=== PATIENT | female | born 1970 | race Caucasian/White ===

== ENCOUNTER 2025-05-15 13:24 | Outpatient (OUT) | payer MEDICARE, SELFPAY ==
--- OUTSIDE RECORDS SUMMARY | 2024-09-03 11:30 | XMS_ITS ---
Author Organization [facility] Servic es Address [address] [facility] [place] [address] Care Team Providers Care Crepe Sole Scourer Name Role Phone MISS Isabel Johansen Primary Care Provider REASON FOR VISIT BH F/U Encounters Encounter Location Date Provider Diagnosis [facility] [address] [facility] [place] [address] 09/03/2024 Isabel Johansen Plan Of Treatment No Information Progress Notes * CLEVELAND HOLMANADOB: 0 (54 yo F)Acc No.[id number]:09/03/2024 BH F/U - Patient Patient: ANKUR LUINDA :?RASHEED Simons LISW-SDOB:1970 ???Age:53 Y???Sex:FemaleDate:09/03/2024Phone:[phone]:[address] [place] [phone] Subjective: * Chief Complaints: * B H F/U Care Plan Details* * Electronic signature of Isabel NELIDA Johansen on 05/15/2025 at 01:28 PM EDT Sign off status: Pending * Provider: RASHEED Presley LISW-Rivka Date: 0 09/03/2024 Generated for Printing/Faxing/eTransmitting on:?05/15/2025 01:28 PM EDT
--- OUTSIDE RECORDS SUMMARY | 2024-09-16 06:00 | XMS_ITS ---
Author Organization [facility] Servic es Address [address] [facility] [place] [address] Care Team Providers Care Streetcar Motorman Name Role Phone MISS Isabel Johansen Primary Care Provider REASON FOR VISIT BH F/U Encounters Encounter Location Date Provider Diagnosis [facility] [address] [facility] [place] [address] 09/16/2024 Isabel Johansen Plan Of Treatment No Information Progress Notes * CLEVELAND HOLMANADOB: 0 (54 yo F)Acc No.[id number]:09/16/2024 BH F/U - Patient Patient: Mary VALENTINE ADI :?RASHEED Simons LISW-SDOB:1970 ???Age:53 Y???Sex:FemaleDate:09/16/2024Phone:[phone]:[address] [place] [phone] Subjective: * Chief Complaints: * B H F/U Billing Information: * Procedure Codes: Care Plan Details* * Electronic signature of NELIDA Ingram on 05/15/2025 at 01:28 PM EDT Sign off status: Pending * Provider: RASHEED Presley LISW-S Date: 0 09/16/2024 Generated for Printing/Faxing/eTransmitting on:?05/15/2025 01:28 PM EDT
--- OUTSIDE RECORDS SUMMARY | 2024-11-04 11:00 | XMS_ITS ---
Author Organization [facility] Servic es Address [address] [facility] [place] [place] [address] Care Team Providers Care Hereditary Cancer Program Coordinator Name Role Phone MISS Isabel Johansen Primary Care Provider [phone] REASON FOR VISIT BH F/U Encounters Encounter Location Date Provider Diagnosis [facility] Services [address] [facility] [place] [address] 11/04/2024 Isabel Johansen Plan Of Treatment No Information Progress Notes * CLEVELAND HOLMANADOB: 0 (54 yo F)Acc No.[id number]:11/04/2024 BH F/U - Patient Patient: Mary VALENTINE ADI :?RASHEED Simons LISW-SDOB:1970 ???Age:54 Y???Sex:FemaleDate:11/04/2024Phone:[phone]:[address] [place] [phone] Subjective: * Chief Complaints: * B H F/U Billing Information: * Procedure Codes: Care Plan Details* * Electronic signature of NELIDA Ingram on 05/15/2025 at 01:28 PM EDT Sign off status: Pending * Provider: RASHEED Presley LISW-S Date: 0 11/04/2024 Generated for Printing/Faxing/eTransmitting on:?05/15/2025 01:28 PM EDT
--- OUTSIDE RECORDS SUMMARY | 2024-12-05 12:00 | XMS_ITS ---
Author Organization [facility] Servic es Address [address] [facility] [place] [address] Care Team Providers Care Intermediate Project Manager Name Role Phone MISS Isabel Johansen Primary Care Provider [phone] REASON FOR VISIT BH F/U Encounters Encounter Location Date Provider Diagnosis [facility] [address] [facility] [place] [address] 12/05/2024 Isabel Johansen Plan Of Treatment No Information Progress Notes * CLEVELAND HOLMANADOB: 0 (54 yo F)Acc No.[id number]:12/05/2024 BH F/U - Patient Patient: Mray VALENTINE ADI :?RASHEED Simons LISW-SDOB:1970 ???Age:54 Y???Sex:FemaleDate:12/05/2024Phone:[phone]:[address] [place] [phone] Subjective: * Chief Complaints: * B H F/U Billing Information: * Procedure Codes: Care Plan Details* * Electronic signature of NELIDA Ingram on 05/15/2025 at 01:28 PM EDT Sign off status: Pending * Provider: RASHEED Presley LISW-S Date: 0 12/05/2024 Generated for Printing/Faxing/eTransmitting on:?05/15/2025 01:28 PM EDT
--- OUTSIDE RECORDS SUMMARY | 2025-05-06 11:00 | XMS_ITS | Encounter Summary ---
Author Organization [facility] Address [address] [place] [address] Care Team Providers Care Route Deliverer Name Role Phone Jus Sprague DO Primary Care Provider [phone] Jesus Green Unavailable Guillermina Martínez DO Unavailable [phone] Reason for Referral * Imaging (Routine) - ClosedSpecialtyDiagnoses / ProceduresReferred By Contact Referred To ContactRadiology Diagnoses Pain and swelling of left lower leg Procedures Vascular US lower extremity venous duplex right Jesus Green PA [address] [place] [address] Phone: tel: fax: [facility] [address] [place] [address] Phone: tel: fax: Referral IDStatusReasonStart DateExpiration DateVisits RequestedVisits [id number]/21/20254/ Reason for Visit * ReasonCommentsLeg Pain Encounter Details DateTypeDepartmentCare Team (Latest Contact Info)Guobsmtjffl17/21/2025 11:00 AM EDTOffice Visit [facility] [address] [place] [address] Jesus Green PA [address] [place] [address] Type 2 diabetes mellitus with Charcot joint [...] relatives?Once a week05/01/2023How often do you attend lutheran or alevism services?Never3Do you belong to any clubs or organizations such as lutheran groups, unions, fraternal or athletic groups, or school groups?No05/01/2023How often do you attend meetings of the clubs or organizations you belong to?Never05/01/2023re you , , , , never , or living with a partner?Living with zzkbesl1605/01/2023 AUDIT-CAnswerDate RecordedQ1: How often do you have [...] steady place to sleep or slept in [place] (including now)?No05/01/2023CommentsUnknownSex and Gender InformationValueDate RecordedSex Assigned at DedujNksevl16/19/2023 2:19 PM EDT Legal QmjLkoqlz00/15/2023 6:45 PM EDTGender NvqxilbqLphtiq15/19/2023 2:19 PM EDT Sexual OrientationNot on filedocumented as of this encounter Last Filed Vital Signs Vital SignReadingTime TakenCommentsBlood Ujfpzbwl562/8805/06/2025 11:12 AM EDT Esfjk672705/06/2025 11:12 AM UNLDhqfcdbzuuq46.5 ??C (95.9 ??F)05/06/2025 11:12 AM EDTRespiratory Rate--Oxygen Xnyxiphyqj04%05/06/2025 11:12 AM EDTInhaled Oxygen Concentration--Cmneky240 kg (226 lb 12.8 oz)05/06/2025 11:12 AM GLZJogbjl890.2 cm (5' 7 )05/06/2025 11:12 AM EDTBody [...] 11:17 AM Bela Padilla MAPatient Health Questionnaire-2 Knoxx107 11:17 AM EDT Bela Sanabria MA documented as of this encounter Progress Notes * CATHY Alamguer - 05/06/2025 11:00 AM EDT Images from [...] Plan of Treatment DateTypeDepartmentCare Team (Latest Contact Info)Ycyoxsuznyg71/30/2025 2:15 PM ESTOffice Visit [facility] [address] [place] [address] Judith Garnett, [address] [place] [address] documented as of this encounter Goals GoalPatient [...] MD Narrative 05/06/2025 3:33 PM EDT EXAM: [facility] US LOWER EXTREMITY VENOUS DUPLEX RIGHT [...] Note Alcides Lincoln MD - 05/06/2025 EXAM: [facility] US LOWER EXTREMITY VENOUS DUPLEX RIGHT [...] Lincoln MD Authorizing ProviderResult TypeResult StatusJesus Green [facility] US PROCEDURES Final Result documented [...] DO [address] [place] [address] PCP - GeneralFamily Medicine11/22/22 Jesus Green PA [address] [place] [address] Physician AssistantFamily Medicine03/20/24 Guillermina Martínez DO [address] [place] [address] Pulmonary Disease03/20/24documented as of this encounter
--- OUTSIDE RECORDS SUMMARY | 2025-05-06 11:30 | XMS_ITS | Encounter Summary ---
Author Organization [facility] Address [address] [place] [address] Care Team Providers Care Demolition Crane Operator Name Role Phone Jus Sprague DO Primary Care Provider [phone] Jesus Green Unavailable Guillermina Martínez DO Unavailable [phone] Reason for Visit * Imaging (Routine) - ClosedSpecialtyDiagnoses / ProceduresReferred By Contact Referred To ContactRadiology Diagnoses Pain and swelling of left lower leg Procedures Vascular US lower extremity venous duplex right Jesus Green, CATHY [address] [place] [address] Phone: tel: fax: [facility] [address] [place] [address] Phone: tel: fax: Referral IDStatusReasonStart DateExpiration DateVisits RequestedVisits [id number]/21/20254/ Encounter Details DateTypeDepartmentCare Team (Latest Contact Info)Omavntupptb27/21/2025 11:30 AM EDTAncillary Procedure [facility] [address] [place] [address] Pain and swelling of left [...] relatives?Once a week05/01/2023How often do you attend sikhism or jain services?Never05/01/2023o you belong to any clubs or organizations such as sikhism groups, unions, fraternal or athletic groups, or school groups?No05/01/2023How often do you attend meetings of the clubs or organizations you belong to?Never05/01/2023re you , , , , never , or living with a partner?Living with gehiggy4105/01/2023 AUDIT-CAnswerDate RecordedQ1: How often do you have [...] steady place to sleep or slept in [facility] (including now)?No05/01/2023CommentsUnknownSex and Gender InformationValueDate RecordedSex Assigned at TpuacFlpuln64/19/2023 2:19 PM EDT Legal EgoCjaeyy79/15/2023 6:45 PM EDTGender ThneihhnIdwelv69/19/2023 2:19 PM EDT Sexual OrientationNot on filedocumented as of this encounter Functional Status * Over the past 2 weeks, how often have you been bothered by any of the following problems?QuestionAnswerDate of AssessmentAuthorLittle interest or pleasure in doing thingsNot at all05/06/2025 11:17 AM Bela Padilla MA Feeling down, depressed, or hopelessNot at all05/06/2025 11:17 AM Bela Padilla MAPatient Health Questionnaire-2 Evghb549 11:17 AM EDT Bela Sanabria MA documented as of this encounter Plan of Treatment DateTypeDepartmentCare Team (Latest Contact Info)Mahzhkoziqa85/30/2025 2:15 PM ESTOffice Visit [facility][1] [address] [place] [address] Juan Miguel Garnettison Vanessa, DO [address] [place] [address] documented as of this encounter Goals GoalPatient Goal TypeAssociated ProblemsRecent ProgressPatient-Stated?Author Help patient manage antidepressant medication Care PlanPatient on antidepressant monitoring Jesus Machado, PAdocumented as of this encounter Procedures Procedure NamePriorityDate/TimeAssociated DiagnosisComments[facility] LOWER EX[facility]REM[facility]ENOUS DUPLEX WAGWLPgoxxvz05/21/2025 12:01 PM EDT Pain and swelling of [...] MD Narrative 05/06/2025 3:33 PM EDT EXAM: [facility] US LOWER EXTREMITY VENOUS DUPLEX RIGHT [...] Note Alcides Lincoln MD - 05/06/2025 EXAM: [facility] US LOWER EXTREMITY VENOUS DUPLEX RIGHT [...] DO [address] [place] [address] PCP - GeneralFamily Medicine11/22/22 Jesus Green PA [address] [place] [address] Physician AssistantFamily Medicine03/20/24 Guillermina Martínez DO [address] [place] [address] Pulmonary Disease03/20/24documented as of this encounter
--- OUTSIDE RECORDS SUMMARY | 2025-05-15 13:28 | XMS_ITS | Encounter Summary ---
Author Organization [facility] Address [address] [place] [address] Care Team Providers Care Helper/Driver Name Role Phone Jus Sprague DO Primary Care Provider [phone] Jesus Green Unavailable Guillermina Martínez DO Unavailable [phone] Encounter Details DateTypeDepartmentCare Team (Latest Contact Info)Tfyywgtcghw42/21/2025Abstract [facility] [address] [place] [address] Sarmad Martins, DPM FACFAS [address] [place] [address] Social History Tobacco UseTypesPacks/DayYears UsedDateSmoking Tobacco: NeverSmokeless [...] relatives?Once a week05/01/2023How often do you attend taoism or baptism services?Never05/01/2023o you belong to any clubs or organizations such as taoism groups, unions, [employer] or athletic groups, or school groups?No05/01/2023How often do you attend meetings of the clubs or organizations you belong to?Never05/01/2023re you , , , , never , or living with a partner?Living with toilyzl1505/01/2023 AUDIT-CAnswerDate RecordedQ1: How often do you have [...] steady place to sleep or slept in [facility] (including now)?No05/01/2023CommentsUnknownSex and Gender InformationValueDate RecordedSex Assigned at XtdtjCyqhws05/19/2023 2:19 PM EDT Legal NihGaxqcz69/15/2023 6:45 PM EDTGender UaiunaozKbvtdg48/19/2023 2:19 PM EDT Sexual OrientationNot on filedocumented as of this encounter Functional Status * Over the past 2 weeks, how often have you been bothered by any of the following problems?QuestionAnswerDate of AssessmentAuthorLittle interest or pleasure in doing thingsNot at all05/06/2025 11:17 AM Bela Padilla MA Feeling down, depressed, or hopelessNot at all05/06/2025 11:17 AM Bela Padilla MAPatient Health Questionnaire-2 Ihsph866 11:17 AM EDT Bela Sanabria MA documented as of this encounter Plan of Treatment DateTypeDepartmentCare Team (Latest Contact Info)Dllyamlypbk41/30/2025 2:15 PM ESTOffice Visit [facility] [place] [facility] [address] [place] [address] Judith Garnett, [address] [place] [address] documented as of this encounter Goals GoalPatient Goal TypeAssociated ProblemsRecent ProgressPatient-Stated?Author Help patient manage antidepressant medication Care PlanPatient on antidepressant monitoring planNoMyers, Jesus M, PAdocumented as of this encounter Visit Diagnoses Not on filedocumented in this encounter Additional Health Concerns Active ProblemsNoted DateDiagnosed DatePatient on antidepressant monitoring plan 5AssessmentNoted TimePHQ-9 Depression Total Score: 10108/07/2023 1:26 PM ESTdocumented as of this encounter Care Teams Team MemberRelationshipSpecialtyStart DateEnd Date Jus Sprague, [address] [place] [address] PCP - GeneralFamily Medicine11/22/22 Jesus Green, PA [address] [place] [address] Physician AssistantFamily Medicine03/20/24 Guillermina Martínez DO [address] [place] [address] Pulmonary Disease03/20/24documented as of this encounter
--- OUTSIDE RECORDS SUMMARY | 2025-05-15 13:28 | XMS_ITS | Patient Health Record ---
Author Organization [facility] Address [address] [place] [address] Care Team Providers Care Doubling Machine Operator Name Role Phone MISS Isabel Johansen Primary Care Provider Briseyda Willis Unavailable [phone] Jony Steven Unavailable [phone] Zheng, MS. Hernandez Unavailable [phone] Reason For Referral No Information Problems Problem Type SNOMED Code ICD Code Onset Dates Problem Status W/U Status Risk Notes Problem Posttraumatic stress disorder (4 4341072) Post traumatic stress disorder (PTSD) (F43.10) Activeconfirmed Encounters Encounter Location Date Provider Diagnosis [facility] [address] [place] [address] 05/28/2024 Isabel Johansen [facility] [place] [address]/20/2024 [facility] [place] [address] [facility] [place] [address]Isabel Zuleta traumatic stress disorder (PTSD) F43.10 [facility] [place] [place] [address]/09/2024 Isabel Zuleta traumatic stress disorder (PTSD) F43.10[facility] [address] [place] [address]Isabel Zuleta traumatic stress disorder (PTSD) F43.10[facility] [place] [address]/Katelyn MillerPost traumatic stress disorder (PTSD) F43.10[facility] [place] [address] 09/23/2024Katelyn MillerPost traumatic stress disorder (PTSD) F43.10[facility] [place] [address]/Katelyn MillerPost traumatic stress disorder (PTSD) F43.10[facility] [place] [address]/01/2025Katelyn MillerPost traumatic stress disorder (PTSD) F43.10[facility] [place] [address]/11/2024Katelyn MillerPost traumatic stress disorder (PTSD) F43.10[facility] [place] [address] 11/25/2024Katelyn MillerPost traumatic stress disorder (PTSD) F43.10 Assessments Encounter Date Diagnosis (ICD Code) Assessment Notes Treatment Notes Treatment Clinical Notes Section Notes 06/03/2024 Post traumatic stress disorder ( PTSD) (ICD-10 - F43.10) 06/24/2024ost traumatic stress disorder (PTSD) (ICD-10 - F43.10)4Post traumatic stress disorder (PTSD) (ICD-10 - F43.10)09/09/2024Post traumatic stress disorder (PTSD) (ICD-10 - F43.10)09/23/2024Post traumatic stress disorder (PTSD) (ICD-10 - F43.10)10/07/2024Post traumatic stress disorder (PTSD) (ICD-10 - F43.10)10/21/2024Post traumatic stress disorder (PTSD) (ICD-10 - F43.10) 11/18/2024Post traumatic stress disorder (PTSD) (ICD-10 - F43.10)11/25/2024Post traumatic stress disorder (PTSD) (ICD-10 - F43.10) Plan Of Treatment No Information Insurance Providers Payer Name Payer Address Payer Phone Subscriber Number Group Number Insured Name Patient Relationship to Insured Coverage Start Date Coverage End Date [employer] MEDIBLUE DUAL-ELIGB LE [address] [place] [address] [id number] ADI HOLMAN Self - patient is the insured 5 [facility] MEDICAID SECONDARYPO [address] [place] [phone] [id number], RHONDASelf - patient is the [id number] 2024[facility] [address] [place]UN[place] [id number], RHONDASelf - patient is the [id number] 2023MEDICARE [id number] [facility] EVY FANG [id number], RHONDASelf - patient is the insured 2023
--- OUTSIDE RECORDS SUMMARY | 2025-05-15 13:28 | XMS_ITS | Encounter Summary ---
Author Organization [facility] Address [address] [place] [address] Care Team Providers Care Parallel Computing Software Engineer Name Role Phone Jus Sprague DO Primary Care Provider [phone] Jesus Green Unavailable Guillermina Martínez DO Unavailable [phone] Encounter Details DateTypeDepartmentCare Team (Latest Contact Info)Nhgkpjeecuh39/24/2025Refill [facility] [address] [place] [address] Sarmad Martins, DPM FACFAS [address] [place] [address] Ulcer of right foot with fat layer exposed (HCC) (Primary Dx) Social History Tobacco UseTypesPacks/DayYears UsedDateSmoking Tobacco: NeverSmokeless [...] relatives?Once a week05/01/2023How often do you attend quaker or tenriism services?Never05/01/2023o you belong to any clubs or organizations such as quaker groups, unions, fraternal or athletic groups, or school groups?No05/01/2023How often do you attend meetings of the clubs or organizations you belong to?Never05/01/2023re you , , , , never , or living with a partner?Living with dradeql9805/01/2023 AUDIT-CAnswerDate RecordedQ1: How often do you have [...] steady place to sleep or slept in ashelter (including now)?No05/01/2023CommentsUnknownSex and Gender InformationValueDate RecordedSex Assigned at TnkxxPqhaak41/19/2023 2:19 PM EDT Legal KdaQfkbhd73/15/2023 6:45 PM EDTGender KesnsfrwThikin92/19/2023 2:19 PM EDT Sexual OrientationNot on filedocumented as of this encounter Miscellaneous Notes * Telephone Encounter - ELISABET Palma - 05/09/2025 11:37 AM EDT Pain meds acute pain documented in this encounter Plan of Treatment DateTypeDepartmentCare Team (Latest Contact Info)Nxidshumjmu66/30/2025 2:15 PM ESTOffice Visit [facility] [address] [place] [address] Judith Garnett, DO [address] [place] [address] documented as of this encounter Goals GoalPatient Goal TypeAssociated ProblemsRecent ProgressPatient-Stated?Author Help patient manage antidepressant medication Care PlanPatient on antidepressant monitoring Jesus Machado, PAdocumented as of this encounter Visit Diagnoses Diagnosis Ulcer of right foot with fat layer exposed (HCC)- Primary documented in this encounter Additional Health Concerns Active ProblemsNoted DateDiagnosed DatePatient on antidepressant monitoring plan 5AssessmentNoted TimePHQ-9 Depression Total Score: 10108/07/2023 1:26 PM ESTdocumented as of this encounter Care Teams Team MemberRelationshipSpecialtyStart DateEnd Date Jus Sprague DO [address] [place] [address] PCP - GeneralFamily Medicine11/22/22 Jesus Green, PA [address] [place] [address] Physician AssistantFamily Medicine03/20/24 Guillermina Martínez DO [address] [place] [address] Pulmonary Disease03/20/24documented as of this encounter
--- OUTSIDE RECORDS SUMMARY | 2025-05-15 13:28 | XMS_ITS | Encounter Summary ---
Author Organization [facility] Address [address] [place] [address] Care Team Providers Care Propulsion Systems Engineer Name Role Phone Jus Sprague DO Primary Care Provider [phone] Jesus Green Unavailable Guillermina Martínez DO Unavailable [phone] Encounter Details DateTypeDepartmentCare Team (Latest Contact Info)Esgeufbwkog83/21/2025amboo flowsheet [facility] [address] [facility] [address] [place] [address] Jesus Green, CATHY [address] [facility] [address] [place] [address] Social History Tobacco UseTypesPacks/DayYears UsedDateSmoking Tobacco: NeverSmokeless [...] relatives?Once a week05/01/2023How often do you attend mormon or adventist services?Never05/01/2023o you belong to any clubs or organizations such as mormon groups, unions, [employer] or athletic groups, or school groups?No05/01/2023How often do you attend meetings of the clubs or organizations you belong to?Never05/01/2023re you , , , , never , or living with a partner?Living with rqjjqtl6705/01/2023 AUDIT-CAnswerDate RecordedQ1: How often do you have [...] now)?No05/01/2023CommentsUnknownSex and Gender InformationValueDate RecordedSex Assigned at FwzmlLzudun54/19/2023 2:19 PM EDT Legal UtaIdrhlu25/15/2023 6:45 PM EDTGender LbuwkersTbdmee95/19/2023 2:19 PM EDT Sexual OrientationNot on filedocumented as of this encounter Plan of Treatment DateTypeDepartmentCare Team (Latest Contact Info)Sbpfddtvvnt21/30/2025 2:15 PM ESTOffice Visit [facility] [address] [place] [address] Judith Garnett DO [address] [place] [address] documented as of this encounter Goals GoalPatient Goal TypeAssociated ProblemsRecent ProgressPatient-Stated?Author Help patient manage antidepressant medication Care PlanPatient on antidepressant monitoring planJesus Worthington, PAdocumented as of this encounter Visit Diagnoses Not on filedocumented in this encounter Additional Health Concerns Active ProblemsNoted DateDiagnosed DatePatient on antidepressant monitoring plan 12/11/2024ssessmentNoted TimePHQ-9 Depression Total Score: 1:26 PM ESTdocumented as of this encounter Care Teams Team MemberRelationshipSpecialtyStart DateEnd Date Jus Sprague DO [address] [place] [address] PCP - GeneralFamily Medicine11/22/22 Jesus Green PA [address] [place] [address] Physician AssistantFamily Medicine03/20/24 Guillermina Martínez DO [address] [place] [address] Pulmonary Disease03/20/24documented as of this encounter
--- OUTSIDE RECORDS SUMMARY | 2025-05-15 13:28 | XMS_ITS | Clinical Summary ---
Author Organization [facility] Address [address] [place] [address] Care Team Providers Care Phlebotomy Instructor Name Role Phone Jus Sprague DO Primary Care Provider [phone] Jesus Green Unavailable Guillermina Martínez DO Unavailable Allergies Active AllergyReactionsCriticalityNoted DateCommentsAmoxicillin-Pot Clavulanate FfziWou7311/18/2022arbamide Afkspdwm33/27/5297YmojlrahvdkUsbwwNta71/05/2023 Mold - ears GjdzkrecuwvrzvOvtmqYli94/05/2023 Mold - ears KharxiexoxrCxtcVqo42/05/2023 Medications MedicationSigDispense QuantityRefillsLast FilledStart DateEnd DateStatus acetaminophen (Tylenol) 500 MG tablet 1 tablet Orally at bedtimeActive albuterol HFA 90 mcg/act inhaler Indications:WheezingInhale 2 puffs every 4 (four) hours if needed for wheezing or shortness of breath 18 g ctive EPINEPHrine (Epipen) 0.3 MG/0.3ML injection syringe Indications:Allergic reaction to food, initial encounterInject 0.3 mL (0.3 mg) as directed 1 (one) time for 1 dose use as directed for allergic reaction and then call 911 0.3 mL ctive meclizine (Antivert) 25 MG tablet Indications:VertigoTake 2 tablets (50 mg) by mouth 2 (two) times a day as needed for dizziness 30 tablet 03/13/2024ctive pen needle 31G x 8 mm misc Indications:Type 2 diabetes mellitus with hypoglycemia without coma, with long- term current use of insulin ([facility])Injection subcutaneous 5 times a day 200 each 4Active atorvastatin (Lipitor) 10 MG tablet Indications:Mixed hyperlipidemiaTake 1 tablet (10 mg) by mouth Daily 90 tablet 4Active cetirizine (ZyrTEC) 10 MG tablet Indications:Allergic rhinitis, unspecified seasonality, unspecified triggerTake 1 tablet (10 mg) by mouth Daily as needed (q24hrs) 90 tablet 5Active fluticasone (Cutivate) 0.005 % ointment Indications:Rash and nonspecific skin eruptionApply topically 2 (two) times a day 60 g 5Active rOPINIRole (Requip) 3 MG tablet Indications:Restless Leg SyndromeTake 1 tablet (3 mg) by mouth in the morning and 1 tablet (3 mg) in the evening and 1 tablet (3 mg)before bedtime. 270 tablet 5Active ondansetron (Zofran) 8 MG tablet Indications:Bilious vomiting with nauseaTAKE 1 TABLET BY MOUTH EVERY 8 HOURS NEEDED FOR NAUSEA AND/OR VOMITING 20 tablet 5Active spironolactone (Aldactone) 25 MG tablet Take 25 mg by mouth in the morning.6Active furosemide (Lasix) 40 MG tablet Take 40 mg by mouth Daily5Active sertraline (Zoloft) 50 MG tablet Indications:AnxietyTake 1 tablet (50 mg) by mouth Daily 30 tablet /5Active metFORMIN (Glucophage) 500 MG tablet Indications:Diabetic polyneuropathy associated with type 2 diabetes mellitus (HCC)Take 1 tablet (500 mg) by mouth in the morning and 1 tablet (500 mg) before bedtime. 180 tablet [id number] lidocaine (Uro-Jet) 2 % gel Indications:Chronic foot ulcer, right, with necrosis of muscle ([facility])Insert into the urethra if needed for mild pain 60 mL 5Active Tirzepatide (Mounjaro) 7.5 MG/0.5ML solution auto-injector Indications:Type 2 diabetes mellitus with Charcot joint arthropathy ([facility])Inject 7.5 mg under the skin 1 (one) time per week 6 mL 5Active montelukast (Singulair) 10 MG tablet Indications:Allergic rhinitis, unspecified seasonality, unspecified triggerTake 1 tablet (10 mg) by mouth at bedtime 90 tablet 3065Active sertraline (Zoloft) 100 MG tablet Indications:AnxietyTAKE 1 TABLET BY MOUTH DAILY 90 tablet 1075Active Rcloqdabmfc-Azvogfezr-Msypnb (Trelegy Ellipta) 100-62.5-25 MCG/ACT aerosol powder Indications:Obstructive airway disease (HCC)INHALE 1 PUFF BY MOUTH DAILY 60 each 505Active Continuous Glucose Sensor (FreeStyle Leyla 3 Plus Sensor) [facility] [place] Indications:Type 2 diabetes mellitus with Charcot joint arthropathy (HCC)1 Device Every 15 Days 6 each 3085Active gabapentin (Neurontin) 300 MG capsule Indications:Diabetic polyneuropathy associated with type 2 diabetes mellitus (HCC)Take 1 capsule (300 mg) by mouth in the morning and 1 capsule (300 mg) in the evening and 1 capsule(300 mg) before bedtime. 270 capsule 5Active carvedilol (Coreg) 25 MG tablet Indications:Primary hypertensionTAKE 1 TABLET BY MOUTH 2 TIMES A DAY IN THE MORNING AND EVENING WITH MEALS 180 tablet 5Active Brexpiprazole (Rexulti) 1 MG tablet Indications:Anxiety,Moderate episode of recurrent major depressive disorder (HCC)Take 1 mg by mouth Daily 90 tablet 5Active insulin glargine (Lantus SoloStar) 100 UNIT/ML pen Indications:Diabetic polyneuropathy associated with type 2 diabetes mellitus (HCC)Inject 24 Units under the skin in the morning and 24 Units before bedtime. 30 mL 5Active insulin lispro (HumaLOG) 100 UNIT/ML injection Indications:Diabetic polyneuropathy associated with type 2 diabetes mellitus (HCC)10 units breakfast/lunch, 15 units dinner plus correction (max daily 50 units) 45 mL 5Active zolpidem (Ambien) 10 MG tablet Indications:Psychophysiological insomniaTake 1 tablet (10 mg) by mouth as needed at bedtime for sleep 30 tablet 5Active cyclobenzaprine (Flexeril) 10 MG tablet Indications:Sciatica of left sideTake 1 tablet (10 mg) by mouth 3 (three) times a day as needed for muscle spasms 30 tablet 5Active LORazepam (Ativan) 1 MG tablet Indications:Psychophysiological insomniaTake 1 tablet (1 mg) by mouth every 6 (six) hours if needed for anxiety 30 tablet 5Active hydrALAZINE (Apresoline) 25 MG tablet Indications:Primary hypertensionTake 1 tablet (25 mg) by mouth in the morning and 1 tablet (25 mg) before bedtime. 180 tablet 5Active omeprazole (PriLOSEC) [address] capsule Indications:Gastroesophageal reflux disease without esophagitisTake 1 capsule (20 mg) by mouth in the morning. Take before meals. Do not crush or chew.Take 1 capsule (20 mg) by mouth in the morning. Take before meals. Do not crush or chew. 90 capsule 5Active sulfamethoxazole-trimethoprim (Bactrim DS) 800-160 MG per tablet Indications:Cellulitis of right lower extremityTake 1 tablet by mouth in the morning and 1 tablet before bedtime. Do all this for 10 days. 20 tablet /5Active insulin lispro (HumaLOG) 100 UNIT/ML injection Indications:Diabetic polyneuropathy associated with type 2 diabetes mellitus (HCC)1:5 breakast/dinner, 1:8 lunch (max daily 50 units) 45 mL Discontinued(Dose adjustment) fluticasone (Flonase) 50 MCG/ACT nasal spray Indications:Nasal congestionAdminister 1-2 sprays into each nostril Daily Shake gently. Before first use, prime pump. After use, clean tip and replace cap 16 g Discontinued Emollient (Cetaphil) moisturizing lotion Indications:Rash and nonspecific skin eruptionApply topically if needed for dry skin 237 mL Discontinued insulin glargine (Lantus SoloStar) 100 UNIT/ML pen Indications:Diabetic polyneuropathy associated with type 2 diabetes mellitus (HCC)Inject 18 Units under the skin in the morning and 18 Units before bedtime. 30 mL /07/2024Discontinued(Dose adjustment) omeprazole (PriLOSEC) [address] capsule Indications:Gastroesophageal reflux disease without esophagitisTake 1 capsule (20 mg) by mouth in the morning. Take before meals. Do not crush or chew.Take 1 capsule (20 mg) by mouth in the morning. Take before meals. Do not crush or chew. 90 capsule Discontinued(Reorder) hydrALAZINE (Apresoline) 25 MG tablet Indications:Primary hypertensionTAKE 1 TABLET BY MOUTH EVERY MORNING AND TAKE 1 TABLET BY MOUTH EVERY NIGHT AT BEDTIME 60 tablet Discontinued(Reorder) HYDROcodone-acetaminophen (Driscoll) 5-325 MG tablet Indications:Ulcer of right foot with fat layer exposed (HCC)Take 1 tablet by mouth every 6 (six) hours if needed for severe pain for up to 5 days 20 tablet Expired sodium hypochlorite (Dakin's, HALF-Strength,) external solution Indications:Ulcer of right foot with fat layer exposed (HCC)Apply topically 1 (one) time for 1 dose 300 mL Expired LORazepam (Ativan) 1 MG tablet Indications:Psychophysiological insomniaTake 1 tablet (1 mg) by mouth every 6 (six) hours if needed for anxiety 30 tablet Discontinued(Reorder) zolpidem (Ambien) 10 MG tablet Indications:Psychophysiological insomniaTake 1 tablet (10 mg) by mouth as needed at bedtime for sleep 30 tablet Discontinued(Reorder) cyclobenzaprine (Flexeril) 10 MG tablet Indications:Sciatica of left sideTake 1 tablet (10 mg) by mouth 3 (three) times a day as needed for muscle spasms 30 tablet Discontinued(Reorder) HYDROcodone-acetaminophen (Driscoll) 5-325 MG tablet Indications:Ulcer of right foot with fat layer exposed (HCC)Take 1 tablet by mouth every 6 (six) hours if needed for severe pain for up to 5 days 20 tablet 51Expired Active Problems ProblemNoted DateDiagnosed DateType 2 diabetes mellitus with hyperglycemia, with long-term current use of wnscflo6812/13/2024Type 2 diabetes mellitus with stage 3b chronic kidney disease, with long-term current use of ggitgvf9812/13/2024Stage 3 chronic kidney cuddyiz6010/01/2024Low cqdgepamsy85/18/2025Symptomatic anemia 10/01/2024Foreign body in right foot10/01/2024hronic ulcer of right foot with necrosis of kyydty6310/01/2024MI 40.0-44.9, adult09/03/2024Sleep apnea09/03/2024 CKD (chronic kidney disease)04/17/20244166Qfzdt05/02/2024Shortness of breath 04/17/2024Essential msuorwuyfltu20/02/5679Bchvlujqzx93/27/2024Osteomyelitis 03/12/2024osttraumatic stress /27/2024ellulitis of foot, right 01/08/2024Ulcer of toe of right foot01/08/2024ellulitis of right leg01/08/2024 TAYLOR (acute kidney injury)12/21/2023OPD (chronic obstructive pulmonary disease) 12/21/20231195Llsymjajfmix68/06/2024cute kidney prbhxn1112/21/2023alculus of gallbladder without cholecystitis without xbwwhvqxsiw20/01/2024holelithiasis without zkoxjswlglu27/01/2024Allergic fpzoeggs11/05/9289Cubumls62/05/2023harcot arthropathy of jxksyvx0711/18/2022Type 2 diabetes mellitus with Charcot joint bddivcerqqr15/05/2023 Assessment & Plan (04/16/2025 4:41 PM EDT): During the appointment today all pertinent labs, imaging, health maintenance, and glucose readings were reviewed. Encouraged to check blood glucose throughout the day with some fasting and some PP readings. They are to bring their glucose meter/cgm in to all appointments. All of the patients questions, treatment options, and current care plan and goals were discussed. Acopy of this along with pertinent instructions were given to the patient at the end of the appointment. The patient voices understanding of all of this and is to call in between appointments if they have any problems or questions. Sigrid Archer is struggling to gain control of their diabetes. I am very concerned for diabetes related complications. , The patient is wearing their cgm on a daily basis and making decisions in regards to adjusting insulin daily as well for at least the last 60 days , Discussed dietary changes at length. Encouraged to limit simple carbs and focus more on healthy protein/fat with all meals andsnacks. They should also avoid any sugary drinks. , Instructed on the importance of taking insulin before eating. If it has been more than 30-45 min since eating they should not give the meal dose but should just give a correction insulin dose. , Instructed on the proper insulin injection technique either in the abdomen, upper outer thigh, or back of the arm. They are to rotate injection sites toprevent scar tissue. , Instructions given today include: Insulin instructions and Dietary education. Will increase lantus and give her set doses for her humalog as she is not really counting carbs/calculating the carb ratio correctly. She doesn't feel comfortable doing this and would like set insulin doses. Assessment & Plan (12/13/2024 9:43 AM EDT): During the appointment today all pertinent labs, imaging, health maintenance, and glucose readings were reviewed. Encouraged to check blood glucose throughout the day with some fasting and some PP readings. They are to bring their glucose meter/cgm in to all appointments. All of the patients questions, treatment options, and current care plan and goals were discussed. Acopy of this along with pertinent instructions were given to the patient at the end of the appointment. The patient voices understanding of all of this and is to call in between appointments if they have any problems or questions. Sigrid Archer is struggling to gain control of their diabetes. I am very concerned for diabetes related complications. , The patient is wearing their cgm on a daily basis and making decisions in regards to adjusting insulin daily as well for at least the last 60 days , Discussed dietary changes at length. Encouraged to limit simple carbs and focus more on healthy protein/fat with all meals andsnacks. They should also avoid any sugary drinks. , Instructed on the importance of taking insulin before eating. If it has been more than 30-45 min since eating they should not give the meal dose but should just give a correction insulin dose. , Instructed on the proper insulin injection technique either in the abdomen, upper outer thigh, or back of the arm. They are to rotate injection sites toprevent scar tissue. , Instructions given today include: Insulin instructions and Dietary education. She is working on getting back on track. Will change to leyla 3 cgm. Discussed counting carbs as Idon't think she was always doing this correctly before. Will increase her mounjaro as well as lantus. Will decrease metformin due to declined kidney function. Assessment & Plan (08/20/2023 4:59 PM EST): During the appointment today all pertinent labs, imaging, health maintenance, and glucose readings were reviewed. Encouraged to check blood glucose throughout the day with some fasting and some PP readings. They are to bring their glucose meter/cgm in to all appointments. All of the patients questions, treatment options, and current care plan and goals were discussed. Acopy of this along with pertinent instructions were given to the patient at the end of the appointment. The patient voices understanding of all of this and is to call in between appointments if they have any problems or questions. Sigrid Archer is struggling to gain control of their diabetes. I am very concerned for diabetes related complications. , Discussed dietary changes at length. Encouraged to limit simple carbs and focus more on healthy protein/fat with all meals and snacks. They should also avoid any sugary drinks. , Instructions given today include: Dietary education. Will add mounjaro. GLP-1 and GLP-1/GIP agonist: Instructed on injection technique and the use of the medication. Pt has no hx of pancreatitis or fmh of mtc. Pt is to call if any significant vomiting, diarrhea, or reflux. Deformity of right foot11/18/20223585Yepzpbqzlg19/05/2023iabetic polyneuropathy associated with type 2 diabetes icxmjncq48/05/2023 Assessment & Plan (04/21/2023 12:36 PM EDT): During the appointment today all pertinent labs, imaging, health maintenance, and glucose readings were reviewed. Encouraged to check blood glucose throughout the day with some fasting and some PP readings. They are to bring their glucose meter/cgm in to all appointments. All of the patients questions, treatment options, and current care plan and goals were discussed. Acopy of this along with pertinent instructions were given to the patient at the end of the appointment. The patient voices understanding of all of this and is to call in between appointments if they have any problems or questions. Sigrid Archer is struggling to gain control of their diabetes. I am very concerned for diabetes related complications. , The patient is wearing their cgm on a daily basis and making decisions in regards to adjusting insulin daily as well for at least the last 60 days , Discussed dietary changes at length. Encouraged to limit simple carbs and focus more on healthy protein/fat with all meals andsnacks. They should also avoid any sugary drinks. , Instructed on the importance of taking insulin before eating. If it has been more than 30-45 min since eating they should not give the meal dose but should just give a correction insulin dose. , Instructions given today include: Insulin instruction s and Dietary education. She is to work on improving her diet and given suggestions for this. Will increase insulin to try and improve control. Dineuukb28/05/2023Moderate nonproliferative diabetic retinopathy of both eyes with macular edema associated with type2 diabetes /05/2023lass 2 severe obesity due to excess calories with serious comorbidity and body mass index (BMI) of35.0 to 35.9 in adult11/18/2022Nuclear senile xdbrdwka52/05/2023 Eefrgkceti98/05/2023Restless legs wrzjxjke10/05/2023Restless legs11/18/2022Not bearing weight on lower /22/2020Open wound of foot08/07/2019Diabetic foot ulcer04/05/2019 Resolved Problems ProblemNoted DateDiagnosed DateResolved DateDiabetes mellitus due to underlying condition with diabetic xthulkbxuglbgf84Diabetes04/17/2024 12/13/2024Long-term insulin useLong term current use of pgbyrmc31Type 2 diabetes mellitus with hypoglycemia without comaType 2 diabetes mellitus without gzfovudpsyztc65/05/2023 3Charcot joint of foot/ Overview (10/01/2024): Outside Source Comment: Last Assessment & Plan: During the appointment today all pertinent labs, imaging, health maintenance, andglucose readings were reviewed. Encouraged to check blood glucose throughout the day with some fasting and some PP readings. They are to bring their glucose meter/cgm in to all appointments. All ofthe patients questions, treatment options, and current care plan and goals were discussed. A copy of this along with pertinent instructions were given to the patient at the end of the appointment. The patient voices understanding of all of this and is to call in between appointments if they have any problems or questions. Sigrid Archer is struggling to gain control of their diabetes. I am very concerned for diabetes related c omplications. , Discussed dietary changes at length. Encouraged to limit simple carbs and focus more on healthy protein/fat with all meals and snacks. They shouldalso avoid any sugary drinks. , Instructions given today include: Dietary education. Will add mounjaro. GLP-1 and GLP-1/GIP agonist: Instructed on injection technique and the use of the medication.Pt has no hx of pancreatitis or fmh of mtc. Pt is to call if any significant vomiting, diarrhea, orreflux. Polyneuropathy due to type 2 diabetes qoorpkdb24 Overview (10/01/2024): Outside Source Comment: Last Assessment & Plan: During the appointment today all pertinent labs, imaging, health maintenance, andglucose readings were reviewed. Encouraged to check blood glucose throughout the day with some fasting and some PP readings. They are to bring their glucose meter/cgm in to all appointments. All ofthe patients questions, treatment options, and current care plan and goals were discussed. A copy of this along with pertinent instructions were given to the patient at the end of the appointment. The patient voices understanding of all of this and is to call in between appointments if they have any problems or questions. Sigrid Archer is struggling to gain control of their diabetes. I am very concerned for diabetes related complications. , The patient is wearing their cgm on a daily basisand making decisions in regards to adjusting insulin daily as well for at least the last 60 days , Discussed dietary changes at length. Encouraged to limit simple carbs and focus more on healthy protein/fat with all meals and snacks. They should also avoid any sugary drinks. , Instructed on the importance of taking insulin before eating. If it has been more than 30-45 min since eating they shouldnot give the meal dose but should just give a correction insulin dose. , Instructions given today include: Insulin instructions and Dietary education. She is to work on improving her diet and given suggestions for this. Will increase insulin to try and improve control. Diabetic macular edema with retinopathy associated with type 2 diabetes mellitus Foot tlblkutlk83 Encounters DateTypeDepartmentCare HcpmDrhvvutfzku79/24/2025Refill [facility] [address] [place] [phone] Sarmad Martins, DPM FACFAS Ulcer of right foot with fat layer exposed (HCC) (Primary Dx)05/06/2025 11:30 AM EDTAncillary Procedure [facility] [address] [place] [phone] Pain and swelling of left lower leg05/06/2025 11:00 AM EDTOffice Visit [facility] [address] [place] [phone] Jesus Green PA Type 2 diabetes mellitus with Charcot joint arthropathy (HCC) (Primary Dx); Psychophysiological insomnia; Sciatica of left side; Primary hypertension; Gastroesophageal reflux disease without esophagitis; Gait instability; 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); Pain and swelling of right lower vdyreprhc01/21/2025Results Follow-Up [facility] [address] [place] [phone] Jesus Green PA Vascular US lower extremity venous duplex right10/21/2025Orders Only [facility] [address] [place] [phone] Jesus Green, PA Cellulitis of right lower extremity (Primary Dx)05/06/2025bstract [facility] [address] [place] [address] Dolce, Sarmad R, DPM FACFAS 05/06/2025amboo flowsheet [facility] [address] [place] [address] Jesus Green PA 05/06/20252291Qajlou52/20/2025Telephone [facility] [address] [place] [phone] Elena Damico RN Cqbxhcadggn59/17/2025Telephone [facility] [address] [place] [phone] Dolce, Sarmad R, DPM FACFAS 04/30/2025bstract [facility] [address] [place] [phone] Dolce, Sarmad R, DPM FACFAS 04/25/2025bstract [facility] [address] [place] [address] Dolce, Sarmad R, DPM FACFAS 04/15/2025 3:15 PM EDTOffice Visit [facility] [address] [place] [phone] Judith Garnett, DO Diabetic polyneuropathy associated with type 2 diabetes mellitus (HCC) (Primary Dx); Type 2 diabetes mellitus with Charcot joint arthropathy (HCC); Type 2 diabetes mellitus with stage 3b chronic kidney disease, with long-term current use of insulin (HCC); Moderate nonproliferative diabetic retinopathy of both eyes with macular edema associated with type2 diabetes mellitus (HCC); Class 2 severe obesity due to excess calories with serious comorbidity and body mass index (BMI) of35.0 to 35.9 in adult ([facility])04/15/2025amboo flowsheet [facility] [address] [place] [address] Judith Garnett, 04/15/20253306Fuazmg14/26/2025 11:00 AM EDTOffice Visit [facility] [address] [place] [phone] Jesus Green, PA Psychophysiological insomnia; Sciatica of left side; Anxiety; Moderate episode of recurrent major depressive disorder (HCC)04/11/2025Travel 04/11/2025Refill [facility] [address] [place] [address], [place] [address] Sarmad Martins, DPM FACFAS Ulcer of right foot with fat layer exposed (HCC) (Primary Dx)04/10/2025bstract [facility] [address] [place] [address] Sarmad Martins, DPM FACFAS 03/27/2025Refill [facility] [address] [place] [address] Jus Sprague, DO Primary kwrrsnfqyvqp72/10/2025Refill [facility] [address] [place] [phone] Jus Sprague, DO Diabetic polyneuropathy associated with type 2 diabetes mellitus (HCC)03/12/2025 11:20 AM EDTOffice Visit [facility] [address] [place] [phone] Jesus Green, PA Anxiety (Primary Dx); Moderate episode of recurrent major depressive disorder (HCC); Frequency of urination; Psychophysiological insomnia; Diabetic ulcer of left foot associated with type 2 diabetes mellitus, with bone involvement withoutevidence of necrosis, unspecified part of foot (HCC) 03/12/2025amb flowsheet [facility] [address] [place] [phone] Jesus Green PA 03/12/20257705Cmxtmd19/26/2025Telephone [facility] [address] [place] [address] Judith Garnett, DO Appointment Pdeaand4903/10/2025Ref[facility] Pod[address] [phone] Dolce, Sarmad R, DPM FACFAS Ulcer of right foot with fat layer exposed (HCC) (Primary Dx)03/07/2025[facility] [address] [place] [address] Jesus Green, PA Psychophysiological insomnia; Sciatica of left side03/07/2025Ref[facility] [address] [place] [address] Judith Garnett, DO Type 2 diabetes mellitus with Charcot joint arthropathy (HCC)03/07/2025[facility] [address] [place] [address] Jus Sprague, DO Primary apkibxruukft70/21/[address]25Ref[address] [phone] Dolce, Sarmad R, DPM FACFAS Ulcer of right foot with fat layer exposed (HCC) (Primary Dx)02/28/2025bstract [facility] [address] [place] [address] Dolce, Sarmad R, DPM FACFAS 02/28/2025bstract [facility] [address] [place] [address] Dolce, Sarmad R, DPM FACFAS 02/27/2025[facility] [address] [place] [address] Jesus Green, PA Psychophysiological waprhoxv07/13/2025bstract [facility] Pod[facility]r[address] [place] [address] Sarmad Martins R, DPM FACFAS 02/24/2025Telephone [facility] [address] [place] [address] Sarmad Martins R, DPM FACFAS 02/24/2025bstract [facility] [address] [place] [address] Jus Sprague, DO 02/22/2025Refill [facility] Pulmon[facility] [address] [place] [address] Guillermina Martínez, DO Obstructive airway disease (HCC)02/19/2025bstract [facility] [address] [place] [address] Jus Sprague, DO 02/13/2025bstract [facility] [address] [place] [address] Sarmad Martins R, DPM FACFAS from Last 3 Months Immunizations ImmunizationAdministration DatesNext DrtOzbn6403/18/2019 Family History Medical HistoryRelationNameCommentsNo Known ProblemsBrotherCOPDFatherRon Suzi HypertensionFatherRon ChaffinBreast cancerMaternal GrandmotherHyperlipidemia MotherKathy ChaffinHypertensionMotherKathy ChaffinSeizuresMotherKathy Suzi Transient ischemic attackMotherKathy ChaffinUlcerative colitisMotherKathy ChaffinBreast cancerPaternal GrandmotherNo Known ProblemsSisterColon cancerNeg HxOvarian cancerNeg HxRelationNameStatusCommentsBrother1 brotherFatherRon ChaffinAliveMaternal GrandmotherMotherKathy ChaffinDeceasedPaternal Grandmother Sister1 sister Social History Tobacco UseTypesPacks/DayYears UsedDateSmoking Tobacco: NeverSmokeless Tobacco: Never Tobacco Cessation:Counseling Given: Yes Alcohol UseStandard Drinks/WeekCommentsNever0 (1 standard drink = 0.6 oz pure alcohol)caffeine intake : noneHumiliation, Afraid, Rape, and Kick questionnaire AnswerDate RecordedWithin the last year, have you been afraid of your partner or ex-partner?No05/01/2023Within the last year, have you been humiliated or emotionally abused in other ways by your partner or ex-partner?No05/01/2023 Within the last year, have you been kicked, [...] relatives?Once a week05/01/2023How often do you attend spiritism or rastafari services?Never3Do you belong to any clubs or organizations such as spiritism groups, unions, fraternal or athletic groups, or school groups?No05/01/2023How often do you attend meetings of the clubs or organizations you belong to?Never05/01/2023re you , , , , never , or living with a partner?Living with bujbeeb6305/01/2023 AUDIT-CAnswerDate RecordedQ1: How often do you have [...] steady place to sleep or slept in [facility] (including now)?No05/01/2023CommentsUnknownSex and Gender InformationValueDate RecordedSex Assigned at XjshpUmkxai14/19/2023 2:19 PM EDT Legal CncHeziok13/15/2023 6:45 PM EDTGender SeaffnusTrgzyv87/19/2023 2:19 PM EDT Sexual OrientationNot on file Last Filed Vital Signs Vital SignReadingTime TakenCommentsBlood Ipvmdgph091/8805/06/2025 11:12 AM EDT Quhrg994205/06/2025 11:12 AM AUKJrklrifasdc01.5 ??C (95.9 ??F)05/06/2025 11:12 AM EDTRespiratory Rate--Oxygen Qfbujianxb11%05/06/2025 11:12 AM EDTInhaled Oxygen Concentration--Mzfwah231 kg (226 lb 12.8 oz)05/06/2025 11:12 AM YWCHzuopi482.2 cm (5' 7 )05/06/2025 11:12 AM EDTBody Mass Index35.5205/06/2025 11:12 AM EDT Plan of Treatment DateTypeDepartmentCare Team (Latest Contact Info)Dinxcnnbfan07/30/2025 2:15 PM ESTOffice Visit [facility] [address] [place] [address] Judith Garnett, [address] [place] [address] Health MaintenanceDue DateLast DoneCommentsCT Nhipsonpjtuf36/11/1970Colonoscopy 1969Colorectal Cancer Htvzwttyq97/11/1970FIT-DNA1969FIT1969 FOBT1969 4504Ffhkndrrhrecb12/11/1970Pap Smear1990Cervical Cancer Iyycegfar73/11/2000HPV/Kimgly9409/25/1999Diabetes: Urine Protein Screening 41, 04/20/2022Influenza Vaccine (#1)2025Medicare Annual Wellness (AWV), 06/07/2024, 05/01/2023, Additional history existsDiabetes: Hemoglobin A1C509/, 12/11/2024, 10/02/2024, Additional history hjnlnuBfojfzvhx84/14/202603/, 3Diabetes: Retinopathy Omsfanzvf44, 09/19/2024, 08/01/2024, Additional history exists Goals GoalPatient Goal TypeAssociated ProblemsRecent ProgressPatient-Stated?Author Help patient manage antidepressant medication Care PlanPatient on antidepressant monitoring Jesus Machado PA Procedures Procedure NamePriorityDate/TimeAssociated DiagnosisCommentsVASC US LOWER EXTREMITY VENOUS DUPLEX LTSKHRsypaiy39/21/2025 12:01 PM EDT Pain and swelling of left lower leg POCT GLYCOSYLATED HEMOGLOBIN (HGB A1C)Iqzuenb4404/15/2025 3:28 PM EDT Type 2 diabetes mellitus with Charcot joint arthropathy (HCC) POCT URINALYSIS EYNVYCNEKpbfjdl94/27/2025 12:49 PM EDT Frequency of urination DIABETIC RETINOPATHY SCREENING - OU - BOTH JVFSFrqkork02/20/2025 4:16 PM EDTBI MAMMOGRAM SCREENING TOMOSYNTHESIS IVJDFIRIJInxlhpp88/14/2025 8:22 AM EDT Encounter for screening mammogram for malignant neoplasm of breast MICROALBUMIN / CREATININE URINE YDWDDZsztuhk77/31/2023 8:07 AM EDT from Last 3 Months or Most Recently Relevant to Health Maintenance Results * Vascular US lower extremity venous duplex right (05/06/2025 12:01 PM EDT) Anatomical RegionLateralityModalityLower ExtremitiesUltrasoundSpecimen (Source)Anatomical Location / LateralityCollection Method / VolumeCollection TimeReceived Time05/06/2025 3:24 PM EDT Impressions 05/06/2025 3:33 PM EDT NO RIGHT LOWER EXTREMITY DVT IDENTIFIED. ELECTRONICALLY SIGNED BY: Alcides Lincoln MD Narrative 05/06/2025 3:33 PM EDT EXAM: [facility] US LOWER EXTREMITY VENOUS DUPLEX RIGHT DATE:05/06/2025 [...] rightinguinal lymph node is noted. Procedure Note Alcdies Lincoln MD - 05/06/2025 EXAM: [facility] US LOWER EXTREMITY VENOUS DUPLEX RIGHT DATE:05/06/2025 [...] Lincoln MD Authorizing ProviderResult TypeResult StatusJesus Green [facility] US PROCEDURES Final Result * POCT glycosylated hemoglobin (Hb A1C) docked device (04/15/2025 3:28 PM EDT) ComponentValueRef RangeTest MethodAnalysis TimePerformed AtPathologist SignatureHemoglobin A1C12.2Specimen (Source)Anatomical Location / Laterality Collection Method / VolumeCollection TimeReceived TimeBloodVenous blood specimen / Ypnbejw8704/15/2025 3:28 PM EDT Narrative Authorizing ProviderResult TypeResult Alexandra Garnett DOPOINT OF CARE TEST ENTER/EDIT ORDERABLESFinal Result * (ABNORMAL) POCT urinalysis dipstick manually resulted (03/12/2025 12:49 PM EDT)ComponentValueRef RangeTest MethodAnalysis TimePerformed AtPathologist SignatureColor, UAYellowClarity, UAClearGlucose, UAModerateNegative - 2000(110) ++++ mg/dLBilirubin, UANegativeNegative - 4(70) +++ mg/dLKetones, UA NegativeNegative - 160(16) ++++ mg/dLSpec Grav, UA1.0151 - 1.03Blood, UA NegativeNegative - 50 Kennedy/mcLpH, UA6.55 - 9Protein, UA2+Negative - 2000(20) ++++ mg/dLUrobilinogen, UA0.20.2 - 12 mg/dLLeukocytes, UANegativeNegative - 500+++ Yg/mcLNitrite, UANegativeNegative - PositiveSpecimen (Source) Anatomical Location / LateralityCollection Method / VolumeCollection Time Received MuhuWwopn64/27/2025 12:49 PM EDT Narrative Authorizing ProviderResult TypeResult Sree Green PAPOINT OF CARE TEST ENTER/EDIT ORDERABLESFinal Result * (ABNORMAL) Diabetic Retinopathy Screening - OU - Both Eyes (10/03/2024 4:16 PM EDT)Anatomical RegionLateralityModalityHeadOther Narrative Authorizing ProviderResult TypeResult Chandana GOMEZ PHOTOGRAPHY Final Result * Bilateral screening mammogram with tomosynthesis (09/27/2024 8:22 AM EDT) Anatomical RegionLateralityModalityBreastBilateralMammographySpecimen (Source) Anatomical Location / LateralityCollection Method / VolumeCollection Time Received Time09/29/2024 11:32 AM EDT Impressions 09/29/2024 11:38 AM EDT Impression: No specific evidence of malignancy seen in either breast. BIRADS 2 - Benign Findings DENSITY: There are scattered areas of fibroglandular density. FOLLOW-UP: Routine Screening Mammogram ELECTRONICALLY SIGNED BY: Jose R Cano M.D. Narrative 09/29/2024 11:38 AM EDT Examination: BI MAMMOGRAM SCREENING TOMOSYNTHESIS BILATERAL Clinical History: Breast cancer screening Technique: Screening digital mammography study of both breasts was performed with 2-D and 3-D tomosynthesis imaging. Study was compared to the prior exam dated 05/16/2023. Findings: There is no evidence of interval dominant spiculated mass, grouped microcalcifications, or skin thickening which would be suggestive of malignancy. ?? Scattered benign-appearing calcifications are noted bilaterally. Axillary lymph nodes are noted bilaterally and appear unremarkable. Procedure Note Jose R Cano MD - 09/29/2024 Examination: BI MAMMOGRAM SCREENING TOMOSYNTHESIS BILATERAL Clinical History: Breast cancer screening Technique: Screening digital mammography study of both breasts wasperformed with 2-D and 3-D tomosynthesis imaging. Study was compared tothe prior exam dated 05/16/2023. Findings: There is no evidence of interval dominant spiculated mass,grouped microcalcifications, or skin thickening which would be suggestiveof malignancy. Scattered benign-appearing calcifications are noted bilaterally. Axillarylymph nodes are noted bilaterally and appear unremarkable. IMPRESSION: Impression: No specific evidence of malignancy seen in either breast. BIRADS 2 - Benign Findings DENSITY: There are scattered areas of fibroglandular density. FOLLOW-UP: Routine Screening Mammogram ELECTRONICALLY SIGNED BY: Jose R Cano M.D. Authorizing ProviderResult TypeResult Sree Green PAIMG BI PROCEDURES Final Result * (ABNORMAL) Microalbumin / creatinine urine ratio (05/16/2023 8:07 AM EDT) ComponentValueRef RangeTest MethodAnalysis TimePerformed AtPathologist SignatureCREATININE, RANDOM MOZTN32417 - 275 mg/dLQUESTALBUMIN, URINE6.9See Note: mg/dLQUESTComment: Reference Range: Reference Range Not established ALBUMIN/CREATININE RATIO, RANDOM URINE63(H)<30 mcg/mg creatQUESTComment: The ADA defines abnormalities in albumin excretion as follows: Albuminuria Category ?Result (mcg/mg creatinine) Normal to Mildly increased <30 Moderately increased ? 30-299 Severely increased > OR = 300 The ADA recommends that at least two of three specimens collected within a 3-6 month period be abnormal before considering a patient to be within a diagnostic category. Specimen (Source)Anatomical Location / LateralityCollection Method / Volume Collection TimeReceived Time05/16/2023 8:07 AM EDT1 3:56 PM EDT Narrative [facility] - 05/17/2023 12:35 PM EDT FASTING:YES FASTING: YES Resulting Agency Comment Performing Organization Information ?Site ID: [id number] ?Name: [facility] ?Address: [address] [place] [address], [address] [place] [id number] ?Director: Cristi Kelly MD Authorizing ProviderResult TypeResult Sree Green PALAB URINE ORDERABLES Final ResultPerforming OrganizationAddressCity/State/ZIP CodePhone Number [facility] from Last 3 Months or Most Recently Relevant to Health Maintenance Additional Health Concerns Active ProblemsNoted DateDiagnosed DatePatient on antidepressant monitoring plan 12/11/2024 Insurance Care Teams Team MemberRelationshipSpecialtyStart DateEnd Date Jus Sprague DO [address] [place] [address] PCP - GeneralFamily Medicine11/22/22 Jesus Green PA [address] [place] [address] Physician AssistantFamily Medicine03/20/24 Guillermina Martínez DO [address] [place] [address] Pulmonary Disease03/20/24
--- OUTSIDE RECORDS SUMMARY | 2025-05-15 13:28 | XMS_ITS | Encounter Summary ---
Author Organization [facility] Address [address] [place] [address] Care Team Providers Care Sample Case Porter Name Role Phone Jus Sprague DO Primary Care Provider [phone] Bertrand Green Unavailable Guillermina Martínez DO Unavailable [phone] Reason for Visit * ReasonOnset ZdzbBauuaefcFqleblulhhs41/20/2025 Encounter Details DateTypeDepartmentCare Team (Latest Contact Info)Achcjrvhgwc58/20/2025Telephone [facility] [address] [facility] [address] [place] [address] Elena Damico RN Appointment Social History Tobacco UseTypesPacks/DayYears UsedDateSmoking Tobacco: NeverSmokeless [...] relatives?Once a week05/01/2023How often do you attend confucianism or buddhism services?Never05/01/2023o you belong to any clubs or organizations such as confucianism groups, unions, fraAver Informatics or athletic groups, or school groups?No05/01/2023How often do you attend meetings of the clubs or organizations you belong to?Never05/01/2023re you , , , , never , or living with a partner?Living with thuzops4105/01/2023 AUDIT-CAnswerDate RecordedQ1: How often do you have [...] now)?No05/01/2023CommentsUnknownSex and Gender InformationValueDate RecordedSex Assigned at NhvicZcfkix19/19/2023 2:19 PM EDT Legal NdpXntlfh52/15/2023 6:45 PM EDTGender XveqfpcvRmtytw43/19/2023 2:19 PM EDT Sexual OrientationNot on filedocumented as of this encounter Miscellaneous Notes * Telephone Encounter - Alayna Osorio - 05/05/2025 4:19 PM EDT Patient called right after making the request on her mychart and scheduled with someone else. No longer needed. * Telephone Encounter - Elena Damico RN - 05/05/2025 3:02 PM EDT With Provider: BERTRAND GREEN [[facility] 230] Preferred Date Range: Any date 05/06/2025 or later Preferred Times: Any Reason for Visit: Increased edema on lower right leg Comments: Right leg increased edema documented in this encounter Plan of Treatment DateTypeDepartmentCare Team (Latest Contact Info)Rfmpocwrrdy91/30/2025 2:15 PM ESTOffice Visit [facility] [address] [place] [address] Judith Garnett, DO [address] [place] [address] documented as of this encounter Goals GoalPatient Goal TypeAssociated ProblemsRecent ProgressPatient-Stated?Author Help patient manage antidepressant medication Care PlanPatient on antidepressant monitoring Bertrand Machado, PAdocumented as of this encounter Visit Diagnoses Not on filedocumented in this encounter Additional Health Concerns Active ProblemsNoted DateDiagnosed DatePatient on antidepressant monitoring plan 5AssessmentNoted TimePHQ-9 Depression Total Score: 10108/07/2023 1:26 PM ESTdocumented as of this encounter Care Teams Team MemberRelationshipSpecialtyStart DateEnd Date Jus Sprague DO [address] [facility] [address] [place] [address] PCP - GeneralFamily Medicine11/22/22 Bertrand Green, PA [address] [facility] [address] [place] [address] Physician AssistantFamily Medicine03/20/24 Guillermina Martínez DO [address] [place] [address] Pulmonary Disease03/20/24documented as of this encounter
--- OUTSIDE RECORDS SUMMARY | 2025-05-15 13:28 | XMS_ITS | Encounter Summary ---
Author Organization [facility] Address [address] [place] [address] Care Team Providers Care Linen Checker Name Role Phone Jus Sprague DO Primary Care Provider [phone] Jesus Green Unavailable Guillermina Martínez DO Unavailable [phone] Encounter Details DateTypeDepartmentCare Team (Latest Contact Info)Uwznkhgjtbk74/21/2025Results Follow-Up [facility] [address] [facility] [address] [place] [address] Jesus Green, CATHY [address] [facility] [address] [place] [address] Vascular US lower extremity venous duplex right Social History Tobacco UseTypesPacks/DayYears UsedDateSmoking Tobacco: NeverSmokeless [...] relatives?Once a week05/01/2023How often do you attend hoahaoism or gnosticist services?Never05/01/2023o you belong to any clubs or organizations such as hoahaoism groups, unions, fraTrinity Biosystems or athletic groups, or school groups?No05/01/2023How often do you attend meetings of the clubs or organizations you belong to?Never05/01/2023re you , , , , never , or living with a partner?Living with ejwanzx2405/01/2023 AUDIT-CAnswerDate RecordedQ1: How often do you have [...] steady place to sleep or slept in located [facility] (including now)?No05/01/2023CommentsUnknownSex and Gender InformationValueDate RecordedSex Assigned at ZlzchFxoqts84/19/2023 2:19 PM EDT Legal ZgyVlwazt20/15/2023 6:45 PM EDTGender PttudnucKxmaae93/19/2023 2:19 PM EDT Sexual OrientationNot on filedocumented as of this encounter Functional Status * Over the past 2 weeks, how often have you been bothered by any of the following problems?QuestionAnswerDate of AssessmentAuthorLittle interest or pleasure in doing thingsNot at all05/06/2025 11:17 AM Bela Padilla MA Feeling down, depressed, or hopelessNot at all05/06/2025 11:17 AM Bela Padilla MAPatient Health Questionnaire-2 Kseyy612 11:17 AM EDT Bela Sanabria MA documented as of this encounter Plan of Treatment DateTypeDepartmentCare Team (Latest Contact Info)Wmdkcstvesz08/30/2025 2:15 PM ESTOffice Visit [facility] [address] [place] [address] Judith Garnett DO [address] [place] [address] documented as of this encounter Goals GoalPatient [...] DateEnd Date Jus Sprague DO [address] [facility] [address] [place] [address] PCP - GeneralFamily Medicine11/22/22 Jesus Grene, PA [address] [facility] [address] [place] [address] Physician AssistantFamily Medicine03/20/24 Guillermina Martínez DO [address] [place] [address] Pulmonary Disease03/20/24documented as of this encounter
--- OUTSIDE RECORDS SUMMARY | 2025-05-15 13:28 | XMS_ITS | Encounter Summary ---
Author Organization [facility] Address [address] [place] [address] Care Team Providers Care Museum Exhibit Designer Name Role Phone Jus Sprague DO Primary Care Provider [phone] Jesus Green Unavailable Guillermina Martínez DO Unavailable [phone] Encounter Details DateTypeDepartmentCare Team (Latest Contact Info)Rjjojhwqzfd18/21/2025Orders Only [facility] [address] [facility] [address] [place] [address] Jesus Green, CATHY [address] [facility] [address] [place] [address] Cellulitis of right lower extremity (Primary Dx) Social History Tobacco UseTypesPacks/DayYears UsedDateSmoking [...] relatives?Once a week05/01/2023How often do you attend baptist or adventist services?Never05/01/2023o you belong to any clubs or organizations such as baptist groups, unions, fraWedding Reality or athletic groups, or school groups?No05/01/2023How often do you attend meetings of the clubs or organizations you belong to?Never05/01/2023re you , , , , never , or living with a partner?Living with dlxqnoa0005/01/2023 AUDIT-CAnswerDate RecordedQ1: How often do you have [...] steady place [facility] sleep [facility])?No05/01/2023CommentsUnknownSex and Gender InformationValueDate RecordedSex Assigned at YrqgbNyvpig06/19/2023 2:19 PM EDT Legal JruOeebtf34/15/2023 6:45 PM EDTGender MpcqwabcQxpnpx58/19/2023 2:19 PM EDT Sexual OrientationNot on filedocumented as of this encounter Functional Status * Over the past 2 weeks, how often have you been bothered by any of the following problems?QuestionAnswerDate of AssessmentAuthorLittle interest or pleasure in doing thingsNot at all05/06/2025 11:17 AM Bela Padilla MA Feeling down, depressed, or hopelessNot at all05/06/2025 11:17 AM Bela Padilla MAPatient Health Questionnaire-2 Imgxk065 11:17 AM EDT Bela Sanabria MA documented as of this encounter Progress Notes * CATHY Almaguer - 05/06/2025 4:34 PM EDT Rx sent. documented in this encounter Plan of Treatment DateTypeDepartmentCare Team (Latest Contact Info)Hjpgpljcbre52/30/2025 2:15 PM ESTOffice Visit [facility] [address] [place] [address] Judith Garnett DO [address] [place] [address] documented as of this encounter Goals GoalPatient Goal TypeAssociated ProblemsRecent ProgressPatient-Stated?Author Help patient manage antidepressant medication Care PlanPatient on antidepressant monitoring planJesus Worthington, PAdocumented as of this encounter Visit Diagnoses Diagnosis Cellulitis of right lower extremity- Primary documented in this encounter Additional Health Concerns Active ProblemsNoted DateDiagnosed DatePatient on antidepressant monitoring plan 5AssessmentNoted TimePHQ-9 Depression Total Score: 1:26 PM ESTdocumented as of this encounter Care Teams Team MemberRelationshipSpecialtyStart DateEnd Date Jus Sprague DO [address] [place] [address] PCP - GeneralFamily Medicine11/22/22 Jesus Green, PA [address] [place] [address] Physician AssistantFamily Medicine03/20/24 Guillermina Martínez DO [address] [place] [address] Pulmonary Disease03/20/24documented as of this encounter
--- OUTSIDE RECORDS SUMMARY | 2025-05-15 13:28 | XMS_ITS | Clinical Summary ---
Author Organization [facility] Address [address] [place] [address] Phone Care Team Providers Care Consulting Nurse Name Role Phone Jesus Green Primary Care Provider [phone] Allergies Active AllergyReactionsCriticalityNoted UhovJysqiurhTkwyuzicqnwWgkpt37/02/2024 PenicillinsHives,Unknown,BrusIwdt89/05/2023 Medications MedicationSigDispense QuantityRefillsLast FilledStart DateEnd DateStatus carvedilol (Coreg) 25 mg tablet Take 1 tablet (25 mg) by mouth 2 times a day.04/03/2024ctive acetaminophen (Tylenol) 500 mg tablet Take 1 tablet (500 mg) by mouth.Active EPINEPHrine 0.3 mg/0.3 mL injection syringe Inject 0.3 mL (0.3 mg) as directed.02/12/2024ctive LORazepam (Ativan) 1 mg tablet Take 1 tablet (1 mg) by mouth every 6 hours if needed.02/06/2024ctive gabapentin (Neurontin) 300 mg capsule Take 1 capsule (300 mg) by mouth 3 times a day.01/03/2024ctive meclizine (Antivert) 25 mg tablet Take 2 tablets (50 mg) by mouth 2 times a day as needed.03/13/2024ctive ondansetron (Zofran) 8 mg tablet Take 1 tablet (8 mg) by mouth every 8 hours if needed.01/22/2024ctive cetirizine (ZyrTEC) 10 mg tablet Take 1 tablet (10 mg) by mouth once daily.02/12/2024ctive Mounjaro 5 mg/0.5 mL pen injector Inject 5 mg under the skin 1 (one) time per week.08/17/2023ctive metFORMIN (Glucophage) 500 mg tablet Take 2 tablets (1,000 mg) by mouth twice a day.10/06/2023ctive hydrALAZINE (Apresoline) 25 mg tablet Take 1 tablet (25 mg) by mouth 2 times a day.04/03/2024ctive rOPINIRole (Requip) 3 mg tablet Take 1 tablet (3 mg) by mouth 3 times a day.07/20/2023ctive albuterol 90 mcg/actuation inhaler Inhale 2 puffs every 4 hours if needed.09/04/2023ctive xitiifwutcm-zvwwzqivv-agphmois (Trelegy Ellipta) 100-62.5-25 mcg blister with device Inhale 1 puff once daily.03/20/2024ctive insulin glargine (Lantus Solostar U-100 Insulin) 100 unit/mL (3 mL) pen INJECT UNDER THE SKIN 13 UNITS TWO TIMES A DAY EDYDCHLK15/06/2023ctive insulin lispro (HumaLOG) 100 unit/mL injection 1:5 breakast/dinner, 1:8 lunch (max daily 50 units)08/11/2023ctive montelukast (Singulair) 10 mg tablet Take 1 tablet (10 mg) by mouth.07/20/2023ctive fluticasone (Flonase) 50 mcg/actuation nasal spray 04/09/2024ctive omeprazole (PriLOSEC) [address] capsule Take 1 capsule (20 mg) by mouth.07/20/2023ctive zolpidem (Ambien) 10 mg tablet 03/25/2024ctive sertraline (Zoloft) 100 mg tablet Take 1 tablet (100 mg) by mouth once daily.10/27/2023ctive cyclobenzaprine (Flexeril) 10 mg tablet Take 1 tablet (10 mg) by mouth 3 times a day as needed.04/09/2024ctive potassium gluconate 550 mg (90 mg) tablet Take 1 tablet by mouth once daily.06/10/2024ctive furosemide (Lasix) 40 mg tablet Indications:Shortness of breath,Generalized edemaTake 1 tablet (40 mg) by mouth 2 times daily (morning and late afternoon). 180 tablet ctive spironolactone (Aldactone) 25 mg tablet Indications:Shortness of breath,Generalized edemaTake 1 tablet (25 mg) by mouth once daily. 90 tablet 5009/03/2025ctive Active Problems ProblemNoted DateDiagnosed DateSleep apnea09/03/2024MI 40.0-44.9, adult 09/03/20240264Krdlhvtk83/02/2024Essential twbwxgryynek53/02/2024KD (chronic kidney disease)04/17/2024OPD (chronic obstructive pulmonary disease)04/17/2024 Shortness of zndvhb5304/17/20243975Nkgpe57/02/2024 Resolved Problems ProblemNoted DateDiagnosed DateResolved DateBMI 38.0-38.9,adult04/17/2024 09/03/2024 Family History Medical HistoryRelationNameCommentsNo Known ProblemsBrotherDiabetes type IFather LeukemiaMotherSeizuresMotherstomach issuesSisterRelationNameStatusComments BrotherFatherMotherDeceasedSister Social History Tobacco UseTypesPacks/DayYears UsedDateSmoking Tobacco: NeverSmokeless Tobacco: NeverAlcohol UseStandard Drinks/WeekCommentsNot Currently0 (1 standard drink = 0.6 oz pure alcohol)CommentsUnknownSex and Gender InformationValueDate RecordedSex Assigned at BirthNot on fileLegal TqjBvfmfc75/25/2024 9:25 AM EDT Gender IdentityNot on fileSexual OrientationNot on file Last Filed Vital Signs Vital SignReadingTime TakenCommentsBlood Yhnkeplu220/6990509/03/2024 3:22 PM EST Ujhht602409/03/2024 3:22 PM ESTTemperature--Respiratory Rate--Oxygen Saturation-- Inhaled Oxygen Concentration--Rqpugj925 kg (263 lb 12.8 oz)09/03/2024 3:22 PM ZTAGsptfk172.2 cm (5' 7 )09/03/2024 3:22 PM ESTBody Mass Index41.32009/03/2024 3:22 PM EST Plan of Treatment Health MaintenanceDue DateLast DoneCommentsCT Tqmtmaqauomz37/11/1970Colonoscopy 1969Colorectal Cancer Mgfjojwjs97/11/1970Diabetes: Hemoglobin A1C 1969FIT-DNA (Cologuard)1969FIT1969HIV Nuvfrabgl86/11/1970 Medicare Annual Wellness Visit (AWV)1969 9229Prmsyxrjcdcbd37/11/1970MMR Vaccines (1 of 1 - Standard series)1970Diabetes: Retinopathy Screening 09/25/1979Hepatitis C Zyalixknh19/11/1988Hepatitis B Vaccines (1 of 3 - 19+ 3- dose series)1988Pneumococcal Vaccine (1 of 2 - PCV)1988Cervical Cancer Iypnrzdyc54/11/1991HPV/Pvnhhy9009/24/1990Pap Smear1990Zoster Vaccines (1 of 2)09/25/2019Diabetes: Urine Protein Kqfhnmuof70Influenza Vaccine (#1)2025Lipid Panel/OVID-19 Vaccine (3 - season)2021, 12/25/20203270Mnvljebhp04/14/185886/, 09/27/2024, 05/16/2023, Additional history existsDTaP/Tdap/Td Vaccines (2 - Td or Tdap)HIB VaccinesAged OutNo longer eligible based on patient's age to complete this topicHPV VaccinesAged OutNo longer eligible based on patient's age to complete this topicHepatitis A VaccinesAged OutNo longer eligible based on patient's age to complete this topicIPV VaccinesAged OutNo longer eligible based on patient's age to complete this topicMeningococcal VaccineAged OutNo longer eligible based on patient's age to complete this topic Rotavirus VaccinesAged OutNo longer eligible based on patient's age to complete this topic Insurance Care Teams Team MemberRelationshipSpecialtyStart DateEnd Jesus Green PA [address] [address] PCP - GeneralFamily Btrvdrpj66/2/24
--- OUTSIDE RECORDS SUMMARY | 2025-05-15 13:28 | XMS_ITS | Encounter Summary ---
Author Organization [facility] Address [address] [place] [address] Care Team Providers Care Ct Scan Tech Name Role Phone Jus Sprague DO Primary Care Provider [phone] Jesus Green Unavailable Guillermina Martínez DO Unavailable [phone] Encounter Details DateTypeDepartmentCare Team (Latest Contact Info)Lsoinmxdvpy42/17/2025Telephone [facility] [address] [place] [address] Sarmad Martins, DPM FACFAS [address] [place] [address] Social History Tobacco UseTypesPacks/DayYears UsedDateSmoking Tobacco: NeverSmokeless [...] relatives?Once a week05/01/2023How often do you attend roman catholic or yarsani services?Never05/01/2023o you belong to any clubs or organizations such as roman catholic groups, unions, [employer] or athletic groups, or school groups?No05/01/2023How often do you attend meetings of the clubs or organizations you belong to?Never05/01/2023re you , , , , never , or living with a partner?Living with ohlqank6305/01/2023 AUDIT-CAnswerDate RecordedQ1: How often do you have [...] now)?No05/01/2023CommentsUnknownSex and Gender InformationValueDate RecordedSex Assigned at GckinGlmicp11/19/2023 2:19 PM EDT Legal TbwXhskuq16/15/2023 6:45 PM EDTGender SkqdsqaeYmhcyp77/19/2023 2:19 PM EDT Sexual OrientationNot on filedocumented as of this encounter Miscellaneous Notes * Telephone Encounter - Jessica Willis - 05/05/2025 8:26 AM EDT Let them know thank you * Telephone Encounter - ELISABET Palma - 05/04/2025 1:16 PM EDT Its fine as is * Telephone Encounter - Jessica Willis - 05/02/2025 9:03 AM EDT [facility] called asking if you still want them to send over the foot XR that they took because she didn't make them non weight bearing it is just a regular foot XR. They tried to have her come back in but patient never showed. documented in this encounter Plan of Treatment DateTypeDepartmentCare Team (Latest Contact Info)Yeimmuydvds74/ 2:15 PM ESTOffice Visit [facility] [address] [place] [address] Judith Garnett, [address] [place] [address] documented as of this encounter Goals GoalPatient [...] DateEnd Date Jus Sprague DO [address] [place] [address] PCP - GeneralFamily Medicine11/22/22 Jesus Green, PA [address] [place] [address] Physician AssistantFamily Medicine03/20/24 Guillermina Martínez DO [address] [place] [address] Pulmonary Disease03/20/24documented as of this encounter
--- OUTSIDE RECORDS SUMMARY | 2025-05-15 13:28 | XMS_ITS | Encounter Summary ---
Author Organization [facility] Address [address] [place] [address] Care Team Providers Care Pump Oiler Name Role Phone Jus Sprague DO Primary Care Provider [phone] Jesus Green Unavailable Guillermina Martínez DO Unavailable [phone] Encounter Details DateTypeDepartmentCare Team (Latest Contact Info)Rtbvvfjikgj89/21/2025Travel Social History Tobacco UseTypesPacks/DayYears UsedDateSmoking Tobacco: NeverSmokeless [...] relatives?Once a week05/01/2023How often do you attend zoroastrianism or nondenominational services?Never05/01/2023o you belong to any clubs or organizations such as zoroastrianism groups, unions, fraternal or athletic groups, or school groups?No05/01/2023How often do you attend meetings of the clubs or organizations you belong to?Never05/01/2023re you , , , , never , or living with a partner?Living with vuwjprd3405/01/2023 AUDIT-CAnswerDate RecordedQ1: How often do you have [...] to sleep or slept in ashelter (including now)?No3CommentsUnknownSex and Gender InformationValueDate RecordedSex Assigned at JsldyBywxqo30/19/2023 2:19 PM EDT Legal XkmCoqtci90/15/2023 6:45 PM EDTGender EltzcibeWeidyb84/19/2023 2:19 PM EDT Sexual OrientationNot on filedocumented as of this encounter Functional Status * Over the past 2 weeks, how often have you been bothered by any of the following problems?QuestionAnswerDate of AssessmentAuthorLittle interest or pleasure in doing thingsNot at all05/06/2025 11:17 AM Bela Padilla MA Feeling down, depressed, or hopelessNot at all05/06/2025 11:17 AM Bela Padilla MAPatient Health Questionnaire-2 Muikv889 11:17 AM EDT Bela Sanabria MA documented as of this encounter Plan of Treatment DateTypeDepartmentCare Team (Latest Contact Info)Rmaltapcnjs18/30/2025 2:15 PM ESTOffice Visit [facility] [address] [place] [address] Judith Garnett, DO [address] [place] [address] documented as of this encounter Goals GoalPatient Goal TypeAssociated ProblemsRecent ProgressPatient-Stated?Author Help patient manage antidepressant medication Care PlanPatient on antidepressant monitoring Jesus Machado, PAdocumented as of this encounter Visit Diagnoses Not on filedocumented in this encounter Additional Health Concerns Active ProblemsNoted DateDiagnosed DatePatient on antidepressant monitoring plan 5AssessmentNoted TimePHQ-9 Depression Total Score: 10108/07/2023 1:26 PM ESTdocumented as of this encounter Care Teams Team MemberRelationshipSpecialtyStfillmore DateEnd Date Jus Sprague DO [address] [place] [address] PCP - GeneralFamily Medicine11/22/22 Jesus Green PA [address] [place] [address] Physician AssistantFamily Medicine03/20/24 Guillermina Martínez DO [address] [place] [address] Pulmonary Disease03/20/24documented as of this encounter
== END 2025-05-15 13:25 | disposition home or self-care (01) ==
LOC: WC 13:25
PROVIDERS: PCP Physician Assistant; Visit Provider Physician Assistant
DX: E11.621 Type 2 diabetes mellitus with foot ulcer (principal); L97.412 Non-pressure chronic ulcer of right heel and midfoot with fat layer exposed
CPT/HCPCS: 11043; 29445; A6213; G0463

== ENCOUNTER 2025-05-20 15:05 | Outpatient (OUT) | payer MEDICARE, SELFPAY ==
--- OUTSIDE RECORDS SUMMARY | 2024-09-03 10:30 | XMS_ITS ---
Author Organization [facility] Servic es Address [address] [facility] [place] [address] Care Team Providers Care Data Entry Specialist Name Role Phone MISS Isabel Johansen Primary Care Provider [phone] REASON FOR VISIT BH F/U Encounters Encounter Location Date Provider Diagnosis [facility] [address] [facility] [place] [address] 09/03/2024 Isabel Johansen Plan Of Treatment No Information Progress Notes * CLEVELAND HOLMANADOB: 0 (54 yo F)Acc No.[id number]:09/03/2024 BH F/U - Patient Patient: Mary VALENTINE ADI :?RASHEED Simons LISW-SDOB:1970 ???Age:53 Y???Sex:FemaleDate:09/03/2024Phone:[phone]:[address] [place] [address] Subjective: * Chief Complaints: * B H F/U Care Plan Details* * Electronic signature of Isabel NELIDA Johansen on 05/20/2025 at 03:09 PM EST Sign off status: Pending * Provider: RASHEED Presley LISW-Rivka Date: 0 09/03/2024 Generated for Printing/Faxing/eTransmitting on:?05/20/2025 03:09 PM EST
--- OUTSIDE RECORDS SUMMARY | 2024-09-16 05:00 | XMS_ITS ---
Author Organization [facility] Servic es Address [address] [facility] [place] [address] Care Team Providers Care Group Home Manager Name Role Phone MISS Isabel Johansen Primary Care Provider [phone] REASON FOR VISIT BH F/U Encounters Encounter Location Date Provider Diagnosis [facility] [address] [facility] [place] [address] 09/16/2024 Isabel Johansen Plan Of Treatment No Information Progress Notes * CLEVELAND HOLMANADOB: 0 (54 yo F)Acc No.[id number]:09/16/2024 BH F/U - Patient Patient: Mary VALENTINE ADI :?RASHEED Simons, NELIDA-SDOB:1970 ???Age:53 Y???Sex:FemaleDate:09/16/2024Phone:[phone]:[address] [place] [place] [phone] Subjective: * Chief Complaints: * B H F/U Billing Information: * Procedure Codes: Care Plan Details* * Electronic signature of Isabel NELIDA Johansen on 05/20/2025 at 03:09 PM EST Sign off status: Pending * Provider: RASHEED Presley LISW-Rivka Date: 0 09/16/2024 Generated for Printing/Faxing/eTransmitting on:?05/20/2025 03:09 PM EST
--- OUTSIDE RECORDS SUMMARY | 2024-11-04 10:00 | XMS_ITS ---
Author Organization [facility] Servic es Address [address] [facility] [place] [address] Care Team Providers Care Tankman Name Role Phone MISS Isabel Johansen Primary Care Provider REASON FOR VISIT BH F/U Encounters Encounter Location Date Provider Diagnosis [facility] Services [address] [facility] [place] [address] 11/04/2024 Isabel Johansen Plan Of Treatment No Information Progress Notes * CLEVELAND HOLMANADOB: 0 (54 yo F)Acc No.[id number]:11/04/2024 BH F/U - Patient Patient: Mary VALENTINE ADI :?RASHEED Simons, NELIDA-SDOB:1970 ???Age:54 Y???Sex:FemaleDate:11/04/2024Phone:[phone]:[address] [place] [phone] Subjective: * Chief Complaints: * B H F/U Billing Information: * Procedure Codes: Care Plan Details* * Electronic signature of Isabel NELIDA Johansen on 05/20/2025 at 03:09 PM EST Sign off status: Pending * Provider: RASHEED Presley LISW-Rivka Date: 0 11/04/2024 Generated for Printing/Faxing/eTransmitting on:?05/20/2025 03:09 PM EST
--- OUTSIDE RECORDS SUMMARY | 2024-12-05 11:00 | XMS_ITS ---
Author Organization [facility] Servic es Address [address] [facility] [facility] [place] [address] Care Team Providers Care Warehouse Attendant Name Role Phone MISS Isabel Johansen Primary Care Provider [phone] REASON FOR VISIT BH F/U Encounters Encounter Location Date Provider Diagnosis [facility] Services [address] [facility] [place] [address] 12/05/2024 Isabel Johansen Plan Of Treatment No Information Progress Notes * CLEVELAND HOLMANADOB: 0 (54 yo F)Acc No.[id number]:12/05/2024 BH F/U - Patient Patient: Mary VALENTINE ADI :?RASHEED Simons, NELIDA-SDOB:1970 ???Age:54 Y???Sex:FemaleDate:12/05/2024Phone:[phone]:[address] [place] [phone] Subjective: * Chief Complaints: * B H F/U Billing Information: * Procedure Codes: Care Plan Details* * Electronic signature of Isabel NELIDA Johansen on 05/20/2025 at 03:10 PM EST Sign off status: Pending * Provider: RASHEED Presley LISW-Rivka Date: 0 12/05/2024 Generated for Printing/Faxing/eTransmitting on:?05/20/2025 03:10 PM EST
--- OUTSIDE RECORDS SUMMARY | 2025-05-06 10:00 | XMS_ITS | Encounter Summary ---
Author Organization [facility] Address [address] [place] [address] Care Team Providers Care Manager Contracting Name Role Phone Jus Sprague DO Primary Care Provider [phone] Jesus Green Unavailable Guillermina Martínez DO Unavailable [phone] Reason for Referral * Imaging (Routine) - ClosedSpecialtyDiagnoses / ProceduresReferred By Contact Referred To ContactRadiology Diagnoses Pain and swelling of left lower leg Procedures Vascular US lower extremity venous duplex right Jesus Green PA [address] [place] [address] Phone: tel: [facility]: [facility] [address] [place] [address] Phone: tel: fax: Referral IDStatusReasonStart DateExpiration DateVisits RequestedVisits [id number]/21/20254/ Reason for Visit * ReasonCommentsLeg Pain Encounter Details DateTypeDepartmentCare Team (Latest Contact Info)Khyyctewsgj79/21/2025 11:00 AM EDTOffice Visit [facility] [address] [place] [address] Jesus Green PA [address] [place] [address] Type 2 diabetes mellitus with Charcot joint arthropathy (HCC) (Primary Dx); Psychophysiological insomnia; Sciatica of left side; Primary hypertension; Gastroesophageal reflux disease without esophagitis; Gait instability; 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); Pain and swelling of right lower extremity Social History Tobacco UseTypesPacks/DayYears UsedDateSmoking Tobacco: NeverSmokeless Tobacco: NeverAlcohol UseStandard Drinks/WeekCommentsNever0 (1 standard drink = 0.6 oz pure alcohol)caffeine intake : noneHumiliation, Afraid, Rape, and Kick questionnaireAnswerDate RecordedWithin the last year, have you been afraid of your partner or ex-partner?No05/01/2023Within the last year, have you been humiliated or emotionally abused in other ways by your partner or ex-partner?No 05/01/2023Within the last year, have you been kicked, hit, slapped, or otherwise physically hurt by your partner or ex-partner?No05/01/2023Within the last year, have you been raped or forced to have any kind of sexual activity by your part ner or ex-partner?No05/01/2023Social Connection and Isolation PanelAnswerDate RecordedIn a typical week, how many times do you talk on the phone with family, friends, or neighbors?More than three times a week05/01/2023How often do you get together with friends or relatives?Once a week05/01/2023How often do you attend buddhism or jewish services?Never3Do you belong to any clubs or organizations such as buddhism groups, unions, fraternal or athletic groups, or school groups?No05/01/2023How often do you attend meetings of the clubs or organizations you belong to?Never05/01/2023re you , , , , never , or living with a partner?Living with hjlluxp8505/01/2023 AUDIT-CAnswerDate RecordedQ1: How often do you have a drink containing alcohol? Never05/01/2023Q2: How many drinks containing alcohol do you have on a typical day when you are drinking?Patient does not drink05/01/2023Q3: How often do you have six or more drinks on one occasion?Never05/01/2023Overall Financial Resource Strain (CARDIA)AnswerDate RecordedHow hard is it for you to pay for the very basics like food, housing, medical care, and heating?Somewhat hard 05/01/2023HQ-2AnswerDate RecordedPatient Health Questionnaire-2 Score0 05/06/2025Exercise Vital SignAnswerDate RecordedOn average, how many days per week do you engage in moderate to strenuous exercise (like a brisk walk)?2 days 05/01/2023On average, how many minutes do you engage in exercise at this level? 30 min05/01/2023Hunger Vital SignAnswerDate RecordedWithin the past 12 months, you worried that your food would run out before you got the money to buymore. Sometimes true05/01/2023Within the past 12 months, the food you bought just didn't last and you didn't have money to get more.Sometimes true05/01/2023 PRAPARE - TransportationAnswerDate RecordedIn the past 12 months, has lack of transportation kept you from medical appointments or from getting medications?No 05/01/2023In the past 12 months, has lack of transportation kept you from meetings, work, or from getting things needed for daily living?No05/01/2023 Housing Stability Vital SignAnswerDate RecordedIn the last 12 months, was there a time when you were not able to pay the mortgage or rent on time?No05/01/2023In the last 12 months, how many places have you lived?In the last 12 months, was there a time when you did not have a steady place to sleep or slept in [place] (including now)?No05/01/2023CommentsUnknownSex and Gender InformationValueDate RecordedSex Assigned at TpyhtDoypmy89/19/2023 2:19 PM EDT Legal UbeCctqer24/15/2023 6:45 PM EDTGender YbozrrixWldoma88/19/2023 2:19 PM EDT Sexual OrientationNot on filedocumented as of this encounter Last Filed Vital Signs Vital SignReadingTime TakenCommentsBlood Wgffqjil602/8805/06/2025 11:12 AM EDT Ozdfw451905/06/2025 11:12 AM VPJQutihhasspv84.5 ??C (95.9 ??F)05/06/2025 11:12 AM EDTRespiratory Rate--Oxygen Rognzdryuf55%05/06/2025 11:12 AM EDTInhaled Oxygen Concentration--Tdhqkc079 kg (226 lb 12.8 oz)05/06/2025 11:12 AM WZSUlunjv772.2 cm (5' 7 )05/06/2025 11:12 AM EDTBody Mass Index35.5205/06/2025 11:12 AM EDT documented in this encounter Functional Status * Over the past 2 weeks, how often have you been bothered by any of the following problems?QuestionAnswerDate of AssessmentAuthorLittle interest or pleasure in doing thingsNot at all05/06/2025 11:17 AM Bela Padilla MA Feeling down, depressed, or hopelessNot at all05/06/2025 11:17 AM Bela Padilla MAPatient Health Questionnaire-2 Esxaz625 11:17 AM EDT Bela Sanabria MA documented as of this encounter Progress Notes * CATHY Almaguer - 05/06/2025 11:00 AM EDT Images from the original note were not included. Subjective Nurse Notes: Sigrid Archer is a 54 y.o. year old female patient with complaints of 1 month. Pt c/o right leg darden pain, redness, and swelling. Patient states the pain started 3 days ago and the redness and warm to touch started 2 days ago. Leg Pain There was no injury mechanism. The pain is present in the right leg. The quality of the pain is described as burning and stabbing. The pain is mild. The pain has been Constant since onset. Pertinent negatives include no loss of motion, loss of sensation, numbness or tingling. She reports no foreignbodies present. She has tried nothing for the symptoms. Review of Systems Constitutional: Negative for chills and fever. Respiratory: Negative for shortness of breath. Cardiovascular: Negative for chest pain. Gastrointestinal: Negative for diarrhea, nausea and vomiting. Musculoskeletal: Negative for myalgias. Skin: Negative for rash. Neurological: Negative for tingling and numbness. All other systems reviewed and are negative. Objective Visit Vitals BP 162/88 Pulse 78 Temp 95.9 ??F Ht 5' 7 Wt 226 lb 12.8 oz SpO2 98% BMI 35.52 kg/m?? Smoking Status Never BSA 2.21 m?? Physical Exam Constitutional: General: She is not in acute distress. Appearance: Normal appearance. HENT: Head: Normocephalic and atraumatic. Mouth/Throat: Mouth: Mucous membranes are moist. Eyes: Extraocular Movements: Extraocular movements intact. Cardiovascular: Rate and Rhythm: Normal rate and regular rhythm. Pulses: Normal pulses. Heart sounds: No murmur heard. No friction rub. No gallop. Pulmonary: Effort: No respiratory distress. Breath sounds: Normal breath sounds. No wheezing, rhonchi or rales. Musculoskeletal: Right lower leg: No edema. Left lower leg: No edema. Skin: General: Skin is warm and dry. Findings: No rash. Neurological: General: No focal deficit present. Mental Status: She is alert and oriented to person, place, and time. Psychiatric: Mood and Affect: Mood normal. Behavior: Behavior normal. Judgment: Judgment normal. Assessment/Plan Diagnoses and all orders for this visit: Type 2 diabetes mellitus with Charcot joint arthropathy (HCC) Psychophysiological insomnia - zolpidem (Ambien) 10 MG tablet; Take 1 tablet (10 mg) by mouth as needed at bedtime for sleep - LORazepam (Ativan) 1 MG tablet; Take 1 tablet (1 mg) by mouth every 6 (six) hours if needed for anxiety Sciatica of left side - cyclobenzaprine (Flexeril) 10 MG tablet; Take 1 tablet (10 mg) by mouth 3 (three) times a day as needed for muscle spasms Primary hypertension - hydrALAZINE (Apresoline) 25 MG tablet; Take 1 tablet (25 mg) by mouth in the morning and 1 tablet(25 mg) before bedtime. Gastroesophageal reflux disease without esophagitis - omeprazole (PriLOSEC) [address] capsule; Take 1 capsule (20 mg) by mouth in the morning. Take before meals. Do not crush or chew.Take 1 capsule (20 mg) by mouth in the morning. Take before meals. Donot crush or chew. 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 The symptoms and signs of infection include but are not limited to increased pain, swelling, redness, drainage from the surgical site, nausea, vomiting, fevers, chills. The signs and symptoms of a deep vein thrombosis include but are not limited to increased swelling of the calf, pain, warmth. The signs and symptoms of a pulmonary embolism include chest pain and shortness of breath. If the patient encounters any of these signs or symptoms, they were instructed to call the office and proceed to the emergency room for assessment. If US is negative, we will treat with abx for cellulitis; if positive, we will start eliquis. All questions answered. Call the office with any other questions or concerns. *I have reviewed and reconciled the history and medication list with the patient today documented in this encounter Plan of Treatment DateTypeDepartmentCare Team (Latest Contact Info)Xmqbbrvujvd00/30/2025 2:15 PM ESTOffice Visit [facility] [address] [place] [phone] Judith Garnett, [address] [place] [address] documented as of this encounter Goals GoalPatient Goal TypeAssociated ProblemsRecent ProgressPatient-Stated?Author Help patient manage antidepressant medication Care PlanPatient on antidepressant monitoring Jesus Machado, PAdocumented as of this encounter Results * Vascular US lower extremity venous duplex right (05/06/2025 12:01 PM EDT) Anatomical RegionLateralityModalityLower ExtremitiesUltrasoundSpecimen (Source)Anatomical Location / LateralityCollection Method / VolumeCollection TimeReceived Time05/06/2025 3:24 PM EDT Impressions 05/06/2025 3:33 PM EDT NO RIGHT LOWER EXTREMITY DVT IDENTIFIED. ELECTRONICALLY SIGNED BY: Alcides Lincoln MD Narrative 05/06/2025 3:33 PM EDT EXAM: [facility] US LOWER EXTREMITY VENOUS DUPLEX RIGHT DATE:05/06/2025 11:36 AM CLINICAL HISTORY: right lower extremity swelling and redness. History of greater saphenous vein ablation. COMPARISON: ??None available. TECHNIQUE: Grayscale, compression, color and waveform Doppler analysis of the right lower extremityvenous systems was performed with augmentation. Spectral Doppler waveforms were evaluated for spontaneity, phasicity and appropriate augmentation. FINDINGS: Mildly echogenic occlusive thrombus is noted within the visualized right greater saphenous vein is consistent with previous ablation without extension to the saphenofemoral junction. There is no deep venous thrombosis, abnormal masses, organized fluid collections, or other findingsof concern identified within the right lower extremity. Moderately enlarged probably reactive rightinguinal lymph node is noted. Procedure Note Alcides Lincoln MD - 05/06/2025 EXAM: [facility] US LOWER EXTREMITY VENOUS DUPLEX RIGHT DATE:05/06/2025 11:36 AM CLINICAL HISTORY: right lower extremity swelling and redness. History ofgreater saphenous vein ablation. COMPARISON: None available. TECHNIQUE: Grayscale, compression, color and waveform Doppler analysis ofthe right lower extremity venous systems was performed withaugmentation. Spectral Doppler waveforms were evaluated for spontaneity, phasicity and appropriate augmentation. FINDINGS: Mildly echogenic occlusive thrombus is noted within the visualized rightgreater saphenous vein is consistent with previous ablation withoutextension to the saphenofemoral junction. There is no deep venous thrombosis, abnormal masses, organized fluidcollections, or other findings of concern identified within the rightlower extremity. Moderately enlarged probably reactive right inguinallymph node is noted. IMPRESSION: NO RIGHT LOWER EXTREMITY DVT IDENTIFIED. 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) Pain and swelling of right lower extremity Pain and swelling of left lower leg documented in this encounter Additional Health Concerns Active ProblemsNoted DateDiagnosed DatePatient on antidepressant monitoring plan 5AssessmentNoted TimePHQ-9 Depression Total Score: 10108/07/2023 1:26 PM ESTdocumented as of this encounter Care Teams Team MemberRelationshipSpecialtyStart DateEnd Date Jus Sprague DO [address] [place] [address] PCP - GeneralFamily Medicine11/22/22 Jesus Green PA [address] [place] [address] Physician AssistantFamily Medicine03/20/24 Guillermina Martínez DO [address] [place] [address] Pulmonary Disease03/20/24documented as of this encounter
--- OUTSIDE RECORDS SUMMARY | 2025-05-06 10:30 | XMS_ITS | Encounter Summary ---
Author Organization [facility] Address [address] [place] [address] Care Team Providers Care Enhanced Environmental Operator Name Role Phone Jus Sprague DO Primary Care Provider [phone] Jesus Green Unavailable Guillermina Martínez DO Unavailable [phone] Reason for Visit * Imaging (Routine) - ClosedSpecialtyDiagnoses / ProceduresReferred By Contact Referred To ContactRadiology Diagnoses Pain and swelling of left lower leg Procedures Vascular US lower extremity venous duplex right Jesus Green, CATHY [address] [place] [address] Phone: tel: fax: [facility] [address] [place] [address] Phone: tel: fax: Referral IDStatusReasonStart DateExpiration DateVisits RequestedVisits [id number]/21/20254/ Encounter Details DateTypeDepartmentCare Team (Latest Contact Info)Mdotxwafzgc73/21/2025 11:30 AM EDTAncillary Procedure [facility] [address] [place] [address] Pain and swelling of left lower leg Social History Tobacco UseTypesPacks/DayYears UsedDateSmoking Tobacco: NeverSmokeless [...] relatives?Once a week05/01/2023How often do you attend orthodoxy or mu-ism services?Never05/01/2023o you belong to any clubs or organizations such as orthodoxy groups, unions, fraternal or athletic groups, or school groups?No05/01/2023How often do you attend meetings of the clubs or organizations you belong to?Never05/01/2023re you , , , , never , or living with a partner?Living with kcizpaj2105/01/2023 AUDIT-CAnswerDate RecordedQ1: How often do you have [...] steady place to sleep or slept in [facility] (including now)?No05/01/2023CommentsUnknownSex and Gender InformationValueDate RecordedSex Assigned at KodanHuprma65/19/2023 2:19 PM EDT Legal IwuCiqnlj18/15/2023 6:45 PM EDTGender EqcytscdUduzth72/19/2023 2:19 PM EDT Sexual OrientationNot on filedocumented as of this encounter Functional Status * Over the past 2 weeks, how often have you been bothered by any of the following problems?QuestionAnswerDate of AssessmentAuthorLittle interest or pleasure in doing thingsNot at all05/06/2025 11:17 AM Bela Padilla MA Feeling down, depressed, or hopelessNot at all05/06/2025 11:17 AM Bela Padilla MAPatient Health Questionnaire-2 Prrda480 11:17 AM EDT Bela Sanabria MA documented as of this encounter Plan of Treatment DateTypeDepartmentCare Team (Latest Contact Info)Bzrtxqulnfq94/30/2025 2:15 PM ESTOffice Visit [facility] [place] [facility] [address] [place] [address] Juan Miguel Garnettison Vanessa, DO [address] [place] [address] documented as of this encounter Goals GoalPatient Goal TypeAssociated ProblemsRecent ProgressPatient-Stated?Author Help patient manage antidepressant medication Care PlanPatient on antidepressant monitoring Jesus Machado, PAdocumented as of this encounter Procedures Procedure NamePriorityDate/TimeAssociated DiagnosisCommentsPAR[facility] LOWER EXTREMITY VENOUS DUPLEX JHRTMRpnqxcc47/21/2025 12:01 PM EDT Pain and swelling of left lower leg documented in this encounter Results * Vascular US lower extremity venous duplex right (05/06/2025 12:01 PM EDT) Anatomical RegionLateralityModalityLower ExtremitiesUltrasoundSpecimen (Source)Anatomical Location / LateralityCollection Method / VolumeCollection TimeReceived Time05/06/2025 3:24 PM EDT Impressions 05/06/2025 3:33 PM EDT NO RIGHT LOWER EXTREMITY DVT IDENTIFIED. ELECTRONICALLY SIGNED BY: Alcides Lincoln MD Narrative 05/06/2025 3:33 PM EDT EXAM: [facility] US LOWER EXTREMITY VENOUS DUPLEX RIGHT [...] Note Alcides Lincoln MD - 05/06/2025 EXAM: [facility] US LOWER EXTREMITY VENOUS DUPLEX RIGHT [...] Lincoln MD Authorizing ProviderResult TypeResult StatusJesus Green [facility] US PROCEDURES Final Result documented in this encounter Visit Diagnoses Diagnosis Pain and swelling of left lower leg documented in this encounter Additional Health Concerns Active ProblemsNoted DateDiagnosed DatePatient on antidepressant monitoring plan 12/11/2024ssessmentNoted TimePHQ-9 Depression Total Score: 10108/07/2023 1:26 PM ESTdocumented as of this encounter Care Teams Team MemberRelationshipSpecialtyStart DateEnd Date Jus Sprague DO [address] [place] [address] PCP - GeneralFamily Medicine11/22/22 Jesus Green PA [address] [place] [address] Physician AssistantFamily Medicine03/20/24 Guillermina Martínez DO [address] [place] [address] Pulmonary Disease03/20/24documented as of this encounter
--- OUTSIDE RECORDS SUMMARY | 2025-05-20 15:09 | XMS_ITS | Encounter Summary ---
Author Organization [facility] Address [address] [place] [address] Care Team Providers Care Surgical First Assistant Name Role Phone Jus Sprague DO Primary Care Provider [phone] Jesus Green Unavailable Guillermina Martínez DO Unavailable [phone] Encounter Details DateTypeDepartmentCare Team (Latest Contact Info)Mawulogdbkl61/21/2025Travel Social History Tobacco UseTypesPacks/DayYears UsedDateSmoking Tobacco: NeverSmokeless [...] relatives?Once a week05/01/2023How often do you attend christianity or alevism services?Never05/01/2023o you belong to any clubs or organizations such as christianity groups, unions, fraternal or athletic groups, or school groups?No05/01/2023How often do you attend meetings of the clubs or organizations you belong to?Never05/01/2023re you , , , , never , or living with a partner?Living with wwmqxpt2305/01/2023 AUDIT-CAnswerDate RecordedQ1: How often do you have [...] now)?No3CommentsUnknownSex and Gender InformationValueDate RecordedSex Assigned at OehclBuqnpn21/19/2023 2:19 PM EDT Legal BynDrhdcb18/15/2023 6:45 PM EDTGender GrhhlcvdCrqgkk29/19/2023 2:19 PM EDT Sexual OrientationNot on filedocumented as of this encounter Functional Status * Over the past 2 weeks, how often have you been bothered by any of the following problems?QuestionAnswerDate of AssessmentAuthorLittle interest or pleasure in doing thingsNot at all05/06/2025 11:17 AM Bela Padilla MA Feeling down, depressed, or hopelessNot at all05/06/2025 11:17 AM Bela Padilla MAPatient Health Questionnaire-2 Nfhvu911 11:17 AM EDT Bela Sanabria MA documented as of this encounter Plan of Treatment DateTypeDepartmentCare Team (Latest Contact Info)Xxsqymkqnzo75/30/2025 2:15 PM ESTOffice Visit [facility] [address] [place] [address] Judith Garnett, DO [address] [place] [address] documented as of this encounter Goals GoalPatient Goal TypeAssociated ProblemsRecent ProgressPatient-Stated?Author Help patient manage antidepressant medication Care PlanPatient on antidepressant monitoring Jesus Machado, PAdocumented as of this encounter Visit Diagnoses Not on filedocumented in this encounter Additional Health Concerns Active ProblemsNoted DateDiagnosed DatePatient on antidepressant monitoring plan 5AssessmentNoted TimePHQ-9 Depression Total Score: 10108/07/2023 1:26 PM ESTdocumented as of this encounter Care Teams Team MemberRelationshipSpecialtyStwaddington DateEnd Date Jus Sprague DO [address] [place] [address] PCP - GeneralFamily Medicine11/22/22 Jesus Green PA [address] [place] [address] Physician AssistantFamily Medicine03/20/24 Guillermina Martínez DO [address] [place] [address] Pulmonary Disease03/20/24documented as of this encounter
--- OUTSIDE RECORDS SUMMARY | 2025-05-20 15:09 | XMS_ITS | Encounter Summary ---
Author Organization [facility] Address [address] [place] [address] Care Team Providers Care Medical Social Worker Name Role Phone Jus Sprague DO Primary Care Provider [phone] Jesus Green Unavailable Guillermina Martínez DO Unavailable [phone] Encounter Details DateTypeDepartmentCare Team (Latest Contact Info)Rbpcvfxovaz25/21/2025amboo flowsheet [facility] [address] [facility] [address] [place] [address] Jesus Green, CATHY [address] [facility] [address] [place] [address] Social History Tobacco UseTypesPacks/DayYears UsedDateSmoking Tobacco: NeverSmokeless [...] relatives?Once a week05/01/2023How often do you attend druze or yarsani services?Never05/01/2023o you belong to any clubs or organizations such as druze groups, unions, [employer] or athletic groups, or school groups?No05/01/2023How often do you attend meetings of the clubs or organizations you belong to?Never05/01/2023re you , , , , never , or living with a partner?Living with leiitmr3905/01/2023 AUDIT-CAnswerDate RecordedQ1: How often do you have [...] now)?No05/01/2023CommentsUnknownSex and Gender InformationValueDate RecordedSex Assigned at GlbwvCdwvrf73/19/2023 2:19 PM EDT Legal SqiKymxld47/15/2023 6:45 PM EDTGender KxdaqkbgEamjir59/19/2023 2:19 PM EDT Sexual OrientationNot on filedocumented as of this encounter Plan of Treatment DateTypeDepartmentCare Team (Latest Contact Info)Tgahymvxwui37/30/2025 2:15 PM ESTOffice Visit [facility] [address] [place] [address] Judith Garnett DO [address] [place] [address] documented as of this encounter Goals GoalPatient [...] DO [address] [place] [address] PCP - GeneralFamily Medicine11/22/22 Jesus Green PA [address] [place] [address] Physician AssistantFamily Medicine03/20/24 Guillermina Martínez DO [address] [facility] [place] [address] Pulmonary Disease03/20/24documented as of this encounter
--- OUTSIDE RECORDS SUMMARY | 2025-05-20 15:09 | XMS_ITS | Encounter Summary ---
Author Organization [facility] Address [address] [place] [address] Care Team Providers Care Newborn Hearing Screener Name Role Phone Jus Sprague DO Primary Care Provider [phone] Jesus Green Unavailable Guillermina Martínez DO Unavailable [phone] Encounter Details DateTypeDepartmentCare Team (Latest Contact Info)Dvjjtzzxgcb14/24/2025Refill [facility] [address] [place] [address] Sarmad Martins, DPM FACFAS [address] [place] [address] Ulcer of right foot with fat layer [...] relatives?Once a week05/01/2023How often do you attend judaism or taoism services?Never05/01/2023o you belong to any clubs or organizations such as judaism groups, unions, fraternal or athletic groups, or school groups?No05/01/2023How often do you attend meetings of the clubs or organizations you belong to?Never05/01/2023re you , , , , never , or living with a partner?Living with qkgkoku5805/01/2023 AUDIT-CAnswerDate RecordedQ1: How often do you have [...] now)?No05/01/2023CommentsUnknownSex and Gender InformationValueDate RecordedSex Assigned at SscfiPxmmxv47/19/2023 2:19 PM EDT Legal ZgqGmmxvv07/15/2023 6:45 PM EDTGender BxichzzbIwlvxk95/19/2023 2:19 PM EDT Sexual OrientationNot on filedocumented as of this encounter Miscellaneous Notes * Telephone Encounter - ELISABET Palma - 05/09/2025 11:37 AM EDT Pain meds acute pain documented in this encounter Plan of Treatment DateTypeDepartmentCare Team (Latest Contact Info)Wmkpiqxjnls93/30/2025 2:15 PM ESTOffice Visit [facility] [address] [place] [address] Judith Garnett, DO [address] [place] [address] documented as of this encounter Goals GoalPatient [...] DO [address] [place] [address] PCP - GeneralFamily Medicine11/22/22 Jesus Green, PA [address] [place] [address] Physician AssistantFamily Medicine03/20/24 Guillermina Martínez DO [address] [place] [address] Pulmonary Disease03/20/24documented as of this encounter
--- OUTSIDE RECORDS SUMMARY | 2025-05-20 15:09 | XMS_ITS | Encounter Summary ---
Author Organization [facility] Address [address] [place] [address] Care Team Providers Care Quarry Worker Name Role Phone Jus Sprague DO Primary Care Provider [phone] Jesus Green Unavailable Guillermina Martínez DO Unavailable [phone] Encounter Details DateTypeDepartmentCare Team (Latest Contact Info)Zxlxgeyyvby87/21/2025Orders Only [facility] [address] [facility] [address] [place] [address] Jesus Green, CATHY [address] [facility] [address] [place] [address] Cellulitis of right lower extremity (Primary Dx) [...] relatives?Once a week05/01/2023How often do you attend congregation or christian services?Never05/01/2023o you belong to any clubs or organizations such as congregation groups, unions, [employer] or athletic groups, or school groups?No05/01/2023How often do you attend meetings of the clubs or organizations you belong to?Never05/01/2023re you , , , , never , or living with a partner?Living with ndzhlgx6105/01/2023 AUDIT-CAnswerDate RecordedQ1: How often do you have [...] steady place to sleep or slept in [facility] (including now)?No05/01/2023CommentsUnknownSex and Gender InformationValueDate RecordedSex Assigned at KhjxqYuimhf92/19/2023 2:19 PM EDT Legal ZqcYqivsr47/15/2023 6:45 PM EDTGender LjgfvgenOxyeyv41/19/2023 2:19 PM EDT Sexual OrientationNot on filedocumented as of this encounter Functional Status * Over the past 2 weeks, how often have you been bothered by any of the following problems?QuestionAnswerDate of AssessmentAuthorLittle interest or pleasure in doing thingsNot at all05/06/2025 11:17 AM Bela Padilla MA Feeling down, depressed, or hopelessNot at all05/06/2025 11:17 AM Bela Padilla MAPatient Health Questionnaire-2 Sqfxr224 11:17 AM EDT Bela Sanabria MA documented as of this encounter Progress Notes * CATHY Almaguer - 05/06/2025 4:34 PM EDT Rx sent. documented in this encounter Plan of Treatment DateTypeDepartmentCare Team (Latest Contact Info)Ubswjiccnkh25/30/2025 2:15 PM ESTOffice Visit [facility] [address] [place] [address] Judith Garnett DO [address] [place] [address] documented as of this encounter Goals GoalPatient [...] DO [address] [place] [address] PCP - GeneralFamily Medicine11/22/22 Jesus Green, PA [address] [place] [address] Physician AssistantFamily Medicine03/20/24 Guillermina Martínez DO [address] [place] [address] Pulmonary Disease03/20/24documented as of this encounter
--- OUTSIDE RECORDS SUMMARY | 2025-05-20 15:09 | XMS_ITS | Encounter Summary ---
Author Organization [facility] Address [address] [place] [address] Care Team Providers Care Senior Process Control Tech Name Role Phone Jus Sprague DO Primary Care Provider [phone] Jesus Green Unavailable Guillermina Martínez DO Unavailable [phone] Encounter Details DateTypeDepartmentCare Team (Latest Contact Info)Cpqvpiiphdy93/21/2025Abstract [facility] [address] [place] [address] Sarmad Martins, DPM FACFAS [address] [place] [address] Social History Tobacco UseTypesPacks/DayYears UsedDateSmoking Tobacco: NeverSmokeless [...] relatives?Once a week05/01/2023How often do you attend sikh or advent services?Never05/01/2023o you belong to any clubs or organizations such as sikh groups, unions, [employer] or athletic groups, or school groups?No05/01/2023How often do you attend meetings of the clubs or organizations you belong to?Never05/01/2023re you , , , , never , or living with a partner?Living with beqazuw4405/01/2023 AUDIT-CAnswerDate RecordedQ1: How often do you have [...] steady place to sleep or slept in [place] (including now)?No05/01/2023CommentsUnknownSex and Gender InformationValueDate RecordedSex Assigned at AvrgaSxvimd07/19/2023 2:19 PM EDT Legal ZtgJrhwwm78/15/2023 6:45 PM EDTGender LhwlkqvhDpnksx71/19/2023 2:19 PM EDT Sexual OrientationNot on filedocumented as of this encounter Functional Status * Over the past 2 weeks, how often have you been bothered by any of the following problems?QuestionAnswerDate of AssessmentAuthorLittle interest or pleasure in doing thingsNot at all05/06/2025 11:17 AM Bela Padilla MA Feeling down, depressed, or hopelessNot at all05/06/2025 11:17 AM Bela Padilla MAPatient Health Questionnaire-2 Nqttq519 11:17 AM EDT Bela Sanabria MA documented as of this encounter Plan of Treatment DateTypeDepartmentCare Team (Latest Contact Info)Putzwtlckbh45/30/2025 2:15 PM ESTOffice Visit [facility] [place] [facility] [address] [place] [address] Judith Garnett, [address] [place] [address] documented as of this encounter Goals GoalPatient [...] Sprague, [address] [place] [address] PCP - GeneralFamily Medicine11/22/22 Jesus Green, PA [address] [place] [address] Physician AssistantFamily Medicine03/20/24 Guillermina Martínez DO [address] [place] [address] Pulmonary Disease03/20/24documented as of this encounter
--- OUTSIDE RECORDS SUMMARY | 2025-05-20 15:09 | XMS_ITS | Patient Health Record ---
Author Organization [facility] Servic es Address [address] [place] [address] Care Team Providers Care Psychiatric Secretary Name Role Phone MISS Isabel Johansen Primary Care Provider Briseyda Willis Unavailable [phone] Jony Steven Unavailable [phone] Zheng, MS. Hernandez Unavailable [phone] Reason For Referral No Information Problems Problem Type SNOMED Code ICD Code Onset Dates Problem Status W/U Status Risk Notes Problem Posttraumatic stress disorder (4 3360038) Post traumatic stress disorder (PTSD) (F43.10) Activeconfirmed Encounters Encounter Location Date Provider Diagnosis [facility] [address] [place] [address] 05/28/2024 Isabel [facility]ansen [facility] [place] [address]/20/2024 [facility] [place] [address] 07/08/2024[facility] [place] [address]Isabel Zuleta traumatic stress disorder (PTSD) F43.10 [facility] [place] [address]/09/2024 Isabel Zuleta traumatic stress disorder (PTSD) F43.10[facility] [address] [place] [address]Isabel Zuleta traumatic stress disorder (PTSD) F43.10[facility] [place] [address]/Katelyn MillerPost traumatic stress disorder (PTSD) F43.10[facility] [place] [address] 09/23/2024Katelyn MillerPost traumatic stress disorder (PTSD) F43.10[facility] [place] [address]/Katelyn MillerPost traumatic stress disorder (PTSD) F43.10[facility] [place] [address]/01/2025Katelyn MillerPost traumatic stress disorder (PTSD) F43.10[facility] [place] [address]/11/2024Katelyn MillerPost traumatic stress disorder (PTSD) F43.10[facility] [place] [address] 11/25/2024Katelyn MillerPost traumatic stress disorder (PTSD) F43.10 [...] Date ANTHEM MEDIBLUE DUAL-ELIGB LE [address] [place] [address] [id number] ADI HOLMAN Self - patient is the insured 5 [facility] SECONDARYPO [address] [place] [phone] [id number], RHONDASelf - patient is the xtnoyht11 2024[facility] [address] CASEY MUNIZ [phone], RHONDASelf - patient is the outnsmu44 2023[employer] CGS1 [facility] EVY FANG [id number], RHONDASelf - patient is the insured 2023
--- OUTSIDE RECORDS SUMMARY | 2025-05-20 15:09 | XMS_ITS | Clinical Summary ---
Author Organization [facility] Address [address] [place] [address] Care Team Providers Care Highway Engineering Technician Name Role Phone Jus Sprague DO Primary Care Provider [phone] Jesus Green Unavailable Guillermina Martínez DO Unavailable [phone] Allergies Active AllergyReactionsCriticalityNoted DateCommentsAmoxicillin-Pot Clavulanate UcmeUct4611/18/2022arbamide Nmtbcbqt18/27/4685OuuncjdlyfzYchcvIac02/05/2023 Mold - ears ZrczmnydjgksyxXeguqSdv18/05/2023 Mold - ears ViqlkeycbtmFnfeDgi07/05/2023 Medications MedicationSigDispense QuantityRefillsLast FilledStart DateEnd DateStatus acetaminophen [...] with long- term current use of insulin ([facility])Injection subcutaneous 5 times a day 200 [...] tablet (500 mg) before bedtime. 180 tablet [id number]/6Active lidocaine (Uro-Jet) 2 % gel Indications:Chronic foot ulcer, right, with necrosis of muscle ([facility])Insert into the urethra if needed for mild pain 60 mL 5Active Tirzepatide (Mounjaro) 7.5 MG/0.5ML solution auto-injector Indications:Type 2 diabetes mellitus with Charcot joint arthropathy ([facility])Inject 7.5 mg under the skin 1 (one) time per week 6 mL 5Active montelukast (Singulair) 10 MG tablet Indications:Allergic rhinitis, unspecified seasonality, unspecified triggerTake 1 tablet (10 mg) by mouth at bedtime 90 tablet 3065Active sertraline (Zoloft) 100 MG tablet Indications:AnxietyTAKE 1 TABLET BY MOUTH DAILY 90 tablet 1075Active Hlkqhtdxgwt-Iugjkmgej-Ojuqah (Trelegy Ellipta) 100-62.5-25 MCG/ACT aerosol powder Indications:Obstructive airway disease (HCC)INHALE 1 PUFF BY MOUTH DAILY 60 each 505Active Continuous Glucose Sensor (FreeStyle Leyla 3 Plus Sensor) [facility] Indications:Type 2 diabetes [...] not crush or chew. 90 capsule 5Active fluticasone (Flonase) 50 MCG/ACT nasal spray Indications:Nasal congestionAdminister 1-2 sprays into each nostril Daily Shake gently. Before first use, prime pump. After use, clean tip and replace cap 16 g /Discontinued Emollient (Cetaphil) moisturizing lotion Indications:Rash and nonspecific skin eruptionApply topically if needed for dry skin 237 mL Discontinued omeprazole (PriLOSEC) [address] capsule Indications:Gastroesophageal [...] EVERY NIGHT AT BEDTIME 60 tablet Discontinued(Reorder) LORazepam (Ativan) 1 MG tablet Indications:Psychophysiological insomniaTake 1 tablet (1 mg) by mouth every 6 (six) hours if needed for anxiety 30 tablet /Discontinued(Reorder) zolpidem (Ambien) 10 MG tablet Indications:Psychophysiological insomniaTake 1 tablet (10 mg) by mouth as needed at bedtime for sleep 30 tablet /Discontinued(Reorder) cyclobenzaprine (Flexeril) 10 MG tablet Indications:Sciatica of left sideTake 1 tablet (10 mg) by mouth 3 (three) times a day as needed for muscle spasms 30 tablet /Discontinued(Reorder) sulfamethoxazole-trimethoprim (Bactrim DS) 800-160 MG per tablet Indications:Cellulitis of right lower extremityTake 1 tablet by mouth in the morning and 1 tablet before bedtime. Do all this for 10 days. 20 tablet /Expired HYDROcodone-acetaminophen ([place]) 5-325 MG tablet Indications:Ulcer of right foot with fat layer exposed (HCC)Take 1 tablet by mouth every 6 (six) hours if needed for severe pain for up to 5 days 20 tablet /Expired Active Problems ProblemNoted DateDiagnosed DateType 2 diabetes mellitus with hyperglycemia, with long-term current use of kqebnsi7212/13/2024Type 2 diabetes mellitus with stage 3b chronic kidney disease, with long-term current use of akcjpjp0312/13/2024Stage 3 chronic kidney gurnekh6110/01/2024Low pgygafwopq84/18/2025Symptomatic anemia 10/01/2024Foreign body in right foot10/01/2024hronic ulcer of right foot with necrosis of fokscs0810/01/2024MI 40.0-44.9, adult09/03/2024Sleep apnea09/03/2024 CKD (chronic kidney disease)04/17/20246828Cvxol21/02/2024Shortness of breath 04/17/2024Essential mjtsncqycfkc79/02/8796Dtpfyxbggi20/27/2024Osteomyelitis 03/12/2024osttraumatic stress pqdamveg81/27/2024ellulitis of foot, right 01/08/2024Ulcer of toe of right foot01/08/2024ellulitis of right leg01/08/2024 TAYLOR (acute kidney injury)12/21/2023OPD (chronic obstructive pulmonary disease) 12/21/20235873Ukflfdwugydy84/06/2024cute kidney piqxqg2512/21/2023alculus of gallbladder without cholecystitis without azubskyvwpc26/01/2024holelithiasis without cdojtheoraz33/01/2024llergic fwubemey46/05/6402Flxkirp49/05/2023harcot arthropathy of mldykhh0011/18/2022Type 2 diabetes mellitus with Charcot joint gpfvruckwkt27/05/2023 Assessment & Plan (04/16/2025 4:41 PM EDT): [...] , Instructed on the importance of taking insulinbefore eating. If it has been more than 30-45 min since eating they should not give the meal dose but should just give a correction insulin dose. , Instructed on the proper insulin injection technique either in the abdomen, upper outer thigh, or back of the arm. They are to rotate injection sites to prevent scar tissue. , Instructions given today include: Insulin instructions and Dietary education. She is working on getting back on track. Will change to leyla 3 cgm. Discussed counting carbs as I don't think she was always doing this correctly [...] vomiting, diarrhea, or reflux. Deformity of right foot11/18/20220509Qddtzegisy08/05/2023iabetic polyneuropathy associated with type 2 diabetes igpiiodu21/05/2023 Assessment & Plan (04/21/2023 12:36 PM EDT): [...] increase insulin to try and improve control. Fjazeqxj50/05/2023Moderate nonproliferative diabetic retinopathy of both eyes with macular edema associated with type2 diabetes dofikmsj90/05/2023lass 2 severe obesity due to excess calories with serious comorbidity and body mass index (BMI) of35.0 to 35.9 in adult11/18/2022Nuclear senile wrumggpl89/05/2023 Irykdjamcf84/05/2023Restless legs svlmhowz75/05/2023Restless legs11/18/2022Not bearing weight on lower teexyagnf95/22/2020Open wound of foot08/07/2019Diabetic foot ulcer04/05/2019 Resolved Problems ProblemNoted DateDiagnosed DateResolved DateDiabetes mellitus due to underlying condition with diabetic ljkchoqnbprcib11Diabetes04/17/2024 12/13/2024Long-term insulin useLong term current use of limgptd74Type 2 diabetes mellitus with hypoglycemia without comaType 2 diabetes mellitus without /05/2023 04/21/2023harcot joint of foot Overview (10/01/2024): Outside Source Comment: Last Assessment [...] orreflux. Polyneuropathy due to type 2 diabetes vfmuysfl36 Overview (10/01/2024): Outside Source Comment: Last Assessment [...] associated with type 2 diabetes mellitus Foot lmskaanqd65 Encounters DateTypeDepartmentCare YalxVrwsoqcswic48/04/2025bstract [facility] [address] [facility] [address] Sarmad Martins DPM FACFAS 05/16/2025bstract [facility] [address] [place] [address] Judith Garnett, DO 05/16/2025bstract [facility] [address] [place] [address] Judith Garnett, DO 05/09/2025Refill [facility] [address] [place] [address] Sarmad Martins, DPM FACFAS Ulcer of right foot with fat layer exposed (HCC) (Primary Dx)05/06/2025 11:30 AM EDTAncillary Procedure [facility] [address] [place] [address] Pain and swelling of left lower leg05/06/2025 11:00 AM EDTOffice Visit [facility] [address] [place] [address] Jesus Green, PA Type 2 diabetes mellitus with Charcot joint arthropathy (HCC) (Primary Dx); Psychophysiological insomnia; Sciatica of left side; Primary hypertension; Gastroesophageal reflux disease without esophagitis; Gait instability; 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); Pain and swelling of right lower aqdfcavji63/21/2025Results Follow-Up [facility] [address] [place] [address] Jesus Green, PA Vascular US lower extremity venous duplex right05/06/2025Orders Only [facility] [address] [place] [address] Jesus Green, PA Cellulitis of right lower extremity (Primary Dx)05/06/2025bstract [facility] [address] [place] [address] Sarmad Martins R, DPM FACFAS 05/06/2025amboo flowsheet [facility] [address] [place] [address] Jesus Green, PA 05/06/20251159Hdifjz77/20/2025Telephone [facility] [address] [facility] [place] [address] Elena Damico RN Fkuklygidsv05/17/2025Telephone [facility] [address] [place] [address] Dolce, Sarmad R, DPM FACFAS 04/30/2025bstract [facility] [address] [place] [address] Dolce, Sarmad R, DPM FACFAS 04/25/2025bstract [facility] [address] [place] [address] Dolce, Sarmad R, DPM FACFAS 04/15/2025 3:15 PM EDTOffice Visit [facility] [address] [facility] [place] [address] Judith Garnett DO Diabetic polyneuropathy associated with type 2 [...] index (BMI) of35.0 to 35.9 in adult ([facility])04/15/2025amboo flowsheet [facility] [address] [facility] [place] [address] Judith Garnett DO 04/15/20258319Zougkp98/26/2025 11:00 AM EDTOffice Visit [facility] [address] [facility] [place] [address] Jesus Green, PA Psychophysiological insomnia; Sciatica of left side; Anxiety; Moderate episode of recurrent major depressive disorder (HCC)04/11/2025Travel 04/11/2025Refill [facility] [address] [place] [address], [place] [address] Sarmad Martins, DPM FACFAS Ulcer of right foot with fat layer exposed (HCC) (Primary Dx)04/10/2025bstract [facility] [address] [place] [address] Sarmad Martins R, DPM FACFAS 03/27/2025Refill [facility] [address] [place] [address] Jus Sprague, DO Primary vwrrkmqsanjl29/10/2025Refill [facility] [address] [place] [address] Jus Sprague, DO Diabetic polyneuropathy associated with type 2 diabetes mellitus (HCC)03/12/2025 11:20 AM EDTOffice Visit [facility] [address] [place] [address] Jesus Green, PA Anxiety (Primary Dx); Moderate episode of recurrent major depressive disorder (HCC); Frequency of urination; Psychophysiological insomnia; Diabetic ulcer of left foot associated with type 2 diabetes mellitus, with bone involvement withoutevidence of necrosis, unspecified part of foot (HCC) 03/12/2025amboo flowsheet [facility] [address] [place] [address] Jesus Green PA 03/12/20258630Ppgioa17/26/2025Telephone [facility] [address] [place] [address] Judith Garnett, DO Appointment Vtxuxsf9503/10/2025Refill [facility] [address] [place] [address], [place] [address] Sarmad Martins R, DPM FACFAS Ulcer of right foot with fat layer exposed (HCC) (Primary Dx)03/07/2025Refill [facility] [address] [place] [address] Jesus Green PA Psychophysiological insomnia; Sciatica of left side03/07/2025[facility] [address] [place] [address] Judith Garnett, DO Type 2 diabetes mellitus with Charcot joint arthropathy (HCC)03/07/2025[facility] [address] [place] [address] Jus Sprague, DO Primary gyjcqfcowxco79/21/2025[facility] Pod[address] [place] [address] Dolce, Sarmad R, DPM FACFAS Ulcer of right foot with fat layer exposed (HCC) (Primary Dx)02/28/2025bstract [facility] [address] [place] [address] Dolce, Sarmad R, DPM FACFAS 02/28/2025bstract [facility] [address] [place] [address] Dolce, Sarmad R, DPM FACFAS 02/27/2025[facility] [address] [place] [address] Jesus Green PA Psychophysiological uhkzdfdv16/13/2025bstract [facility] [place] [address] Dolce, Sarmad R, DPM FACFAS 02/24/2025Telephone [facility] [address] [place] [address] Dolce, Sarmad R, DPM FACFAS 02/24/2025bstract [facility] [address] [place] [address] Jus Sprague, DO 02/22/2025Refill [facility] [address] [place] [place] [address] Guillermina Martínez DO Obstructive airway disease (HCC)02/19/2025bstract [facility] [address] [place] [address] Jus Sprague, DO from Last 3 Months Immunizations ImmunizationAdministration DatesNext SopDesj8903/18/2019 Family History Medical HistoryRelationNameCommentsNo Known ProblemsBrotherCOPDFatherRon Suzi [...] sexual activity by your part ner or ex-partner?05/01/2023Social Connection and Isolation PanelAnswerDate RecordedIn a typical week, how many times do you talk on the phone with family, friends, or neighbors?More than three times a week05/01/2023How often do you get together with friends or relatives?Once a week05/01/2023How often do you attend jain or mandaeism services?Never05/01/2023o you belong to any clubs or organizations such as jain groups, unions, fraternal or athletic groups, or school groups?No05/01/2023How often do you attend meetings of the clubs or organizations you belong to?Never05/01/2023re you , , , , never , or living with a partner?Living with ezrgjum2805/01/2023 AUDIT-CAnswerDate RecordedQ1: How often do you have [...] now)?No05/01/2023CommentsUnknownSex and Gender InformationValueDate RecordedSex Assigned at QtrnhAddxrc28/19/2023 2:19 PM EDT Legal SckRbseqf19/15/2023 6:45 PM EDTGender QzsiomsdXxucxj35/19/2023 2:19 PM EDT Sexual OrientationNot on file Last Filed Vital Signs Vital SignReadingTime TakenCommentsBlood Ddrizint167/8805/06/2025 11:12 AM EDT Nzako525005/06/2025 11:12 AM KJMCyqlcjkjncy96.5 ??C (95.9 ??F)05/06/2025 11:12 AM EDTRespiratory Rate--Oxygen Pyycpoznfa61%05/06/2025 11:12 AM EDTInhaled Oxygen Concentration--Rgfkjs924 kg (226 lb 12.8 oz)05/06/2025 11:12 AM PTWVjsfqq048.2 cm (5' 7 )05/06/2025 11:12 AM EDTBody Mass Index35.5205/06/2025 11:12 AM EDT Plan of Treatment DateTypeDepartmentCare Team (Latest Contact Info)Pdzioelxbfa06/30/2025 2:15 PM ESTOffice Visit [facility] [address] [place] [address] Judith Garnett, [address] [place] [address] Health MaintenanceDue DateLast DoneCommentsCT Kdxlhfenonzm46/11/1970Colonoscopy 1969Colorectal Cancer Zzdsnzcni22/11/1970FIT-DNA1969FIT1969 FOBT1969 8382Aceqlcehwcdky22/11/1970MMR Vaccines (1 of 1 - Standard series) 1970Hepatitis B Vaccines (1 of 3 - 19+ 3-dose series)1988 Pneumococcal Vaccine: Pediatrics (0 to 5 Years) and At-Risk Patients (6 to 64 Years) (1 of 2 - PCV)1988Pap Smear1990Cervical Cancer Screening 09/25/1999HPV/Wjespg6209/25/1999DTaP/Tdap/Td Vaccines (2 - Td or Tdap)04/15/2019 03/18/2019Diabetes: Urine Protein Madpgenoz40, 04/20/2022 COVID-19 Vaccine ( - season)/03/2021, 12/25/2020Influenza Vaccine (#1)2025Medicare Annual Wellness (AWV)5108/07/2023, 06/07/2024, 05/01/2023, Additional history existsDiabetes: Hemoglobin A1C , 12/11/2024, 10/02/2024, Additional history existsMammogram 603/, 3Diabetes: Retinopathy Wmlrxofqm47/20/2026 10/03/2024, 09/19/2024, 08/01/2024, Additional history existsHIB VaccinesAged OutNo longer eligible based on patient's age to complete this topicHPV Vaccines Aged OutNo longer eligible based on patient's age to complete this topic Hepatitis A VaccinesAged OutNo longer eligible based on patient's age to complete this topicIPV VaccinesAged OutNo longer eligible based on patient's age to complete this topicMeningococcal B VaccineAged OutNo longer eligible based on patient's age to complete this topicMeningococcal VaccineAged OutNo longer eligible based on patient's age to complete this topicRotavirus VaccinesAged Out No longer eligible based on patient's age to complete this topic Goals GoalPatient Goal TypeAssociated ProblemsRecent ProgressPatient-Stated?Author Help patient manage antidepressant medication Care PlanPatient on antidepressant monitoring Jesus Machado PA Procedures Procedure NamePriorityDate/TimeAssociated DiagnosisComments[facility] LOWER EXTREMITY VENOUS DUPLEX QEVCPYonmirj79/21/2025 12:01 PM EDT Pain and swelling of left lower leg POCT GLYCOSYLATED HEMOGLOBIN (HGB A1C)Daldwkc1304/15/2025 3:28 PM EDT Type 2 diabetes mellitus with Charcot joint arthropathy (HCC) POCT URINALYSIS CJQVMBOTDewmwmi54/27/2025 12:49 PM EDT Frequency of urination DIABETIC RETINOPATHY SCREENING - OU - BOTH ICCWQrvdsav30/20/2025 4:16 PM EDTBI MAMMOGRAM SCREENING TOMOSYNTHESIS WIUCZQXAAVcypicu73/14/2025 8:22 AM EDT Encounter for screening mammogram for malignant neoplasm of breast MICROALBUMIN / CREATININE URINE AACTFErjwnqj11/31/2023 8:07 AM EDT from Last 3 Months [...] MD Narrative 05/06/2025 3:33 PM EDT EXAM: [facility] US LOWER EXTREMITY VENOUS DUPLEX RIGHT [...] Note Alcides Lincoln MD - 05/06/2025 EXAM: [facility] US LOWER EXTREMITY VENOUS DUPLEX RIGHT [...] BY: Alcides Lincoln MD Authorizing ProviderResult TypeResult Sree Green [facility] US PROCEDURES Final Result * POCT glycosylated hemoglobin (Hb A1C) docked device (04/15/2025 3:28 PM EDT) ComponentValueRef RangeTest MethodAnalysis TimePerformed AtPathologist SignatureHemoglobin A1C12.2Specimen (Source)Anatomical Location / Laterality Collection Method / VolumeCollection TimeReceived TimeBloodVenous blood specimen / Vgvpwem7304/15/2025 3:28 PM EDT Narrative Authorizing ProviderResult TypeResult [...] / LateralityCollection Method / VolumeCollection Time Received NpatNwmfc11/27/2025 12:49 PM EDT Narrative Authorizing ProviderResult TypeResult Sree Green [facility] OF CARE TEST ENTER/EDIT ORDERABLESFinal Result * [...] Jose R Cano M.D. Authorizing ProviderResult TypeResult Statusbrandie Green [facility] BI PROCEDURES Final Result * (ABNORMAL) Microalbumin / creatinine urine ratio (05/16/2023 8:07 AM EDT) ComponentValueRef RangeTest MethodAnalysis TimePerformed AtPathologist SignatureCREATININE, RANDOM [id number] - 275 mg/dLQUESTALBUMIN, URINE6.9See Note: mg/dLQUESTComment: Reference [...] Performing Organization Information ?Site ID: QPT ?Name: [facility] ?Address: [address], [address] [place] [address] ?Director: Cristi Kelly MD Authorizing ProviderResult TypeResult StatusJesus DAUGHERTY URINE ORDERABLES Final ResultPerforming OrganizationAddressCity/State/ZIP CodePhone Number [facility] from Last 3 Months or Most Recently Relevant to Health Maintenance Additional Health Concerns Active ProblemsNoted DateDiagnosed DatePatient on antidepressant monitoring plan 12/11/2024 Insurance Care Teams Team MemberRelationshipSpecialtyStart DateEnd Jus Sprague DO [address] [place] [address] PCP - GeneralFamily Medicine11/22/22 Jesus Green PA [address] [place] [address] Physician AssistantFamily Medicine03/20/24 Guillermina Martínez DO [address] [place] [address] Pulmonary Disease03/20/24
--- OUTSIDE RECORDS SUMMARY | 2025-05-20 15:09 | XMS_ITS | Encounter Summary ---
Author Organization [facility] Address [address] [place] [address] Care Team Providers Care Rolled Ham Lacer Name Role Phone Jus Sprague DO Primary Care Provider [phone] Jesus Green Unavailable Guillermina Martínez DO Unavailable [phone] Encounter Details DateTypeDepartmentCare Team (Latest Contact Info)Xmunbqzwlue56/21/2025Results Follow-Up [facility] [address] [facility] [address] [place] [address] Jesus Green, CATHY [address] [facility] [address] [place] [address] Vascular US lower extremity venous duplex right [...] relatives?Once a week05/01/2023How often do you attend episcopalian or pentecostal services?Never05/01/2023o you belong to any clubs or organizations such as episcopalian groups, unions, [employer] or athletic groups, or school groups?No05/01/2023How often do you attend meetings of the clubs or organizations you belong to?Never05/01/2023re you , , , , never , or living with a partner?Living with lmghdhb9005/01/2023 AUDIT-CAnswerDate RecordedQ1: How often do you have [...] steady place to sleep or slept in [facility] (including now)?No05/01/2023CommentsUnknownSex and Gender InformationValueDate RecordedSex Assigned at YjgpjSluqyy59/19/2023 2:19 PM EDT Legal KpfBodruf04/15/2023 6:45 PM EDTGender UzeickbzFgssfc71/19/2023 2:19 PM EDT Sexual OrientationNot on filedocumented as of this encounter Functional Status * Over the past 2 weeks, how often have you been bothered by any of the following problems?QuestionAnswerDate of AssessmentAuthorLittle interest or pleasure in doing thingsNot at all05/06/2025 11:17 AM Bela Padilla MA Feeling down, depressed, or hopelessNot at all05/06/2025 11:17 AM Bela Padilla MAPatient Health Questionnaire-2 Jwvrc325 11:17 AM EDT Bela Sanabria MA documented as of this encounter Plan of Treatment DateTypeDepartmentCare Team (Latest Contact Info)Ktzmasgzbsg00/30/2025 2:15 PM ESTOffice Visit [facility] [address] [place] [address] Judith Garnett DO [address] [place] [address] documented as of this encounter Goals GoalPatient [...] DateEnd Date Jus Sprague DO [address] [facility] [address] [place] [address] PCP - GeneralFamily Medicine11/22/22 Jesus Green, PA [address] [facility] [address] [place] [address] Physician AssistantFamily Medicine03/20/24 Guillermina Martínez DO [address] [place] [address] Pulmonary Disease03/20/24documented as of this encounter
--- OUTSIDE RECORDS SUMMARY | 2025-05-20 15:10 | XMS_ITS | Clinical Summary ---
Author Organization [facility] Address [address] [place] [address] Phone Care Team Providers Care Podiatrist Orthopedic Name Role Phone Jesus Green Primary Care Provider [phone] Allergies Active AllergyReactionsCriticalityNoted UsbyWjrwacvbUypuuodjzoyGmbsq73/02/2024 PenicillinsHives,Unknown,TlaiVvix31/05/2023 Medications MedicationSigDispense QuantityRefillsLast FilledStart DateEnd DateStatus carvedilol [...] 2 puffs every 4 hours if needed.09/04/2023ctive ycndwfgiqfy-awgysgcmn-aevvhbqh (Trelegy Ellipta) 100-62.5-25 mcg blister with device Inhale 1 puff once daily.03/20/2024ctive insulin glargine (Lantus Solostar U-100 Insulin) 100 unit/mL (3 mL) pen INJECT UNDER THE SKIN 13 UNITS TWO TIMES A DAY RFZSEMKS67/06/2023ctive insulin lispro (HumaLOG) 100 unit/mL injection 1:5 [...] Problems ProblemNoted DateDiagnosed DateSleep apnea09/03/2024MI 40.0-44.9, adult 09/03/20242974Gfeborug25/02/2024Essential cwyntbocidsm75/02/2024KD (chronic kidney disease)04/17/2024OPD (chronic obstructive pulmonary disease)04/17/2024 Shortness of isjibb9904/17/20243775Iznoi86/02/2024 Resolved Problems ProblemNoted DateDiagnosed DateResolved DateBMI 38.0-38.9,adult04/17/2024 09/03/2024 Family History Medical HistoryRelationNameCommentsNo Known ProblemsBrotherDiabetes type IFather LeukemiaMotherSeizuresMotherstomach issuesSisterRelationNameStatusComments BrotherFatherMotherDeceasedSister Social History Tobacco UseTypesPacks/DayYears UsedDateSmoking Tobacco: NeverSmokeless Tobacco: NeverAlcohol UseStandard Drinks/WeekCommentsNot Currently0 (1 standard drink = 0.6 oz pure alcohol)CommentsUnknownSex and Gender InformationValueDate RecordedSex Assigned at BirthNot on fileLegal XxlWtgrfc48/25/2024 9:25 AM EDT Gender IdentityNot on fileSexual OrientationNot on file Last Filed Vital Signs Vital SignReadingTime TakenCommentsBlood Ypaimfmk572/3536509/03/2024 3:22 PM EST Qkzav762609/03/2024 3:22 PM ESTTemperature--Respiratory Rate--Oxygen Saturation-- Inhaled Oxygen Concentration--Zscuxr977 kg (263 lb 12.8 oz)09/03/2024 3:22 PM PQIOeszsa930.2 cm (5' 7 )09/03/2024 3:22 PM ESTBody Mass Index41.32009/03/2024 3:22 PM EST Plan of Treatment Health MaintenanceDue DateLast DoneCommentsCT Hlnolinurdal70/11/1970Colonoscopy 1969Colorectal Cancer Thcivysuw92/11/1970Diabetes: Hemoglobin A1C 1969FIT-DNA (Cologuard)1969FIT1969HIV Cfzhxpgbq72/11/1970 Medicare Annual Wellness Visit (AWV)1969 9488Tcldtrdbsrsaz16/11/1970MMR Vaccines (1 of 1 - Standard series)1970Diabetes: Retinopathy Screening 09/25/1979Hepatitis C Baikfvanm42/11/1988Hepatitis B Vaccines (1 of 3 - 19+ 3- dose series)1988Pneumococcal Vaccine (1 of 2 - PCV)1988Cervical Cancer Yjraukyvg31/11/1991HPV/Vkgeft0009/24/1990Pap Smear1990Zoster Vaccines (1 of 2)09/25/2019Diabetes: Urine Protein Sgmwmrxic84Influenza Vaccine (#1)2025Lipid Panel/OVID-19 Vaccine (3 - season)2021, 12/25/20202200Nuupesuyw01/14/198252/, 09/27/2024, 05/16/2023, Additional history existsDTaP/Tdap/Td Vaccines (2 [...] Jesus Green PA [address] [address] PCP - GeneralFamily Eaeecbwc57/2/24
--- OUTSIDE RECORDS SUMMARY | 2025-05-20 15:10 | XMS_ITS | Encounter Summary ---
Author Organization [facility] Address [address] [place] [address] Care Team Providers Care Parasitologist Name Role Phone Jus Sprague DO Primary Care Provider [phone] Jesus Green PA Unavailable Guillermina Martínez DO Unavailable [phone] Encounter Details DateTypeDepartmentCare Team (Latest Contact Info)Tdtljhxrvuj02/31/2025Abstract [facility] [address] [facility] [address] [place] [address] Judith Garnett, DO [address] [facility] [address] [place] [address] Social History Tobacco UseTypesPacks/DayYears UsedDateSmoking Tobacco: NeverSmokeless [...] relatives?Once a week05/01/2023How often do you attend pentecostalism or buddhist services?Never05/01/2023o you belong to any clubs or organizations such as pentecostalism groups, unions, [employer] or athletic groups, or school groups?No05/01/2023How often do you attend meetings of the clubs or organizations you belong to?Never05/01/2023re you , , , , never , or living with a partner?Living with rwjgjhl9605/01/2023 AUDIT-CAnswerDate RecordedQ1: How often do you have [...] now)?No05/01/2023CommentsUnknownSex and Gender InformationValueDate RecordedSex Assigned at MpgqkSdanfl55/19/2023 2:19 PM EDT Legal WhbNlaxzg15/15/2023 6:45 PM EDTGender CjwsgclhJoxhqv58/19/2023 2:19 PM EDT Sexual OrientationNot on filedocumented as of this encounter Plan of Treatment DateTypeDepartmentCare Team (Latest Contact Info)Iqxuvlrhszk62/30/2025 2:15 PM ESTOffice Visit [facility] [address] [place] [address] Judith Garnett DO [address] [place] [address] documented as of this encounter Goals GoalPatient [...] DO [address] [place] [address] PCP - GeneralFamily Medicine11/22/22 Jesus Green PA [address] [place] [address] Physician AssistantFamily Medicine03/20/24 Guillermina Martínez DO [address] [place] [address] Pulmonary Disease03/20/24documented as of this encounter
--- OUTSIDE RECORDS SUMMARY | 2025-05-20 15:10 | XMS_ITS | Encounter Summary ---
Author Organization [facility] Address [address] [place] [address] Care Team Providers Care Operations Welder Name Role Phone Jus Sprague DO Primary Care Provider [phone] Jesus Green Unavailable Guillermina Martínez DO Unavailable [phone] Encounter Details DateTypeDepartmentCare Team (Latest Contact Info)Kptsgsqcopw75/04/2025Abstract [facility] [address] [place] [address] Sarmad Martins, DPM FACFAS [address] [place] [address] Social History Tobacco UseTypesPacks/DayYears UsedDateSmoking Tobacco: NeverSmokeless [...] week05/01/2023How often do you attend jain or taoism services?Never05/01/2023o you belong to any clubs or organizations such as jain groups, unions, [employer] or athletic groups, or school groups?No05/01/2023How often do you attend meetings of the clubs or organizations you belong to?Never05/01/2023re you , , , , never , or living with a partner?Living with mfbvbgb6305/01/2023 AUDIT-CAnswerDate RecordedQ1: How often do you have [...] now)?No05/01/2023CommentsUnknownSex and Gender InformationValueDate RecordedSex Assigned at AdzieRhdzkm38/19/2023 2:19 PM EDT Legal PiaHsuckv34/15/2023 6:45 PM EDTGender YvztzodiXrqzbg67/19/2023 2:19 PM EDT Sexual OrientationNot on filedocumented as of this encounter Plan of Treatment DateTypeDepartmentCare Team (Latest Contact Info)Dpdgbjutcvp29/30/2025 2:15 PM ESTOffice Visit [facility] [address] [place] [address] Judith Garnett DO [address] [place] [address] documented as of this encounter Goals GoalPatient [...] DO [address] [place] [address] PCP - GeneralFamily Medicine11/22/22 Jesus Green PA [address] [address] Physician AssistantFamily Medicine03/20/24 Guillermina Martínez DO [address] [place] [address] Pulmonary Disease03/20/24documented as of this encounter
--- OUTSIDE RECORDS SUMMARY | 2025-05-20 15:10 | XMS_ITS | Encounter Summary ---
Author Organization [facility] Address [address] [place] [address] Care Team Providers Care Parts Manager Name Role Phone Jus Sprague DO Primary Care Provider [phone] Jesus Green PA Unavailable Guillermina Martínez DO Unavailable [phone] Encounter Details DateTypeDepartmentCare Team (Latest Contact Info)Mnhbixovews78/31/2025Abstract [facility] [address] [facility] [address] [place] [address] Judith Garnett, DO [address] [facility] [address] [place] [address] Social History Tobacco UseTypesPacks/DayYears UsedDateSmoking Tobacco: NeverSmokeless [...] week05/01/2023How often do you attend judaism or congregational services?Never05/01/2023o you belong to any clubs or organizations such as judaism groups, unions, [employer] or athletic groups, or school groups?No05/01/2023How often do you attend meetings of the clubs or organizations you belong to?Never05/01/2023re you , , , , never , or living with a partner?Living with smrxogz2305/01/2023 AUDIT-CAnswerDate RecordedQ1: How often do you have [...] now)?No05/01/2023CommentsUnknownSex and Gender InformationValueDate RecordedSex Assigned at HoxqfKfbbpq39/19/2023 2:19 PM EDT Legal ZxyZpellj03/15/2023 6:45 PM EDTGender ZkhlzdoxGljyaa41/19/2023 2:19 PM EDT Sexual OrientationNot on filedocumented as of this encounter Plan of Treatment DateTypeDepartmentCare Team (Latest Contact Info)Uygtttfrqie93/30/2025 2:15 PM ESTOffice Visit [facility] [address] [place] [address] Judith Garnett DO [address] [place] [address] documented as of this encounter Goals GoalPatient [...] DO [address] [place] [address] PCP - GeneralFamily Medicine11/22/22 Jesus Green PA [address] [place] [address] Physician AssistantFamily Medicine03/20/24 Guillermina Martínez DO [address] [facility] [place] [address] Pulmonary Disease03/20/24documented as of this encounter
== END 2025-05-20 15:06 | disposition home or self-care (01) ==
LOC: WC 15:05
PROVIDERS: PCP Physician Assistant; Visit Provider Physician Assistant
DX: E11.621 Type 2 diabetes mellitus with foot ulcer (principal); L97.412 Non-pressure chronic ulcer of right heel and midfoot with fat layer exposed
CPT/HCPCS: 29445

== ENCOUNTER 2025-05-27 14:37 | Outpatient (OUT) | payer MEDICARE, SELFPAY ==
--- OUTSIDE RECORDS SUMMARY | 2024-09-03 10:30 | XMS_ITS ---
Author Organization [facility] Servic es Address [address] [facility] [place] [address] Care Team Providers Care Safety Risk Lead Name Role Phone MISS Isabel Johansen Primary Care Provider REASON FOR VISIT BH F/U Encounters Encounter Location Date Provider Diagnosis [facility] [address] [facility] [place] [address] 09/03/2024 Isabel Johansen Plan Of Treatment No Information Progress Notes * CLEVELAND HOLMANADOB: 0 (54 yo F)Acc No.[id number]:09/03/2024 BH F/U - Patient Patient: Mary VALENTINE ADI :?RSAHEED Simons LISW-SDOB:1970 ???Age:53 Y???Sex:FemaleDate:09/03/2024Phone:[phone]:[address] [place] [phone] Subjective: * Chief Complaints: * B H F/U Care Plan Details* * Electronic signature of Isabel NELIDA Johansen on 05/27/2025 at 02:41 PM EST Sign off status: Pending * Provider: RASHEED Presley LISW-Rivka Date: 0 09/03/2024 Generated for Printing/Faxing/eTransmitting on:?05/27/2025 02:41 PM EST
--- OUTSIDE RECORDS SUMMARY | 2024-09-16 05:00 | XMS_ITS ---
Author Organization [facility] Servic es Address [address] [facility] [place] [address] Care Team Providers Care Outside Event Sales Specialist Name Role Phone MISS Isabel Johansen Primary Care Provider [phone] REASON FOR VISIT BH F/U Encounters Encounter Location Date Provider Diagnosis [facility] [address] [facility] [place] [address] 09/16/2024 Isabel Johansen Plan Of Treatment No Information Progress Notes * CLEVELAND HOLMANADOB: 0 (54 yo F)Acc No.[id number]:09/16/2024 BH F/U - Patient Patient: Mary VALENTINE ADI :?RASHEED Simons, NELIDA-SDOB:1970 ???Age:53 Y???Sex:FemaleDate:09/16/2024Phone:[phone]:[address] [place] [phone] Subjective: * Chief Complaints: * B H F/U Billing Information: * Procedure Codes: Care Plan Details* * Electronic signature of Isabel NELIDA Johansen on 05/27/2025 at 02:41 PM EST Sign off status: Pending * Provider: RASHEED Presley LISW-Rivka Date: 0 09/16/2024 Generated for Printing/Faxing/eTransmitting on:?05/27/2025 02:41 PM EST
--- OUTSIDE RECORDS SUMMARY | 2024-11-04 10:00 | XMS_ITS ---
Author Organization [facility] Servic es Address [address] [facility] [place] [address] Care Team Providers Care Tower Erector Name Role Phone MISS Isabel Johansen Primary Care Provider REASON FOR VISIT BH F/U Encounters Encounter Location Date Provider Diagnosis [facility] [address] [facility] [place] [address] 11/04/2024 Isabel Johansen Plan Of Treatment No Information Progress Notes * CLEVELAND HOLMANADOB: 0 (54 yo F)Acc No.[id number]:11/04/2024 BH F/U - Patient Patient: Mary VALENTINE ADI :?RASHEED Simons, NELIDA-SDOB:1970 ???Age:54 Y???Sex:FemaleDate:11/04/2024Phone:[phone]:[address] [place] [phone] Subjective: * Chief Complaints: * B H F/U Billing Information: * Procedure Codes: Care Plan Details* * Electronic signature of Isabel NELIDA Johansen on 05/27/2025 at 02:41 PM EST Sign off status: Pending * Provider: RASHEED Presley LISW-Rivka Date: 0 11/04/2024 Generated for Printing/Faxing/eTransmitting on:?05/27/2025 02:41 PM EST
--- OUTSIDE RECORDS SUMMARY | 2024-12-05 11:00 | XMS_ITS ---
Author Organization [facility] Servic es Address [address] [facility] [place] [address] Care Team Providers Care Sliver Lap Machine Tender Name Role Phone MISS Isabel Johansen Primary Care Provider [phone] REASON FOR VISIT BH F/U Encounters Encounter Location Date Provider Diagnosis [facility] Services [address] [facility] [place] [address] 12/05/2024 Isabel Johansen Plan Of Treatment No Information Progress Notes * CLEVELAND HOLMANADOB: 0 (54 yo F)Acc No.[id number]:12/05/2024 BH F/U - Patient Patient: Mary VALENTINE ADI :?RASHEED Simons, NELIDA-SDOB:1970 ???Age:54 Y???Sex:FemaleDate:12/05/2024Phone:[phone]:[address] [place] [phone] Subjective: * Chief Complaints: * B H F/U Billing Information: * Procedure Codes: Care Plan Details* * Electronic signature of Isabel NELIDA Johansen on 05/27/2025 at 02:42 PM EST Sign off status: Pending * Provider: RASHEED Presley LISW-Rivka Date: 0 12/05/2024 Generated for Printing/Faxing/eTransmitting on:?05/27/2025 02:42 PM EST
--- OUTSIDE RECORDS SUMMARY | 2025-05-27 14:41 | XMS_ITS | Patient Health Record ---
Author Organization [facility] Address [address] [place] [address] Care Team Providers Care Factory Focus Technician Name Role Phone MISS Isabel Johansen Primary Care Provider Briseyda Willis Unavailable [phone] Jony Steven Unavailable [phone] Zheng, MS. Hernandez Unavailable [phone] Reason For Referral No Information Problems Problem Type SNOMED Code ICD Code Onset Dates Problem Status W/U Status Risk Notes Problem Posttraumatic stress disorder (4 0912064) Post traumatic stress disorder (PTSD) (F43.10) Activeconfirmed Encounters Encounter Location Date Provider Diagnosis [facility] [address] [place] [address] 05/28/2024 Isabel Johansen [facility] [place] [place] [address]/20/2024 [facility] [place] [address] 07/08/2024[facility] [place] [address]Isabel Zuleta traumatic stress disorder (PTSD) F43.10 [facility] [place] [address]/09/2024 Isabel Zuleta traumatic stress disorder (PTSD) F43.10[facility] [address] [place] [address]Isabel Zuleta traumatic stress disorder (PTSD) F43.10[facility] [place] [address]/Katelyn MillerPost traumatic stress disorder (PTSD) F43.10[facility] [place] [address] 09/23/2024Katelyn MillerPost traumatic stress disorder (PTSD) F43.10[facility] [place] [address]/Katelyn MillerPost traumatic stress disorder (PTSD) F43.10[facility] [place] [address]/01/2025Katelyn MillerPost traumatic stress disorder (PTSD) F43.10[facility] [place] [address]/11/2024Katelyn MillerPost traumatic stress disorder (PTSD) F43.10[facility] [place] [address] 11/25/2024Katelyn MillerPost traumatic stress disorder (PTSD) F43.10 [...] Date ANTHEM MEDIBLUE DUAL-ELIGB LE [address] [place] [address] [id number] ADI HOLMAN Self - patient is the insured 5 [facility]ICA[facility] SECONDARYPO [address] [place] [phone] [id number], RHONDASelf - patient is the [id number] 2024[facility] [address] [place] MUNIZ [phone], RHONDASelf - patient is the [id number] 2023MEDICARE CGS1 [facility] EVY FANG [id number], RHONDASelf - patient is the insured 2023
--- OUTSIDE RECORDS SUMMARY | 2025-05-27 14:42 | XMS_ITS | Encounter Summary ---
Author Organization [facility] Address [address] [place] [address] Care Team Providers Care Suggestion Clerk Name Role Phone Jus Sprague DO Primary Care Provider [phone] Jesus Green Unavailable Guillermina Martínez DO Unavailable [phone] Encounter Details DateTypeDepartmentCare Team (Latest Contact Info)Hajemrqvfms19/04/2025Abstract [facility] [address] [place] [address] Sarmad Martins, DPM FACFAS [address] [place] [address] Social History Tobacco UseTypesPacks/DayYears UsedDateSmoking Tobacco: NeverSmokeless [...] relatives?Once a week05/01/2023How often do you attend evangelical or hinduism services?Never05/01/2023o you belong to any clubs or organizations such as evangelical groups, unions, [employer] or athletic groups, or school groups?No05/01/2023How often do you attend meetings of the clubs or organizations you belong to?Never05/01/2023re you , , , , never , or living with a partner?Living with rqlkojo8105/01/2023 AUDIT-CAnswerDate RecordedQ1: How often do you have [...] now)?No05/01/2023CommentsUnknownSex and Gender InformationValueDate RecordedSex Assigned at MexrzVgqhch40/19/2023 2:19 PM EDT Legal GycZazrew74/15/2023 6:45 PM EDTGender UuxfaemtGwhmny30/19/2023 2:19 PM EDT Sexual OrientationNot on filedocumented as of this encounter Plan of Treatment DateTypeDepartmentCare Team (Latest Contact Info)Zwbzbclcjnt15/30/2025 2:15 PM ESTOffice Visit [facility] [address] [place] [address] Judith Garnett DO [address] [place] [address] documented as of this encounter Goals GoalPatient [...] DO [address] [place] [address] PCP - GeneralFamily Medicine11/22/22 Jesus Green PA [address] [address] Physician AssistantFamily Medicine03/20/24 Guillermina Martínez DO [address] [place] [address] Pulmonary Disease03/20/24documented as of this encounter
--- OUTSIDE RECORDS SUMMARY | 2025-05-27 14:42 | XMS_ITS | Clinical Summary ---
Author Organization [facility] Address [address] [place] [address] Phone Care Team Providers Care Metal Engraver Name Role Phone Jesus Green Primary Care Provider [phone] Allergies Active AllergyReactionsCriticalityNoted CxjySghptjzyIdxqyoyujllNorfs71/02/2024 PenicillinsHives,Unknown,GxhlCpyk54/05/2023 Medications MedicationSigDispense QuantityRefillsLast FilledStart DateEnd DateStatus carvedilol [...] 2 puffs every 4 hours if needed.09/04/2023ctive zffnvqjsmoc-wmtwtzrnw-gvjrhqpw (Trelegy Ellipta) 100-62.5-25 mcg blister with device Inhale 1 puff once daily.03/20/2024ctive insulin glargine (Lantus Solostar U-100 Insulin) 100 unit/mL (3 mL) pen INJECT UNDER THE SKIN 13 UNITS TWO TIMES A DAY FZPGNTLS94/06/2023ctive insulin lispro (HumaLOG) 100 unit/mL injection 1:5 [...] Problems ProblemNoted DateDiagnosed DateSleep apnea09/03/2024MI 40.0-44.9, adult 09/03/20242115Verhyadu97/02/2024Essential jsntddgjoehq70/02/2024KD (chronic kidney disease)04/17/2024OPD (chronic obstructive pulmonary disease)04/17/2024 Shortness of yhnrre3404/17/20248966Fptrc35/02/2024 Resolved Problems ProblemNoted DateDiagnosed DateResolved DateBMI 38.0-38.9,adult04/17/2024 09/03/2024 Family History Medical HistoryRelationNameCommentsNo Known ProblemsBrotherDiabetes type IFather LeukemiaMotherSeizuresMotherstomach issuesSisterRelationNameStatusComments BrotherFatherMotherDeceasedSister Social History Tobacco UseTypesPacks/DayYears UsedDateSmoking Tobacco: NeverSmokeless Tobacco: NeverAlcohol UseStandard Drinks/WeekCommentsNot Currently0 (1 standard drink = 0.6 oz pure alcohol)CommentsUnknownSex and Gender InformationValueDate RecordedSex Assigned at BirthNot on fileLegal NgwGgjftj72/25/2024 9:25 AM EDT Gender IdentityNot on fileSexual OrientationNot on file Last Filed Vital Signs Vital SignReadingTime TakenCommentsBlood Dfqwmidz560/1835809/03/2024 3:22 PM EST Kvorw860409/03/2024 3:22 PM ESTTemperature--Respiratory Rate--Oxygen Saturation-- Inhaled Oxygen Concentration--Ogykjj063 kg (263 lb 12.8 oz)09/03/2024 3:22 PM MVCRtfpdr341.2 cm (5' 7 )09/03/2024 3:22 PM ESTBody Mass Index41.32009/03/2024 3:22 PM EST Plan of Treatment Health MaintenanceDue DateLast DoneCommentsCT Npjcrkillwpu83/11/1970Colonoscopy 1969Colorectal Cancer Whkdabyci30/11/1970Diabetes: Hemoglobin A1C 1969FIT-DNA (Cologuard)1969FIT1969HIV Luwbpkeqc23/11/1970 Medicare Annual Wellness Visit (AWV)1969 7386Wtjuamcrporzh32/11/1970MMR Vaccines (1 of 1 - Standard series)1970Diabetes: Retinopathy Screening 09/25/1979Hepatitis C Resgertfd13/11/1988Hepatitis B Vaccines (1 of 3 - 19+ 3- dose series)1988Pneumococcal Vaccine (1 of 2 - PCV)1988Cervical Cancer Jxtztzlpf91/11/1991HPV/Xgbibg8409/24/1990Pap Smear1990Zoster Vaccines (1 of 2)09/25/2019Diabetes: Urine Protein Uvzfgwpxq64Influenza Vaccine (#1)2025Lipid Panel/OVID-19 Vaccine (3 - season)2021, 12/25/20200738Wcersmynn06/14/405084/, 09/27/2024, 05/16/2023, Additional history existsDTaP/Tdap/Td Vaccines (2 [...] Jesus Green PA [address] [address] PCP - GeneralFamily Nekqghcy16/2/24
--- OUTSIDE RECORDS SUMMARY | 2025-05-27 14:42 | XMS_ITS | Encounter Summary ---
Author Organization [facility] Address [address] [place] [address] Care Team Providers Care Peripheral Edp Equipment Operator Name Role Phone Jus Sprague DO Primary Care Provider [phone] Jesus Green PA Unavailable Guillermina Martínez DO Unavailable [phone] Encounter Details DateTypeDepartmentCare Team (Latest Contact Info)Rpghzvosigr76/31/2025Abstract [facility] [address] [facility] [address] [place] [address] Judith Garnett, DO [address] [facility] [address] [place] [address] Social History Tobacco UseTypesPacks/DayYears UsedDateSmoking Tobacco: NeverSmokeless [...] relatives?Once a week05/01/2023How often do you attend islam or zoroastrian services?Never05/01/2023o you belong to any clubs or organizations such as islam groups, unions, [employer] or athletic groups, or school groups?No05/01/2023How often do you attend meetings of the clubs or organizations you belong to?Never05/01/2023re you , , , , never , or living with a partner?Living with htuektg9705/01/2023 AUDIT-CAnswerDate RecordedQ1: How often do you have [...] now)?No05/01/2023CommentsUnknownSex and Gender InformationValueDate RecordedSex Assigned at RsuaeEpuzmq81/19/2023 2:19 PM EDT Legal EwtRrnlpp08/15/2023 6:45 PM EDTGender BbrxlapyBfvchz44/19/2023 2:19 PM EDT Sexual OrientationNot on filedocumented as of this encounter Plan of Treatment DateTypeDepartmentCare Team (Latest Contact Info)Vrvwxmlbncw40/30/2025 2:15 PM ESTOffice Visit [facility] [place] [facility] [address] [place] [address] Judith Garnett DO [address] [place] [address] documented as of this encounter Goals GoalPatient [...] DO [address] [place] [address] PCP - GeneralFamily Medicine11/22/22 Jesus Green PA [address] [place] [address] Physician AssistantFamily Medicine03/20/24 Guillermina Martínez DO [address] [place] [address] Pulmonary Disease03/20/24documented as of this encounter
--- OUTSIDE RECORDS SUMMARY | 2025-05-27 14:42 | XMS_ITS | Clinical Summary ---
Author Organization [facility] Address [address] [place] [address] Care Team Providers Care Tire Changer Name Role Phone Jus Sprague DO Primary Care Provider [phone] Jesus Green Unavailable Guillermina Martínez DO Unavailable [phone] Allergies Active AllergyReactionsCriticalityNoted DateCommentsAmoxicillin-Pot Clavulanate HtbqIsx8511/18/2022arbamide Gbkohugw71/27/6769FjzovurtdorRcpxyJlo97/05/2023 Mold - ears YfwoadcbunaudmHtgldWnv58/05/2023 Mold - ears EddinlipqqxOptrGvr65/05/2023 Medications MedicationSigDispense QuantityRefillsLast FilledStart DateEnd DateStatus acetaminophen [...] with long- term current use of insulin ([facility])Injection subcutaneous 5 times a day 200 each [...] tablet (500 mg) before bedtime. 180 tablet 305//[id number]/6Active lidocaine (Uro-Jet) 2 % gel Indications:Chronic foot ulcer, right, with necrosis of muscle ([facility])Insert into the urethra if needed for mild pain 60 mL 5Active Tirzepatide (Mounjaro) 7.5 MG/0.5ML solution auto-injector Indications:Type 2 diabetes mellitus with Charcot joint arthropathy ([facility])Inject 7.5 mg under the skin 1 (one) time per week 6 mL 5Active montelukast (Singulair) 10 MG tablet Indications:Allergic rhinitis, unspecified seasonality, unspecified triggerTake 1 tablet (10 mg) by mouth at bedtime 90 tablet 3065Active sertraline (Zoloft) 100 MG tablet Indications:AnxietyTAKE 1 TABLET BY MOUTH DAILY 90 tablet 1075Active Uuykssokurs-Qvnjkrvpb-Qixomp (Trelegy Ellipta) 100-62.5-25 MCG/ACT aerosol powder Indications:Obstructive airway disease (HCC)INHALE 1 PUFF BY MOUTH DAILY 60 each 505Active Continuous Glucose Sensor (FreeStyle Leyla 3 Plus Sensor) [facility] Indications:Type 2 diabetes mellitus with Charcot joint [...] for 10 days. 20 tablet /Expired HYDROcodone-acetaminophen ([place]) 5-325 MG tablet Indications:Ulcer of right foot with fat layer exposed (HCC)Take 1 tablet by mouth every 6 (six) hours if needed for severe pain for up to 5 days 20 tablet /Expired Active Problems ProblemNoted DateDiagnosed DateType 2 diabetes mellitus with hyperglycemia, with long-term current use of aozolnv3712/13/2024Type 2 diabetes mellitus with stage 3b chronic kidney disease, with long-term current use of phmoyru2912/13/2024Stage 3 chronic kidney bxkuucv5710/01/2024Low kxcahsafmh39/18/2025Symptomatic anemia 10/01/2024Foreign body in right foot10/01/2024hronic ulcer of right foot with necrosis of ohvizj6610/01/2024MI 40.0-44.9, adult09/03/2024Sleep apnea09/03/2024 CKD (chronic kidney disease)04/17/20249077Bmgjp60/02/2024Shortness of breath 04/17/2024Essential rmgnmeutajcv55/02/9105Ihmwdbjrpg37/27/2024Osteomyelitis 03/12/2024osttraumatic stress xpcegqxd21/27/2024ellulitis of foot, right 01/08/2024Ulcer of toe of right foot01/08/2024ellulitis of right leg01/08/2024 TAYLOR (acute kidney injury)12/21/2023OPD (chronic obstructive pulmonary disease) 12/21/20231277Vpoiecuspzcb31/06/2024cute kidney gelhrl8512/21/2023alculus of gallbladder without cholecystitis without vshxyzvruyf98/01/2024holelithiasis without rsitcudfsqt36/01/2024llergic xpitdulz80/05/0362Lyhgtws39/05/2023harcot arthropathy of dmounyh0611/18/2022Type 2 diabetes mellitus with Charcot joint bcqejnltqwk74/05/2023 Assessment & Plan (04/16/2025 4:41 PM EDT): [...] vomiting, diarrhea, or reflux. Deformity of right foot11/18/20222719Vykvrsmwpg82/05/2023iabetic polyneuropathy associated with type 2 diabetes uxzynqma39/05/2023 Assessment & Plan (04/21/2023 12:36 PM EDT): [...] increase insulin to try and improve control. Cmxcqnwu23/05/2023Moderate nonproliferative diabetic retinopathy of both eyes with macular edema associated with type2 diabetes ijmrlsob53/05/2023lass 2 severe obesity due to excess calories with serious comorbidity and body mass index (BMI) of35.0 to 35.9 in adult11/18/2022Nuclear senile hwedncoq41/05/2023 Jrjcxrmbvn17/05/2023Restless legs dkbnnufp07/05/2023Restless legs11/18/2022Not bearing weight on lower ujcsgbgns89/22/2020Open wound of foot08/07/2019Diabetic foot ulcer04/05/2019 Resolved Problems ProblemNoted DateDiagnosed DateResolved DateDiabetes mellitus due to underlying condition with diabetic owgkkoijgrqxgv55Diabetes04/17/2024 12/13/2024Long-term insulin useLong term current use of ffvgsfk11Type 2 diabetes mellitus with hypoglycemia without comaType 2 diabetes mellitus without qfdzstgmrnahb23/05/2023 04/21/2023harcot joint of foot Overview (10/01/2024): Outside [...] orreflux. Polyneuropathy due to type 2 diabetes lymwzgew71 Overview (10/01/2024): Outside Source Comment: Last Assessment [...] associated with type 2 diabetes mellitus Foot gsjodcehq60 Encounters DateTypeDepartmentCare AazaYajsrsdvmkh98/04/2025bstract [facility] [address] [place] [address] Sarmad Martins DPM FACFAS 05/16/2025bstract [facility] [address] [place] [address] Judith Garnett, DO 05/16/2025bstract [facility] [address] [place] [address] Judith Garnett, DO 05/09/2025Refill [facility] [address] [place] [phone] Sarmad Martins, DPM FACFAS Ulcer of right foot with fat layer exposed (HCC) (Primary Dx)05/06/2025 11:30 AM EDTAncillary Procedure [facility] [address] [place] [phone] Pain and swelling of left lower leg05/06/2025 11:00 AM EDTOffice Visit [facility] [address] [place] [address] Jesus Green, PA Type 2 diabetes mellitus with Charcot joint arthropathy (HCC) (Primary Dx); Psychophysiological insomnia; Sciatica of left side; Primary hypertension; Gastroesophageal reflux disease without esophagitis; Gait instability; 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); Pain and swelling of right lower jnjttxmok09/21/2025Results Follow-Up [facility] [address] [place] [address] Jesus Green, PA Vascular US lower extremity venous duplex right05/06/2025Orders Only [facility] [address] [place] [address] Jesus Green, PA Cellulitis of right lower extremity (Primary Dx)05/06/2025bstract [facility] [address] [place] [address] Sarmad Martins R, DPM FACFAS 05/06/2025amboo flowsheet [facility] [address] [place] [address] Jesus Green, PA 05/06/20257088Qfcpih20/20/2025Telephone [facility] [address] [facility] [phone] Elena Damico RN Dqxwgegwcaq39/17/2025Telephone [facility] [address] [place] [phone] Dolce, Sarmad R, DPM FACFAS 04/30/2025bstract [facility] [address] [place] [address] Dolce, Sarmad R, DPM FACFAS 04/25/2025bstract [facility] [address] [place] [address] Dolce, Sarmad R, DPM FACFAS 04/15/2025 3:15 PM EDTOffice Visit [facility] [address] [facility] [place] [phone] Judith Garnett DO Diabetic polyneuropathy associated with [...] index (BMI) of35.0 to 35.9 in adult ([facility])04/15/2025amboo flowsheet [facility] [address] [facility] [address] Judith Garnett DO 04/15/20255006Dznehu94/26/2025 11:00 AM EDTOffice Visit [facility] [address] [facility] [address] Jesus Green, PA Psychophysiological insomnia; Sciatica of left side; Anxiety; Moderate episode of recurrent major depressive disorder (HCC)04/11/2025Travel 04/11/2025Refill [facility] [address] [place] [address], [place] [address] Sarmad Martins, DPM FACFAS Ulcer of right foot with fat layer exposed (HCC) (Primary Dx)04/10/2025[facility]stract [facility] [address] [place] [address] Sarmad Martins R, DPM FACFAS 03/27/2025Refill [facility] [address] [place] [address] Jus Sprague, DO Primary rugxzhxedmkz50/10/2025Refill [facility] [address] [place] [address] Jus Sprague, DO Diabetic polyneuropathy associated with type 2 diabetes mellitus (HCC)03/12/2025 11:20 AM EDTOffice Visit [facility] [address] [place] [address] Jesus Green, PA Anxiety (Primary Dx); Moderate episode of recurrent major depressive disorder (HCC); Frequency of urination; Psychophysiological insomnia; Diabetic ulcer of left foot associated with type 2 diabetes mellitus, with bone involvement withoutevidence of necrosis, unspecified part of foot (HCC) 03/12/2025amboo flowsheet [facility] [address] [place] [address] Jesus Green PA 03/12/20252885Oioxhh17/26/2025Telephone [facility] [address] [place] [address] Judith Garnett, DO Appointment Jpcmgyx7903/10/2025Refill [facility] [address] [place] [address], [place] [phone] Sarmad Martins R, DPM FACFAS Ulcer of right foot with fat layer exposed (HCC) (Primary Dx)03/07/2025Refill [facility] [address] [place] [address] Jesus Green PA Psychophysiological insomnia; Sciatica of left side03/07/2025RefFormerly [facility] [address] [place] [address] Judith Garnett, DO Type 2 diabetes mellitus with Charcot joint arthropathy (HCC)03/07/2025RefFormerly [facility] [address] [place] [address] Jus Sprague, DO Primary azzcnqiylqur36/21/2025[facility] [place] [address] Dolce, Sarmad R, DPM FACFAS Ulcer of right foot with fat layer exposed (HCC) (Primary Dx)02/28/2025bstract [facility] [address] [place] [address] Dolce, Sarmad R, DPM FACFAS 02/28/2025bstract [facility] [address] [place] [address] Dolce, Sarmad R, DPM FACFAS 02/27/2025RefFormerly [facility] [address] [place] [address] Jesus Green PA Psychophysiological jxrbznho50/13/2025bstract [facility] Podiatr[address] [place] [address] Dolce, Sarmad R, DPM FACFAS 02/24/2025Telephone [facility] [address] [place] [address] Dolce, Sarmad R, DPM FACFAS 02/24/2025bstract [facility] [address] [place] [address] Jus Sprague, DO from Last 3 Months Immunizations ImmunizationAdministration DatesNext OnfMyhu0203/18/2019 Family History Medical HistoryRelationNameCommentsNo Known ProblemsBrotherCOPDFatherRon Suzi [...] relatives?Once a week05/01/2023How often do you attend worship or adventist services?Never3Do you belong to any clubs or organizations such as worship groups, unions, fraternal or athletic groups, or school groups?No05/01/2023How often do you attend meetings of the clubs or organizations you belong to?Never05/01/2023re you , , , , never , or living with a partner?Living with fckeivl9605/01/2023 AUDIT-CAnswerDate RecordedQ1: How often do you have [...] steady place to sleep or slept in [facility] (including now)?No3CommentsUnknownSex and Gender InformationValueDate RecordedSex Assigned at GrkiyQzumcr55/19/2023 2:19 PM EDT Legal DqkKrjctx34/15/2023 6:45 PM EDTGender EtbbuuyeUcoqgj12/19/2023 2:19 PM EDT Sexual OrientationNot on file Last Filed Vital Signs Vital SignReadingTime TakenCommentsBlood Gntuisps365/8805/06/2025 11:12 AM EDT Beiyz767105/06/2025 11:12 AM PVQRhptbeghuac60.5 ??C (95.9 ??F)05/06/2025 11:12 AM EDTRespiratory Rate--Oxygen Aqqqkjljad62%05/06/2025 11:12 AM EDTInhaled Oxygen Concentration--Nctwxv850 kg (226 lb 12.8 oz)05/06/2025 11:12 AM IBOCttbml124.2 cm (5' 7 )05/06/2025 11:12 AM EDTBody Mass Index35.5205/06/2025 11:12 AM EDT Plan of Treatment DateTypeDepartmentCare Team (Latest Contact Info)Tyyfgtwriwv88/30/2025 2:15 PM ESTOffice Visit [facility] [address] [place] [address] Judith Garnett, DO [address] [place] [address] Health MaintenanceDue DateLast DoneCommentsCT Etnrikwabqvf37/11/1970Colonoscopy 1969Colorectal Cancer Wnpggohez15/11/1970FIT-DNA1969FIT1969 FOBT1969 3997Htzcunshwefel27/11/1970Pneumococcal Vaccine: Pediatrics (0 to 5 Years) and At-Risk Patients (6 to 64 Years) (1 of 2 - PCV)1988Pap Smear 1990Cervical Cancer Qukiyoeel84/11/2000HPV/Jaqtro0909/25/1999Diabetes: Urine Protein Eiriikyrs25/31/842937, 04/20/2022OVID-19 Vaccine ( season)/03/2021, 12/25/2020Influenza Vaccine (#1)2025Medicare Annual Wellness (AWV), 3Diabetes: Hemoglobin A1C , 12/11/2024, 10/02/2024, Additional history existsMammogram 6009/27/2024, 3Diabetes: Retinopathy Acdgezutz43/20/2026 10/03/2024, 09/19/2024, 08/01/2024, Additional history exists Goals GoalPatient Goal TypeAssociated ProblemsRecent ProgressPatient-Stated?Author Help patient manage antidepressant medication Care PlanPatient on antidepressant monitoring Jesus Machado PA Procedures Procedure NamePriorityDate/TimeAssociated DiagnosisCommentsVASC US LOWER EXTREMITY VENOUS DUPLEX JAIPMVlbqbfo33/21/2025 12:01 PM EDT Pain and swelling of left lower leg POCT GLYCOSYLATED HEMOGLOBIN (HGB A1C)Bnfmkhm4104/15/2025 3:28 PM EDT Type 2 diabetes mellitus with Charcot joint arthropathy (HCC) POCT URINALYSIS BUZHOHGDZidjgvf95/27/2025 12:49 PM EDT Frequency of urination DIABETIC RETINOPATHY SCREENING - OU - BOTH OJFTUnoceli84/20/2025 4:16 PM EDTBI MAMMOGRAM SCREENING TOMOSYNTHESIS WNPVSWDHBSmjhwnz49/14/2025 8:22 AM EDT Encounter for screening mammogram for malignant neoplasm of breast MICROALBUMIN / CREATININE URINE VBNISXeqaqkb41/31/2023 8:07 AM EDT from Last 3 Months or Most Recently Relevant to Health Maintenance Results * Vascular US lower extremity venous duplex right (05/06/2025 12:01 PM EDT) Anatomical RegionLateralityModalityLower ExtremitiesUltrasoundSpecimen (Source)Anatomical Location / LateralityCollection Method / VolumeCollection TimeReceived Time05/06/2025 3:24 PM EDT Impressions 05/06/2025 3:33 PM EDT NO RIGHT LOWER EXTREMITY DVT IDENTIFIED. ELECTRONICALLY SIGNED BY: Alcides Lincoln MD [facility] 05/06/2025 3:33 PM EDT EXAM: [facility] [...] Lincoln MD Authorizing ProviderResult TypeResult Sree Green PAIMG US PROCEDURES Final Result * POCT glycosylated hemoglobin (Hb A1C) docked device (04/15/2025 3:28 PM EDT) ComponentValueRef RangeTest MethodAnalysis TimePerformed AtPathologist SignatureHemoglobin A1C12.2Specimen (Source)Anatomical Location / Laterality Collection Method / VolumeCollection TimeReceived TimeBloodVenous blood specimen / Vdhxnvt7204/15/2025 3:28 PM EDT Narrative Authorizing ProviderResult TypeResult StatusJudith Garnett DOPOINT OF CARE TEST ENTER/EDIT ORDERABLESFinal [...] / LateralityCollection Method / VolumeCollection Time Received DwzmEcamq02/27/2025 12:49 PM EDT Narrative Authorizing ProviderResult TypeResult Sree Green PAPOINT OF CARE TEST ENTER/EDIT ORDERABLESFinal Result * (ABNORMAL) Diabetic Retinopathy Screening - OU - Both Eyes (10/03/2024 4:16 PM EDT)Anatomical RegionLateralityModalityHeadOther Narrative Authorizing ProviderResult TypeResult StatusJus GOMEZ PHOTOGRAPHY Final Result * Bilateral screening [...] Jose R Cano M.D. Authorizing ProviderResult TypeResult StatusJesus Green [facility] BI PROCEDURES Final Result * (ABNORMAL) Microalbumin / creatinine urine ratio (05/16/2023 8:07 AM EDT) ComponentValueRef RangeTest MethodAnalysis TimePerformed AtPathologist SignatureCREATININE, RANDOM OLFEP06318 - 275 mg/dLQUESTALBUMIN, URINE6.9See Note: mg/dLQUESTComment: Reference [...] Performing Organization Information ?Site ID: [id number] ?Name: [facility] ?Address: [address] [place] [phone] ?Director: Cristi Kelly MD Authorizing ProviderResult TypeResult StatusJesus DAUGHERTY URINE ORDERABLES Final ResultPerforming OrganizationAddressCity/State/ZIP CodePhone Number [facility] from Last 3 Months or Most Recently Relevant to Health Maintenance Additional Health Concerns Active ProblemsNoted DateDiagnosed DatePatient on antidepressant monitoring plan 12/11/2024 Insurance Care Teams Team MemberRelationshipSpecialtyStart DateEnd Date Jus Sprague DO [address] [place] [address] PCP - GeneralFamily Medicine11/22/22 Jesus Green, CATHY [address] [place] [address] Physician AssistantFamily Medicine03/20/24 Guillermina Martínez DO [address] [place] [address] Pulmonary Disease03/20/24
--- OUTSIDE RECORDS SUMMARY | 2025-05-27 14:42 | XMS_ITS | Encounter Summary ---
Author Organization [facility] Address [address] [place] [address] Care Team Providers Care Machinery Engineer Name Role Phone Jus Sprague DO Primary Care Provider [phone] Jesus Green PA Unavailable Guillermina Martínez DO Unavailable [phone] Encounter Details DateTypeDepartmentCare Team (Latest Contact Info)Aiohdbovvey72/31/2025Abstract [facility] [address] [facility] [address] [place] [address] Judith Garnett, DO [address] [facility] [address] [place] [address] Social History Tobacco UseTypesPacks/DayYears UsedDateSmoking Tobacco: NeverSmokeless [...] relatives?Once a week05/01/2023How often do you attend gnosticism or baptist services?Never05/01/2023o you belong to any clubs or organizations such as gnosticism groups, unions, Educreations or athletic groups, or school groups?No05/01/2023How often do you attend meetings of the clubs or organizations you belong to?Never05/01/2023re you , , , , never , or living with a partner?Living with anvphho3005/01/2023 AUDIT-CAnswerDate RecordedQ1: How often do you have [...] now)?No05/01/2023CommentsUnknownSex and Gender InformationValueDate RecordedSex Assigned at HvcikRiunsq24/19/2023 2:19 PM EDT Legal RhgLsviel56/15/2023 6:45 PM EDTGender DlqcusxbWqouhi79/19/2023 2:19 PM EDT Sexual OrientationNot on filedocumented as of this encounter Plan of Treatment DateTypeDepartmentCare Team (Latest Contact Info)Nnmgoqmacks56/30/2025 2:15 PM ESTOffice Visit [facility] [address] [place] [address] Judith Garnett DO [address] [place] [address] documented as of this encounter Goals GoalPatient [...] DO [address] [place] [address] PCP - GeneralFamily Medicine11/22/22 Jesus Green PA [address] [place] [address] Physician AssistantFamily Medicine03/20/24 Guillermina Martínez DO [address] [facility] [place] [address] Pulmonary Disease03/20/24documented as of this encounter
== END 2025-05-27 14:38 | disposition home or self-care (01) ==
LOC: WC 14:37
PROVIDERS: PCP Physician Assistant; Visit Provider Physician Assistant
DX: E11.621 Type 2 diabetes mellitus with foot ulcer (principal); L97.412 Non-pressure chronic ulcer of right heel and midfoot with fat layer exposed; L89.91 Pressure ulcer of unspecified site, stage 1
CPT/HCPCS: G0463

== ENCOUNTER 2025-06-10 15:09 | Outpatient (OUT) | payer MEDICARE, SELFPAY ==
--- OUTSIDE RECORDS SUMMARY | 2024-09-03 10:30 | XMS_ITS ---
Author Organization [facility] Servic es Address [address] [facility] [place] [address] Care Team Providers Care Household Appliance Mechanic Name Role Phone MISS Isabel Johansen Primary Care Provider REASON FOR VISIT BH F/U Encounters Encounter Location Date Provider Diagnosis [facility] [address] [facility] [place] [address] 09/03/2024 Isabel Johansen Plan Of Treatment No Information Progress Notes * C[place]AND HOLMANADOB: 0 (54 yo F)Acc No.[id number]:09/03/2024 BH F/U - Patient Patient: Mary VALENTINE ADI :?RASHEED Simons LISW-SDOB:1970 ???Age:53 Y???Sex:FemaleDate:09/03/2024Phone:[phone]:[address] [place] [address] Subjective: * Chief Complaints: * B H F/U Care Plan Details* * Electronic signature of Isabel NELIDA Johansen on 06/10/2025 at 03:12 PM EST Sign off status: Pending * Provider: RASHEED Presley LISW-Rivka Date: 0 09/03/2024 Generated for Printing/Faxing/eTransmitting on:?06/10/2025 03:12 PM EST
--- OUTSIDE RECORDS SUMMARY | 2024-09-16 05:00 | XMS_ITS ---
Author Organization [facility] Servic es Address [address] [facility] [place] [address] Care Team Providers Care Oral And Maxillofacial Surgery Resident Name Role Phone MISS Isabel Johansen Primary Care Provider REASON FOR VISIT BH F/U Encounters Encounter Location Date Provider Diagnosis [facility] [address] [facility] [place] [address] 09/16/2024 Isabel Johansen Plan Of Treatment No Information Progress Notes * CLEVELAND HOLMANADOB: 0 (54 yo F)Acc No.[id number]:09/16/2024 BH F/U - Patient Patient: Mary VALENTINE ADI :?RASHEED Simons, NELIDA-SDOB:1970 ???Age:53 Y???Sex:FemaleDate:09/16/2024Phone:[phone]:[address] [place] [phone] Subjective: * Chief Complaints: * B H F/U Billing Information: * Procedure Codes: Care Plan Details* * Electronic signature of Isabel NELIDA Johansen on 06/10/2025 at 03:12 PM EST Sign off status: Pending * Provider: RASHEED Presley LISW-Rivka Date: 0 09/16/2024 Generated for Printing/Faxing/eTransmitting on:?06/10/2025 03:12 PM EST
--- OUTSIDE RECORDS SUMMARY | 2024-11-04 10:00 | XMS_ITS ---
Author Organization [facility] Servic es Address [address] [facility] [place] [address] Care Team Providers Care Staple Processing Machine Operator Name Role Phone MISS Isabel Johansen Primary Care Provider REASON FOR VISIT BH F/U Encounters Encounter Location Date Provider Diagnosis [facility] [address] [facility] [place] [address] 11/04/2024 Isabel Johansen Plan Of Treatment No Information Progress Notes * CLEVELAND HOLMANADOB: 0 (54 yo F)Acc No.[id number]:11/04/2024 BH F/U - Patient Patient: Mary VALENTINE ADI :?RASHEED Simons, NELIDA-SDOB:1970 ???Age:54 Y???Sex:FemaleDate:11/04/2024Phone:[phone]:[address] [place] [phone] Subjective: * Chief Complaints: * B H F/U Billing Information: * Procedure Codes: Care Plan Details* * Electronic signature of Isabel NELIDA Johansen on 06/10/2025 at 03:12 PM EST Sign off status: Pending * Provider: RASHEED Presley LISW-Rivka Date: 0 11/04/2024 Generated for Printing/Faxing/eTransmitting on:?06/10/2025 03:12 PM EST
--- OUTSIDE RECORDS SUMMARY | 2024-12-05 11:00 | XMS_ITS ---
Author Organization [facility] Servic es Address [address] [facility] [place] [address] Care Team Providers Care Cork Tipper Name Role Phone MISS Isabel Johansen Primary Care Provider REASON FOR VISIT BH F/U Encounters Encounter Location Date Provider Diagnosis [facility] Services [address] [facility] [place] [address] 12/05/2024 Isabel Johansen Plan Of Treatment No Information Progress Notes * CLEVELAND HOLMANADOB: 0 (54 yo F)Acc No.[id number]:12/05/2024 BH F/U - Patient Patient: Mary VALENTINE ADI :?RASHEED Simons, NELIDA-SDOB:1970 ???Age:54 Y???Sex:FemaleDate:12/05/2024Phone:[phone]:[address] [place] [phone] Subjective: * Chief Complaints: * B H F/U Billing Information: * Procedure Codes: Care Plan Details* * Electronic signature of Isabel NELIDA Johansen on 06/10/2025 at 03:12 PM EST Sign off status: Pending * Provider: RASHEED Presley LISW-Rivka Date: 0 12/05/2024 Generated for Printing/Faxing/eTransmitting on:?06/10/2025 03:12 PM EST
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
--- OUTSIDE RECORDS SUMMARY | 2025-06-10 15:12 | XMS_ITS | Clinical Summary ---
Author Organization [facility] Address [address] [place] [address] Phone Care Team Providers Care Food Services Manager Name Role Phone Jesus Green Primary Care Provider [phone] Allergies Active AllergyReactionsCriticalityNoted NyxlSpaxkemuMdrhccombmaNluhg05/02/2024 PenicillinsHives,Unknown,AbydDeft12/05/2023 Medications MedicationSigDispense QuantityRefillsLast FilledStart DateEnd DateStatus carvedilol [...] 2 puffs every 4 hours if needed.09/04/2023ctive uiaahparfhk-ebukvlrmh-hajxzudo (Trelegy Ellipta) 100-62.5-25 mcg blister with device Inhale 1 puff once daily.03/20/2024ctive insulin glargine (Lantus Solostar U-100 Insulin) 100 unit/mL (3 mL) pen INJECT UNDER THE SKIN 13 UNITS TWO TIMES A DAY CXSBETOO43/06/2023ctive insulin lispro (HumaLOG) 100 unit/mL injection 1:5 [...] Problems ProblemNoted DateDiagnosed DateSleep apnea09/03/2024MI 40.0-44.9, adult 09/03/20247378Cbdxrzuz33/02/2024Essential cdcstbajmpkb94/02/2024KD (chronic kidney disease)04/17/2024OPD (chronic obstructive pulmonary disease)04/17/2024 Shortness of zeuuxe4104/17/20243957Xsokb55/02/2024 Resolved Problems ProblemNoted DateDiagnosed DateResolved DateBMI 38.0-38.9,adult04/17/2024 09/03/2024 Family History Medical HistoryRelationNameCommentsNo Known ProblemsBrotherDiabetes type IFather LeukemiaMotherSeizuresMotherstomach issuesSisterRelationNameStatusComments BrotherFatherMotherDeceasedSister Social History Tobacco UseTypesPacks/DayYears UsedDateSmoking Tobacco: NeverSmokeless Tobacco: NeverAlcohol UseStandard Drinks/WeekCommentsNot Currently0 (1 standard drink = 0.6 oz pure alcohol)CommentsUnknownSex and Gender InformationValueDate RecordedSex Assigned at BirthNot on fileLegal WgpOmfime26/25/2024 9:25 AM EDT Gender IdentityNot on fileSexual OrientationNot on file Last Filed Vital Signs Vital SignReadingTime TakenCommentsBlood Cxzvrhlj052/7718009/03/2024 3:22 PM EST Xsumt363009/03/2024 3:22 PM ESTTemperature--Respiratory Rate--Oxygen Saturation-- Inhaled Oxygen Concentration--Bdurlf448 kg (263 lb 12.8 oz)09/03/2024 3:22 PM WUXKdapfh130.2 cm (5' 7 )09/03/2024 3:22 PM ESTBody Mass Index41.32009/03/2024 3:22 PM EST Plan of Treatment Health MaintenanceDue DateLast DoneCommentsCT Vuzgmlaidlcn34/11/1970Colonoscopy 1969Colorectal Cancer Pazfbgppz16/11/1970Diabetes: Hemoglobin A1C 1969FIT-DNA (Cologuard)1969FIT1969HIV Lzxzbbdyh55/11/1970 Medicare Annual Wellness Visit (AWV)1969 0892Oleqlklcbgcnl13/11/1970MMR Vaccines (1 of 1 - Standard series)1970Diabetes: Retinopathy Screening 09/25/1979Hepatitis C Ruxiyhjsv87/11/1988Hepatitis B Vaccines (1 of 3 - 19+ 3- dose series)1988Pneumococcal Vaccine (1 of 2 - PCV)1988Cervical Cancer Xssvqlioj01/11/1991HPV/Isojft6909/24/1990Pap Smear1990Zoster Vaccines (1 of 2)09/25/2019Diabetes: Urine Protein Bnxlwfark43Influenza Vaccine (#1)2025Lipid Panel/OVID-19 Vaccine (3 - season)2021, 12/25/20209223Xebwyhvgw10/14/925510/, 09/27/2024, 05/16/2023, Additional history existsDTaP/Tdap/Td Vaccines (2 [...] Jesus Green PA [address] [address] PCP - GeneralFamily Kobcjzho49/2/24
--- OUTSIDE RECORDS SUMMARY | 2025-06-10 15:12 | XMS_ITS | Clinical Summary ---
Author Organization [facility] Address [address] [place] [address] Care Team Providers Care Nutritional Chemist Name Role Phone Jus Sprague DO Primary Care Provider [phone] Jesus Green Unavailable Guillermina Martínez DO Unavailable [phone] Allergies Active AllergyReactionsCriticalityNoted DateCommentsAmoxicillin-Pot Clavulanate TowqIcp8411/18/2022arbamide Palmtpxz89/27/3096NifgeomfsupHvkjjCyl94/05/2023 Mold - ears ZbceesjowrgrnnYyiylEzo09/05/2023 Mold - ears UndipofdyrfYwkrEsu13/05/2023 Medications MedicationSigDispense QuantityRefillsLast FilledStart DateEnd DateStatus acetaminophen [...] with long- term current use of insulin ([facility])Injection subcutaneous 5 times a day 200 each 4Active cetirizine (ZyrTEC) 10 MG tablet Indications:Allergic rhinitis, unspecified seasonality, unspecified triggerTake 1 tablet (10 mg) by mouth Daily as needed (q24hrs) 90 tablet 3025Active fluticasone (Cutivate) 0.005 % ointment Indications:Rash and [...] Take 25 mg by mouth in the morning.506Active metFORMIN (Glucophage) 500 MG tablet Indications:Diabetic polyneuropathy associated with type 2 diabetes mellitus (HCC)Take 1 tablet (500 mg) by mouth in the morning and 1 tablet (500 mg) before bedtime. 180 tablet 505/6Active lidocaine (Uro-Jet) 2 % gel Indications:Chronic foot ulcer, right, with necrosis of muscle ([facility])Insert into the urethra if needed for mild pain 60 mL 1055Active Tirzepatide (Mounjaro) 7.5 MG/0.5ML solution auto-injector Indications:Type 2 diabetes mellitus with Charcot joint arthropathy ([facility])Inject 7.5 mg under the skin 1 (one) time per week 6 mL 5Active montelukast (Singulair) 10 MG tablet Indications:Allergic rhinitis, unspecified seasonality, unspecified triggerTake 1 tablet (10 mg) by mouth at bedtime 90 tablet 3065Active sertraline (Zoloft) 100 MG tablet Indications:AnxietyTAKE 1 TABLET BY MOUTH DAILY 90 tablet 1075Active Fypxnjdxdop-Wxoxfejpd-Iblsif (Trelegy Ellipta) 100-62.5-25 MCG/ACT aerosol powder Indications:Obstructive airway disease (HCC)INHALE 1 PUFF BY MOUTH DAILY 60 each 5Active Continuous Glucose Sensor (FreeStyle Leyla 3 Plus Sensor) [facility] [place] Indications:Type 2 diabetes mellitus with Charcot joint [...] (max daily 50 units) 45 mL 5Active hydrALAZINE (Apresoline) 25 MG tablet Indications:Primary [...] not crush or chew. 90 capsule 5Active atorvastatin (Lipitor) 10 MG tablet Indications:Mixed hyperlipidemiaTAKE 1 TABLET BY MOUTH DAILY 90 tablet 5Active LORazepam (Ativan) 1 MG tablet Indications:Psychophysiological insomniaTake 1 tablet (1 mg) by mouth every 6 (six) hours if needed for anxiety 30 tablet 5Active furosemide (Lasix) 40 MG tablet Indications:Peripheral edemaTake 1 tablet (40 mg) by mouth Daily as needed (for edema) 30 tablet 5Active cyclobenzaprine (Flexeril) 10 MG tablet Indications:Sciatica of left sideTake 1 tablet (10 mg) by mouth 3 (three) times a day as needed for muscle spasms 30 tablet 5Active sertraline (Zoloft) 50 MG tablet Indications:AnxietyTake 1 tablet (50 mg) by mouth Daily 30 tablet /ctive zolpidem (Ambien) 10 MG tablet Indications:Psychophysiological insomniaTake 1 tablet (10 mg) by mouth as needed at bedtime for sleep 30 tablet 06/09/2025tive atorvastatin (Lipitor) 10 MG tablet Indications:Mixed hyperlipidemiaTake 1 tablet (10 mg) by mouth Daily 90 tablet /Discontinued furosemide (Lasix) 40 MG tablet Take 40 mg by mouth DailyDiscontinued(Reorder) sertraline (Zoloft) 50 MG tablet Indications:AnxietyTake 1 tablet (50 mg) by mouth Daily 30 tablet /Discontinued(Reorder) zolpidem (Ambien) 10 MG tablet Indications:Psychophysiological insomniaTake 1 tablet (10 mg) by mouth as needed at bedtime for sleep 30 tablet /Discontinued(Reorder) cyclobenzaprine (Flexeril) 10 MG tablet Indications:Sciatica of left sideTake 1 tablet (10 mg) by mouth 3 (three) times a day as needed for muscle spasms 30 tablet Discontinued(Reorder) LORazepam (Ativan) 1 MG tablet Indications:Psychophysiological insomniaTake 1 tablet (1 mg) by mouth every 6 (six) hours if needed for anxiety 30 tablet 10/21Discontinued(Reorder) sulfamethoxazole-trimethoprim (Bactrim DS) 800-160 MG per tablet Indications:Cellulitis of right lower extremityTake 1 tablet by mouth in the morning and 1 tablet before bedtime. Do all this for 10 days. 20 tablet Expired HYDROcodone-acetaminophen (Voca) 5-325 MG tablet Indications:Ulcer of right foot with fat layer exposed (HCC)Take 1 tablet by mouth every 6 (six) hours if needed for severe pain for up to 5 days 20 tablet Expired LORazepam (Ativan) 1 MG tablet Indications:Psychophysiological insomniaTake 1 tablet (1 mg) by mouth every 6 (six) hours if needed for anxiety 30 tablet Discontinued(Reorder) Active Problems ProblemNoted DateDiagnosed DateType 2 diabetes mellitus with hyperglycemia, with long-term current use of pocyrry1412/13/2024Type 2 diabetes mellitus with stage 3b chronic kidney disease, with long-term current use of qvkzqxb4412/13/2024Stage 3 chronic kidney cphxeqz7310/01/2024Low ekzbipktxy05/18/2025Symptomatic anemia 10/01/2024Foreign body in right foot10/01/2024hronic ulcer of right foot with necrosis of ydllwh1110/01/2024MI 40.0-44.9, adult09/03/2024Sleep apnea09/03/2024 CKD (chronic kidney disease)04/17/20241807Jduhq28/02/2024Shortness of breath 04/17/2024Essential /02/2792Ejbdeydudn71/27/2024Osteomyelitis 03/12/2024osttraumatic stress mdyahxnt80/27/2024ellulitis of foot, right 01/08/2024Ulcer of toe of right foot01/08/2024ellulitis of right leg01/08/2024 TAYLOR (acute kidney injury)12/21/2023OPD (chronic obstructive pulmonary disease) 12/21/20236551Tdpleuhiwmeo60/06/2024cute kidney gzswxw8312/21/2023alculus of gallbladder without cholecystitis without ludiviumeph55/01/2024holelithiasis without wedsylioycp38/01/2024llergic fpyfhyij27/05/8909Kpkglya74/05/2023harcot arthropathy of vcnnlye0411/18/2022Type 2 diabetes mellitus with Charcot joint bgghpampcvj30/05/2023 Assessment & Plan (04/16/2025 4:41 PM EDT): [...] if they have any problems or questions. Sgirid Archer is struggling to gain control of [...] vomiting, diarrhea, or reflux. Deformity of right foot11/18/20220371Ibwnhcfakz38/05/2023iabetic polyneuropathy associated with type 2 diabetes qkmleezm53/05/2023 Assessment & Plan (04/21/2023 12:36 PM EDT): [...] increase insulin to try and improve control. Pybhpnzy45/05/2023Moderate nonproliferative diabetic retinopathy of both eyes with macular edema associated with type2 diabetes hpvuiptp21/05/2023lass 2 severe obesity due to excess calories with serious comorbidity and body mass index (BMI) of35.0 to 35.9 in adult11/18/2022Nuclear senile brmfojyz30/05/2023 Efclpypeyt32/05/2023Restless legs /05/2023Restless legs11/18/2022Not bearing weight on lower rwxtohgyc48/22/2020Open wound of foot08/07/2019Diabetic foot ulcer04/05/2019 Resolved Problems ProblemNoted DateDiagnosed DateResolved DateDiabetes mellitus due to underlying condition with diabetic hxokdijzywaemc62Diabetes04/17/2024 12/13/2024Long-term insulin useLong term current use of pdovhzw14Type 2 diabetes mellitus with hypoglycemia without comaType 2 diabetes mellitus without egmmicokdxlhf97/05/2023 04/21/2023harcot joint of foot Overview (10/01/2024): Outside [...] orreflux. Polyneuropathy due to type 2 diabetes rwyamaum07 Overview (10/01/2024): Outside Source Comment: Last Assessment [...] associated with type 2 diabetes mellitus Foot orgelcbzq06 Encounters DateTypeDepartmentCare IzcjVitmyokwlmv05/24/2025Refill [facility] [address] [place] [address] Renetta Couch MA Peripheral edema (Primary Dx); Psychophysiological insomnia; Sciatica of left side; Nikrdwi5306/05/2025[facility] [address] [place] [address] Jesus Green PA Mixed gsiuibtatmebzn62/19/2025Refill [facility] [address] [place] [address] Carla Prado MA Psychophysiological okfhrmbs60/04/2025bstract [facility] [address] [facility] [address] Sarmad Martins R, DPM FACFAS 05/16/2025bstract [facility] [address] [place] [address] Judith Garnett, DO 05/16/2025bstract [facility] [address] [place] [address] Judith Garnett, DO 05/09/2025Refill [facility] [address] [place] [phone] Sarmad Martins R, DPM FACFAS Ulcer of right foot with fat layer exposed (HCC) (Primary Dx)05/06/2025 11:30 AM EDTAncillary Procedure [facility] [address] [place] [address] Pain and swelling of left lower leg05/06/2025 11:00 AM EDTOffice Visit [facility] [address] [place] [address] Jesus Green, CATHY Type 2 diabetes mellitus with Charcot joint arthropathy (HCC) (Primary Dx); Psychophysiological insomnia; Sciatica of left side; Primary hypertension; Gastroesophageal reflux disease without esophagitis; Gait instability; 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); Pain and swelling of right lower dtonvjnup41/21/2025Results Follow-Up [facility] [address] [place] [address] Jesus Green PA Vascular US lower extremity venous duplex right05/06/2025Orders Only [facility] [address] [place] [address] Jesus Green, PA Cellulitis of right lower extremity (Primary Dx)05/06/2025bstract [facility] [address] [place] [address] Dolsorin Sarmad R, DPM FACFAS 05/06/2025amboo flowsheet [facility] [address] [place] [address] Jesus Green PA 05/06/20252470Sqjtha88/20/2025Telephone [facility] [address] [place] [address] Elena Damico, RN Cgzejnreamx15/17/2025Telephone [facility] [address] [facility] [place] [phone] Dolce Sarmad R, DPM FACFAS 04/30/2025bstract [facility] [address] [place] [address] Dolce, Sarmad R, DPM FACFAS 04/25/2025bstract [facility] [address] [place] [address] Dolce, Sarmad R, DPM FACFAS 04/15/2025 3:15 PM EDTOffice Visit [facility] [address] [place] [address] Judith Garnett, DO Diabetic polyneuropathy associated with [...] index (BMI) of35.0 to 35.9 in adult ([facility])04/15/2025amboo flowsheet [facility] [address] [place] [address] Judith Garnett, 04/15/20254525Kwmarn44/26/2025 11:00 AM EDTOffice Visit [facility] [address] [place] [address] Jesus Green, PA Psychophysiological insomnia; Sciatica of left side; Anxiety; Moderate episode of recurrent major depressive disorder (HCC)04/11/2025Travel 04/11/2025[facility] [address] [place] [address], [place] [address] Sarmad Martins, DPM FACFAS Ulcer of right foot with fat layer exposed (HCC) (Primary Dx)04/10/2025bstract [facility] [address] [facility] [address] Sarmad Martins, DPM FACFAS 03/27/2025Refill [facility] [address] [place] [address] Jus Sprague, Primary nwqqmmrpejiq09/10/2025Refill [facility] [address] [place] [address] uJs Sprague, Diabetic polyneuropathy associated with type 2 diabetes mellitus (HCC)03/12/2025 11:20 AM EDTOffice Visit [facility] [address] [place] [address] Jesus Green, PA Anxiety (Primary Dx); Moderate episode of recurrent major depressive disorder (HCC); Frequency of urination; Psychophysiological insomnia; Diabetic ulcer of left foot associated with type 2 diabetes mellitus, with bone involvement withoutevidence of necrosis, unspecified part of foot (HCC) 03/12/2025amboo flowsheet [facility] [address] [place] [address] Jesus Green PA 03/12/20259326Cjsheo83/26/2025Telephone [facility] [address] [place] [address] Judith Garnett, Appointment Bqjjdrn0603/10/2025Refill [facility] [address] [place] [phone] Sarmad Martins, DPM FACFAS Ulcer of right foot with fat layer exposed (HCC) (Primary Dx)from Last 3 Months Immunizations ImmunizationAdministration DatesNext DbdTfzd8303/18/2019 Family History Medical HistoryRelationNameCommentsNo Known ProblemsBrotherCOPDFatherRon Suzi [...] relatives?Once a week05/01/2023How often do you attend pentecostal or advent services?Never05/01/2023o you belong to any clubs or organizations such as pentecostal groups, unions, fraternal or athletic groups, or school groups?No05/01/2023How often do you attend meetings of the clubs or organizations you belong to?Never05/01/2023re you , , , , never , or living with a partner?Living with yresrsv0005/01/2023 AUDIT-CAnswerDate RecordedQ1: How often do you have [...] now)?No05/01/2023CommentsUnknownSex and Gender InformationValueDate RecordedSex Assigned at GmkehXvektk93/19/2023 2:19 PM EDT Legal YsyCitpbs04/15/2023 6:45 PM EDTGender XmxjraswOcscrl79/19/2023 2:19 PM EDT Sexual OrientationNot on file Last Filed Vital Signs Vital SignReadingTime TakenCommentsBlood Zovriytz927/8805/06/2025 11:12 AM EDT Ecuvh438505/06/2025 11:12 AM KMYHowadzhuclq19.5 ??C (95.9 ??F)05/06/2025 11:12 AM EDTRespiratory Rate--Oxygen Qdnhtynppx67%05/06/2025 11:12 AM EDTInhaled Oxygen Concentration--Ooymxp424 kg (226 lb 12.8 oz)05/06/2025 11:12 AM AFVOpxftw097.2 cm (5' 7 )05/06/2025 11:12 AM EDTBody Mass Index35.5205/06/2025 11:12 AM EDT Plan of Treatment DateTypeDepartmentCare Team (Latest Contact Info)Zncbwhccots38/30/2025 2:15 PM ESTOffice Visit [facility] [address] [place] [address] Judith Garnett, [address] [place] [address] Health MaintenanceDue DateLast DoneCommentsCT Tpzookcusqfg06/11/1970Colonoscopy 1969Colorectal Cancer Rugwafcpb80/11/1970FIT-DNA1969FIT1969 FOBT1969 2319Pwswqkmqdtfin37/11/1970Pneumococcal Vaccine: Pediatrics (0 to 5 Years) and At-Risk Patients (6 to 64 Years) (1 of 2 - PCV)1988Pap Smear 1990Cervical Cancer Tpchkliag72/11/2000HPV/Kgksgk8409/25/1999Diabetes: Urine Protein Csitrhvwe56, 04/20/2022OVID-19 Vaccine ( season)/03/2021, 12/25/2020Influenza Vaccine (#1)2025Medicare Annual Wellness (AWV)/, 06/07/2024, 05/01/2023, Additional history existsDiabetes: Hemoglobin A1C/, 12/11/2024, 10/02/2024, Additional history wnhiulFlkihgkly99/14/202603/, 05/16/2023 Diabetes: Retinopathy Iopetldam61/, 09/19/2024, 08/01/2024, Additional history exists Goals GoalPatient Goal TypeAssociated ProblemsRecent ProgressPatient-Stated?Author Help patient manage antidepressant medication Care PlanPatient on antidepressant monitoring Jesus Machado PA Procedures Procedure NamePriorityDate/TimeAssociated DiagnosisCommentsVASC US LOWER EXTREMITY VENOUS DUPLEX GAJDYYqehvyx74/21/2025 12:01 PM EDT Pain and swelling of left lower leg POCT GLYCOSYLATED HEMOGLOBIN (HGB A1C)Xraxozj1304/15/2025 3:28 PM EDT Type 2 diabetes mellitus with Charcot joint arthropathy (HCC) POCT URINALYSIS NZFUEFFJQiqccml83/27/2025 12:49 PM EDT Frequency of urination DIABETIC RETINOPATHY SCREENING - OU - BOTH ASXBGkqayji85/20/2025 4:16 PM EDTBI MAMMOGRAM SCREENING TOMOSYNTHESIS HITKTKDDPXuthnxv38/14/2025 8:22 AM EDT Encounter for screening mammogram for malignant neoplasm of breast MICROALBUMIN / CREATININE URINE ZFLFBObptmdp03/31/2023 8:07 AM EDT from Last 3 Months [...] MD Narrative 05/06/2025 3:33 PM EDT EXAM: [facility] US LOWER EXTREMITY VENOUS DUPLEX RIGHT [...] Note Alcides Lincoln MD - 05/06/2025 EXAM: [facility] US LOWER EXTREMITY VENOUS DUPLEX RIGHT [...] ELECTRONICALLY SIGNED BY: Alcides Lincoln MD Authorizing ProviderUdayult TypeWalt Green PAI US PROCEDURES Final Result * POCT glycosylated hemoglobin (Hb A1C) docked device (04/15/2025 3:28 PM EDT) ComponentValueRef RangeTest MethodAnalysis TimePerformed AtPathologist SignatureHemoglobin A1C12.2Specimen (Source)Anatomical Location / Laterality Collection Method / VolumeCollection TimeReceived TimeBloodVenous blood specimen / Zmzffsy9404/15/2025 3:28 PM EDT Narrative Authorizing ProviderResult TypeWalt Garnett DOPOINT OF CARE TEST ENTER/EDIT ORDERABLESFinal [...] / LateralityCollection Method / VolumeCollection Time Received JenhIfzmm89/27/2025 12:49 PM EDT Narrative Authorizing Dakota Green PAPOINT OF CARE TEST ENTER/EDIT ORDERABLESFinal Result * (ABNORMAL) Diabetic Retinopathy Screening - OU - Both Eyes (10/03/2024 4:16 PM EDT)Anatomical RegionLateralityModalityHeadOther Narrative Authorizing ProviderResult TypeResult StatusPagregorio Tobias Darcie JASON PHOTOGRAPHY Final Result * Bilateral screening mammogram [...] ComponentValueRef RangeTest MethodAnalysis TimePerformed AtPathologist SignatureCREATININE, RANDOM [id number] - 275 mg/dLQUESTALBUMIN, URINE6.9See Note: mg/dLQUESTComment: Reference [...] Information ?Site ID: QPT ?Name: [facility] ?Address: [address] [place] [id number] ?Director: Cristi Kelly MD Authorizing ProviderResult TypeResult Sree Green PALAB URINE ORDERABLES Final ResultPerforming OrganizationAddressCity/State/ZIP CodePhone Number [facility] from Last 3 Months or Most Recently Relevant to Health Maintenance Additional Health Concerns Active ProblemsNoted DateDiagnosed DatePatient on antidepressant monitoring plan 12/11/2024 Insurance Care Teams Team MemberRelationshipSpecialtyStart DateEnd Date Jus Sprague DO [address] [place] [address] PCP - GeneralFamily Medicine11/22/22 Jesus Green PA [address] [place] [address] Physician AssistantFamily Medicine03/20/24 Guillermina Martínez DO [address] [place] [address] Pulmonary Disease03/20/24
--- OUTSIDE RECORDS SUMMARY | 2025-06-10 15:12 | XMS_ITS | Encounter Summary ---
Author Organization [facility] Address [address] [place] [address] Care Team Providers Care Adjunct Business Instructor Name Role Phone Jus Sprague DO Primary Care Provider [phone] Jesus Green Unavailable Guillermina Martínez DO Unavailable [phone] Reason for Visit * ReasonOnset DateCommentsMed Qfexbm3706/09/2025 Encounter Details DateTypeDepartmentCare Team (Latest Contact Info)Hdryqoecncg23/24/2025Refill [facility] [address] [facility] [address] [place] [address] Renetta Couch MA Peripheral edema (Primary Dx); Psychophysiological insomnia; Sciatica of left side; Anxiety Social History Tobacco UseTypesPacks/DayYears UsedDateSmoking Tobacco: NeverSmokeless [...] relatives?Once a week05/01/2023How often do you attend presybeterian or alevism services?Never05/01/2023o you belong to any clubs or organizations such as presybeterian groups, unions, [employer] or athletic groups, or school groups?No05/01/2023How often do you attend meetings of the clubs or organizations you belong to?Never05/01/2023re you , , , , never , or living with a partner?Living with ryeiuhz0105/01/2023 AUDIT-CAnswerDate RecordedQ1: How often do you have [...] now)?No05/01/2023CommentsUnknownSex and Gender InformationValueDate RecordedSex Assigned at ZzmdsWdlsfw72/19/2023 2:19 PM EDT Legal IrtQathov74/15/2023 6:45 PM EDTGender FyvwjorxWiqqwh53/19/2023 2:19 PM EDT Sexual OrientationNot on filedocumented as of this encounter Miscellaneous Notes * Telephone Encounter - Renetta Couch MA - 06/09/2025 10:42 AM EST Pt was last seen on 05/06 documented in this encounter Plan of Treatment DateTypeDepartmentCare Team (Latest Contact Info)Hrofxqyhqcy43/30/2025 2:15 PM ESTOffice Visit [facility] [address] [place] [address] Judith Garnett, [address] [place] [address] documented as of this encounter Goals GoalPatient Goal TypeAssociated ProblemsRecent ProgressPatient-Stated?Author Help patient manage antidepressant medication Care PlanPatient on antidepressant monitoring Jesus Machado, PAdocumented as of this encounter Visit Diagnoses Diagnosis Peripheral edema- Primary Edema Psychophysiological insomnia Persistent disorder of initiating or maintaining sleep Sciatica of left side Anxiety Anxiety state, unspecified documented in this encounter Additional Health Concerns Active ProblemsNoted DateDiagnosed DatePatient on antidepressant monitoring plan 5AssessmentNoted TimePHQ-9 Depression Total Score: 10108/07/2023 1:26 PM ESTdocumented as of this encounter Care Teams Team MemberRelationshipSpecialtyStart DateEnd Date Jus Sprague DO [address] [place] [address] PCP - GeneralFamily Medicine11/22/22 Jesus Green PA [address] [place] [address] Physician AssistantFamily Medicine03/20/24 Guillermina Martínez DO [address] [place] [address] Pulmonary Disease03/20/24documented as of this encounter
--- OUTSIDE RECORDS SUMMARY | 2025-06-10 15:12 | XMS_ITS | Encounter Summary ---
Author Organization [facility] Address [address] [place] [address] Care Team Providers Care Respite Worker Name Role Phone Jus Sprague DO Primary Care Provider [phone] Jesus Green Unavailable Guillermina Martínez DO Unavailable [phone] Reason for Visit * ReasonOnset DateCommentsMed Mkonjn9406/04/2025 Encounter Details DateTypeDepartmentCare Team (Latest Contact Info)Ezuwoaxvfpm57/19/2025Refill [facility] [address] [facility] [address] [place] [address] Carla Prado MA Psychophysiological insomnia Social History Tobacco UseTypesPacks/DayYears UsedDateSmoking Tobacco: NeverSmokeless [...] relatives?Once a week05/01/2023How often do you attend mu-ism or mosque services?Never05/01/2023o you belong to any clubs or organizations such as mu-ism groups, unions, fraNumblebee or athletic groups, or school groups?No05/01/2023How often do you attend meetings of the clubs or organizations you belong to?Never05/01/2023re you , , , , never , or living with a partner?Living with zqcytpl1505/01/2023 AUDIT-CAnswerDate RecordedQ1: How often do you have [...] now)?No05/01/2023CommentsUnknownSex and Gender InformationValueDate RecordedSex Assigned at WzetwWdrhhj38/19/2023 2:19 PM EDT Legal QmtWoehhd54/15/2023 6:45 PM EDTGender RdyetlxtMwbmze84/19/2023 2:19 PM EDT Sexual OrientationNot on filedocumented as of this encounter Plan of Treatment DateTypeDepartmentCare Team (Latest Contact Info)Tlgrwgvprfg27/30/2025 2:15 PM ESTOffice Visit [facility] [address] [place] [address] Judith Garnett DO [address] [place] [address] documented as of this encounter Goals GoalPatient Goal TypeAssociated ProblemsRecent ProgressPatient-Stated?Author Help patient manage antidepressant medication Care PlanPatient on antidepressant monitoring planJesus Worthington, PAdocumented as of this encounter Visit Diagnoses Diagnosis Psychophysiological insomnia Persistent disorder of initiating or maintaining sleep documented in this encounter Additional Health Concerns Active ProblemsNoted DateDiagnosed DatePatient on antidepressant monitoring plan 12/11/2024ssessmentNoted TimePHQ-9 Depression Total Score: 10108/07/2023 1:26 PM ESTdocumented as of this encounter Care Teams Team MemberRelationshipSpecialtyStart DateEnd Date Jus Sprague DO [address] [place] [address] PCP - GeneralFamily Medicine11/22/22 Jesus Green PA [address] [place] [address] Physician AssistantFamily Medicine03/20/24 Guillermina Martínez DO [address] [place] [address] Pulmonary Disease03/20/24documented as of this encounter
--- OUTSIDE RECORDS SUMMARY | 2025-06-10 15:12 | XMS_ITS | Patient Health Record ---
Author Organization [facility] Address [address] [place] [address] Care Team Providers Care An/Syq 13 Nav/C2 Operator Name Role Phone MISS Isabel Johansen Primary Care Provider Briseyda Willis Unavailable [phone] Jony Steven Unavailable [phone] Reason For Referral No Information Problems Problem Type SNOMED Code ICD Code Onset Dates Problem Status W/U Status Risk Notes Problem Posttraumatic stress disorder (4 6398151) Post traumatic stress disorder (PTSD) (F43.10) Activeconfirmed Encounters Encounter Location Date Provider Diagnosis [facility] [address] [place] [address] 07/08/2024 Jony Steven [facility] [address] [place] [address]/09/2024 Isabel JohansenPost traumatic stress disorder (PTSD) F43.10[facility] [address] [place] [address]/23/2024Isabel MillerPost traumatic stress disorder (PTSD) F43.10[facility] [address] [place] [address]/Katfrench MillerPost traumatic stress disorder (PTSD) F43.10[facility] [place] [address] 09/23/2024Katfrench MillerPost traumatic stress disorder (PTSD) F43.10[facility] [place] [address]/24/2025Katelyn MillerPost traumatic stress disorder (PTSD) F43.10[facility] [place] [address]/01/2025Katelyn MillerPost traumatic stress disorder (PTSD) F43.10[facility] [place] [address]/11/2024Katelyn MillerPost traumatic stress disorder (PTSD) F43.10[facility] [place] [address] 11/25/2024Katelyn MillerPost traumatic stress disorder (PTSD) F43.10 Assessments Encounter Date Diagnosis (ICD Code) Assessment Notes Treatment Notes Treatment Clinical Notes Section Notes 06/24/2024 Post traumatic stress disorder ( PTSD) (ICD-10 - F43.10) 07/08/2024ost traumatic stress disorder (PTSD) (ICD-10 - F43.10)09/09/2024Post traumatic stress disorder (PTSD) (ICD-10 - F43.10)09/23/2024Post traumatic stress disorder (PTSD) (ICD-10 - F43.10)10/07/2024Post traumatic stress disorder (PTSD) (ICD-10 - F43.10)10/21/2024Post traumatic stress disorder (PTSD) (ICD-10 - F43.10)11/18/2024Post traumatic stress disorder (PTSD) (ICD-10 - F43.10) 11/25/2024Post traumatic stress disorder (PTSD) (ICD-10 - F43.10) Plan Of Treatment No Information Insurance Providers Payer Name Payer Address Payer Phone Subscriber Number Group Number Insured Name Patient Relationship to Insured Coverage Start Date Coverage End Date [employer]NA[employer]UE DUAL-ELIGB LE [address] [place] [address] [id number] [facility] Self - patient is the insured [facility]ICA[facility] [address] [place] [phone] [id number], RHONDASelf - patient is the [id number] 2024[facility] Non-Par[address] [place] [phone], RHONDASelf - patient is the [id number] 2023MEDICARE [id number] [facility] EVY FANG [id number], RHONDASelf - patient is the insured 2023
== END 2025-06-10 15:10 | disposition home or self-care (01) ==
LOC: WC 15:09
PROVIDERS: PCP Physician Assistant; Visit Provider Podiatrist Foot & Ankle Surgery
DX: E11.621 Type 2 diabetes mellitus with foot ulcer (principal); L97.412 Non-pressure chronic ulcer of right heel and midfoot with fat layer exposed
CPT/HCPCS: 11042